=== PATIENT | male | born 1935 | race Caucasian/White ===

== ENCOUNTER → 2024-02-01 | Outpatient (CLI) | payer MEDICARE, BC, SELFPAY ==
--- NOTE | 2024-02-01 | XR_ITS ---
Examination: Hand, left 3 views Technique: Hand AP, oblique, lateral 3 views Date and time of exam: February 01, 2024 at 0722 hours INDICATIONS: Decreased range of motion and pain involving the fourth and fifth digits left hand beginning 4 weeks ago. FINDINGS: Significant osteoarthritis third metacarpal phalangeal joint as well has proximal and distal interphalangeal joints third digit Old deformity ungual tuft tip distal phalanx index finger No acute fracture No dislocation IMPRESSION: Significant osteoarthritis third metacarpophalangeal joint, proximal distal interphalangeal joint third digit
[2024-02-01 08:44] LABS: INR 3.3 (0.9-1.3); Partial Thromboplastin Time 32.8 Seconds (22.0-36.0)
[2024-02-01 08:45] LABS: Prothrombin Time 32.8 Seconds (9.0-12.2)
== END | disposition home or self-care (01) ==
LOC: COPL 06:53
PROVIDERS: PCP Family Medicine; Referring Provider Family Medicine; Visit Provider Radiology Diagnostic Radiology
DX: G56.22 Lesion of ulnar nerve, left upper limb (principal); Z79.01 Long term (current) use of anticoagulants
CPT/HCPCS: 36415; 73130; 85610; 85730

== ENCOUNTER → 2024-02-22 | Outpatient (CLI) | payer MEDICARE, BC, SELFPAY ==
--- NOTE | 2024-02-22 16:08 | XR_ITS ---
Examination: PA lateral chest 2 views Technique: Upright PA lateral chest 2 views Exam date and time: February 22, 2024 1614 hrs. Comparison April 2023 Indications: Coughing beginning 5 days ago. Findings: No significant cardiac enlargement CABG No pneumonia or pulmonary edema Moderate osteopenia Impression: No pneumonia identified
== END | disposition home or self-care (01) ==
PROVIDERS: PCP Family Medicine; Referring Provider Family Medicine; Visit Provider Family Medicine
DX: R05.9 Cough, unspecified (principal)
CPT/HCPCS: 71046

== ENCOUNTER → 2024-03-11 | Outpatient (CLI) | payer MEDICARE, BC, SELFPAY ==
[2024-03-11 14:32] LABS: Basophils # (Auto) 0.1 Thou/mm3 (0.0-0.2); Basophils % (Auto) 1 % (0-2.5); Eosinophils # (Auto) 0.3 Thou/mm3 (0.0-0.5); Eosinophils % (Auto) 3 % (0-10); Hematocrit 42.2 % (41.0-53.0); Hemoglobin 14.1 g/dL (13.5-16.0); Immature Granulocytes % (Auto) 0 % (0-0); Immature Granulocytes Auto 0.03 Thou/mm3 (0.00-0.00); Lymphocytes # (Auto) 2.1 Thou/mm3 (1.0-4.8); Lymphocytes % (Auto) 28 % (10-50); Mean Corpuscular HGB Conc 33.4 g/dl (31.0-37.0); Mean Corpuscular Hemoglobin 30.7 pg (25.0-35.0); Mean Corpuscular Volume 92 fL (80-100); Monocytes # (Auto) 0.8 Thou/mm3 (0.0-0.8); Monocytes % (Auto) 11 % (0-12); Neutrophils # (Auto) 4.3 Thou/mm3 (1.8-7.7); Neutrophils % (Auto) 57 % (37-80); Nucleated Red Blood Cell % 0 /100 WBC (0); Platelet Count 192 Thou/mm3 (140-440); RDW Standard Deviation 47.8 fL (35.1-43.9); White Blood Count 7.6 Thou/mm3 (3.8-10.6)
[2024-03-11 14:35] LABS: INR 1.8 (0.9-1.3); Partial Thromboplastin Time 29.1 Seconds (22.0-36.0); Prothrombin Time 18.5 Seconds (9.0-12.2)
[2024-03-11 15:01] LABS: Alanine Aminotransferase 23 U/L (10-49); Albumin, Serum 4.5 gm/dL (3.4-4.8); Albumin/Globulin Ratio 1.7 (1.2-2.2); Alkaline Phosphatase 113 U/L (46-116); Anion Gap 9 (7-16); Aspartate Amino Transferase 23 U/L (0-34); BUN/Creatinine Ratio 20 Ratio (12-20); Bilirubin,Total 0.5 mg/dL (0.3-1.2); Blood Urea Nitrogen 32 mg/dL (9-23); Calcium 9.5 mg/dL (8.3-10.6); Calcium (Corrected) 9.5 mg/dL (8.5-10.1); Carbon Dioxide 24.4 mMol/L (20.0-31.0); Chloride 104 mMol/L (98-107); Creatinine (Component) 1.6 mg/dL (0.6-1.3); Globulin 2.6 gm/dL (2.3-3.5); Glucose 86 mg/dL (74-106); Osmolality,Calculated 279 (275-295); Potassium 4.5 mMol/L (3.4-5.1); Sodium 137 mMol/L (136-145); Total Protein 7.1 gm/dL (5.7-8.2); eGFR 41 See Note
== END | disposition home or self-care (01) ==
LOC: SCTO 12:54
PROVIDERS: PCP Family Medicine; Referring Provider Nurse Practitioner Family; Visit Provider Nurse Practitioner Family
DX: C67.9 Malignant neoplasm of bladder, unspecified (principal); C64.9 Malignant neoplasm of unspecified kidney, except renal pelvis; I82.409 Acute embolism and thrombosis of unspecified deep veins of unspecified lower extremity
CPT/HCPCS: 36415; 80053; 85025; 85610; 85730

== ENCOUNTER 2024-03-14 09:48 | Outpatient (RCR) | payer MEDICARE, BC, SELFPAY | END 2024-04-08 23:59 | disposition home or self-care (01) | LOC: SCTC 09:48 | PROVIDERS: PCP Family Medicine; Referring Provider Family Medicine; Visit Provider Nurse Practitioner Family | DX: Z09 Encounter for follow-up examination after completed treatment for conditions other than malignant neoplasm (principal); Z86.718 Personal history of other venous thrombosis and embolism; Z79.01 Long term (current) use of anticoagulants; Z85.53 Personal history of malignant neoplasm of renal pelvis; Z90.5 Acquired absence of kidney; Z90.6 Acquired absence of other parts of urinary tract; Z85.820 Personal history of malignant melanoma of skin | CPT/HCPCS: 99212; G0463 ==

== ENCOUNTER → 2024-03-31 | Outpatient (CLI) | payer MEDICARE, BC, SELFPAY ==
[2024-03-31 09:50] LABS: Basophils # (Auto) 0.1 Thou/mm3 (0.0-0.2); Basophils % (Auto) 1 % (0-2.5); Eosinophils # (Auto) 0.3 Thou/mm3 (0.0-0.5); Eosinophils % (Auto) 4 % (0-10); Hematocrit 43.8 % (41.0-53.0); Hemoglobin 14.5 g/dL (13.5-16.0); Immature Granulocytes % (Auto) 0 % (0-0); Immature Granulocytes Auto 0.02 Thou/mm3 (0.00-0.00); Lymphocytes # (Auto) 2.4 Thou/mm3 (1.0-4.8); Lymphocytes % (Auto) 33 % (10-50); Mean Corpuscular HGB Conc 33.1 g/dl (31.0-37.0); Mean Corpuscular Volume 94 fL (80-100); Monocytes # (Auto) 0.8 Thou/mm3 (0.0-0.8); Monocytes % (Auto) 11 % (0-12); Neutrophils # (Auto) 3.8 Thou/mm3 (1.8-7.7); Neutrophils % (Auto) 51 % (37-80); Nucleated Red Blood Cell % 0 /100 WBC (0); Platelet Count 176 Thou/mm3 (140-440); RDW Standard Deviation 49.3 fL (35.1-43.9); Red Blood Count 4.68 Miln/mm3 (4.50-5.90); White Blood Count 7.4 Thou/mm3 (3.8-10.6)
[2024-03-31 10:04] LABS: Alanine Aminotransferase 26 U/L (10-49); Albumin, Serum 4.8 gm/dL (3.4-4.8); Albumin/Globulin Ratio 1.8 (1.2-2.2); Alkaline Phosphatase 118 U/L (46-116); Anion Gap 8 (7-16); Aspartate Amino Transferase 23 U/L (0-34); BUN/Creatinine Ratio 21 Ratio (12-20); Bilirubin,Total 0.7 mg/dL (0.3-1.2); Blood Urea Nitrogen 34 mg/dL (9-23); Calcium 9.5 mg/dL (8.3-10.6); Calcium (Corrected) 9.5 mg/dL (8.5-10.1); Carbon Dioxide 26.4 mMol/L (20.0-31.0); Chloride 105 mMol/L (98-107); Creatinine (Component) 1.6 mg/dL (0.6-1.3); Globulin 2.6 gm/dL (2.3-3.5); Glucose 97 mg/dL (74-106); Osmolality,Calculated 285 (275-295); Sodium 139 mMol/L (136-145); Total Protein 7.4 gm/dL (5.7-8.2); eGFR 41 See Note
== END | disposition home or self-care (01) ==
LOC: SCTO 08:56
PROVIDERS: PCP Family Medicine; Referring Provider Nurse Practitioner Family; Visit Provider Nurse Practitioner Family
DX: C67.9 Malignant neoplasm of bladder, unspecified (principal); C64.9 Malignant neoplasm of unspecified kidney, except renal pelvis
CPT/HCPCS: 36415; 80053; 85025

== ENCOUNTER → 2024-04-01 | Outpatient (BNVA) | payer MEDICARE, BC, SELFPAY | END | disposition home or self-care (01) | PROVIDERS: PCP Family Medicine; Referring Provider Family Medicine; Visit Provider Urology | DX: C67.9 Malignant neoplasm of bladder, unspecified (principal); C66.2 Malignant neoplasm of left ureter; N40.1 Benign prostatic hyperplasia with lower urinary tract symptoms; N13.8 Other obstructive and reflux uropathy; I12.9 Hypertensive chronic kidney disease with stage 1 through stage 4 chronic kidney disease, or unspecified chronic kidney disease; N18.30 Chronic kidney disease, stage 3 unspecified; I25.10 Atherosclerotic heart disease of native coronary artery without angina pectoris; Z86.718 Personal history of other venous thrombosis and embolism; E78.00 Pure hypercholesterolemia, unspecified; I25.2 Old myocardial infarction; K21.9 Gastro-esophageal reflux disease without esophagitis; Z95.1 Presence of aortocoronary bypass graft | CPT/HCPCS: 81003; 99212; G0463 ==

== ENCOUNTER → 2024-04-21 | Outpatient (CLI) | payer MEDICARE, BC, SELFPAY ==
--- NOTE | 2024-04-21 15:00 | XR_ITS ---
Examination: Retroperitoneal ultrasound, complete Technique: Multiple high resolution grayscale images of the retroperitoneum obtained, including kidneys and bladder. Exam date and time:April 21, 2024 1539 hours INDICATIONS: Diagnosis right renal tumor post right nephrectomy 2018, also diagnosis bladder cancer, restaging FINDINGS: Absent right kidney Left kidney 10.8 x 7.3 x 5.2 cm cortex 1.5 cm Upper pole 11 mm cyst Moderate renal parenchymal scar formation No solid renal mass lesion Bladder prevoid volume 179 cc No bladder mass Prostate 3.1 x 2.1 x 3.3 cm Calcification versus nodule 14 x 10 x 15 mm IMPRESSION: Moderate left renal parenchymal scar formation Absent right kidney Recommend transrectal prostate sonography follow-up to differentiate 14 mm calcification versus nodule
== END | disposition home or self-care (01) ==
LOC: CDIM 14:59
PROVIDERS: PCP Family Medicine; Referring Provider Urology; Visit Provider Urology
DX: N28.89 Other specified disorders of kidney and ureter (principal); Z90.5 Acquired absence of kidney; C67.9 Malignant neoplasm of bladder, unspecified
CPT/HCPCS: 76770

== ENCOUNTER → 2024-05-02 | Outpatient (CLI) | payer MEDICARE, BC, SELFPAY ==
[2024-05-02 11:44] LABS: INR 3.9 (0.9-1.3)
[2024-05-02 13:20] LABS: Prothrombin Time 39.2 Seconds (9.0-12.2)
== END | disposition home or self-care (01) ==
LOC: COPL 09:28
PROVIDERS: PCP Family Medicine; Referring Provider Family Medicine; Visit Provider Family Medicine
DX: I82.431 Acute embolism and thrombosis of right popliteal vein (principal)
CPT/HCPCS: 36415; 85610

== ENCOUNTER → 2024-05-17 | Outpatient (CLI) | payer MEDICARE, BC, SELFPAY ==
--- NOTE | 2024-05-17 10:06 | XR_ITS ---
Examination: Foot, right, 3 views Technique: AP, oblique, lateral views foot, 3 views Date and time of exam: May 17, 2024 0917 hrs. Indications: Right foot pain beginning 2 weeks ago. Findings: Moderate bunion deformity Mild to moderate osteoarthritis first metatarsophalangeal joint No fracture Large plantar posterior bony calcaneal spurs Impression: Moderate bunion deformity Mild to moderate osteoarthritis first metatarsophalangeal joint Large plantar posterior bony calcaneal spurs
== END | disposition home or self-care (01) ==
PROVIDERS: PCP Family Medicine; Referring Provider Chiropractor; Visit Provider Chiropractor
DX: M19.071 Primary osteoarthritis, right ankle and foot (principal); M77.31 Calcaneal spur, right foot; M21.611 Bunion of right foot
CPT/HCPCS: 73630

== ENCOUNTER 2024-05-19 14:29 | Outpatient (RCR) | payer MEDICARE, BC, SELFPAY ==
--- NOTE | 2024-06-12 18:56 | CTCFLWUP_ITS ---
Patient: JAC LEON : 1935 Page 8 of 8 FOLLOW UP NOTE DATE OF SERVICE: 05/19/2024 NAME: JAC LEON ACCOUNT: [id number] : 1935 AGE: 89 INTERVAL HISTORY: Patient in for follow-up for right lower extremity DVT. Patient is currently taking Coumadin 4 mg daily, Coumadin managed by PCP. Patient reports he has been taking Coumadin 4 mg for about 5 weeks previously he was on Coumadin 5 mg daily. Patient reports he has an upcoming appointment with [facility] telemedicine for consultation with hematology at the tertiary center due to DVT despite therapeutic dose of Coumadin, previous history of worsening DVTs despite being on Eliquis and Lovenox. Patient's only complaint today is swelling to bilateral lower extremities after a long day of being active, swelling improves when he rests. Patient denies pain to lower extremities, denies numbness, denies tingling. Patient denies chest pain. ONCOLOGY HISTORY: 1. 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 Right nephroureterectomy. F/U with Dr. Ferrell, last follow-up was on 06/28/2023 2. Remote history of melanoma right mormon, 1991. DIAGNOSIS: IVC filter placed by IR, 06/29/2023. Questionable left mid femoral vein DVT, despite therapeutic dose of Coumadin, (09/24/2023). DATE OF DIAGNOSIS: 07/28/2028 STAGE/TNM: PT 1 papillary urothelial carcinoma, arising in the renal pelvis and distal ureter, mostly low-grade (90%) with areas of high-grade (10%). Focal invasion of the subepithelial connective tissue is seen. pT1 pNx pMX. TREATMENT HISTORY: Care?Plan Start?Date Cycle Day Intent HISTORY OF PRESENT ILLNESS: PREVIOUS NOTE: Jac Leon is a 89-year-old ENG speaking male with the following oncology history. 02/17/2018: Patient had abdominal ultrasound done due to right upper abdominal pain radiating to the back for the last 2years. Ultrasound showed probable small renal arterial calculations on the left and mild left renal parenchymal scar formation. 03/11/2018: Patient had CT scan of the abdomen without contrast which showed subtle hyperdense material in the right renal pelvis. 04/16/2018: Patient had CT scan of the abdomen and pelvis with and without contrast which showed filling defects in the right upper pole infundibulum and calyx, right renal pelvis and 3 locations in the distal right ureter along with small para-aortic paracaval lymph nodes. 05/03/2018: Bone scan was negative for bone mets. 05/13/2018: Right ureter biopsy showed noninvasive low-grade papillary carcinoma. 07/02/2018: Patient underwent fluoroscopic imaging of the upper urinary tract, cystoscopy, retrograde pyelogram, endoscopy evaluation of the entire right upper urinary tract, placement of indwelling ureteral stent on the right. He was found to have 2 small papillary 5 mm tumors in the bladder, extensive papillary tumor in the distal ureter, extensive papillary low-grade appearing papillary tumors in the kidney, namely upper pole, mid renal area and lower pole as well as right renal pelvis. 07/05/2018: Urologist Dr. Angelia Ferrell recommended TURBT of the bladder tumor and laparoscopic right nephroureterectomy. Patient has appointment to see Dr. Baez on 07/23/2018. 07/23/2018: Patient had PET CT scan which was a negative study. 07/28/2018: Right-sided complete nephroureterectomy. 11/02/2018: Ultrasound of the abdomen?Suspicious for subtle right lobe liver mass 5.8 x 4.[address] abdomen/liver follow-up pre and post 4 phase intravenous contrast 11/17/2018: CT scan of the abdomen with and without contrast?no interval recurrent renal tumor or metastatic disease. 10/07/2019: PET CT scan? 12/09/2019: RepeatPET CT scan? 10/10/2020: PET CT scan? 05/04/2021: PET/CT scan? 09/05/2022: Doppler ultrasound study of the right lower extremity started anticoagulation with heparin initially followed by Eliquis. 10/01/2022: Doppler ultrasound study of the right lower extremity? 10/30/2022: Bilateral lower extremity venous Doppler ultrasound study? 11/05/2022: Eliquis discontinued. 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 furosemide - 40 mg 1 tab Daily 2. Plavix - 75 mg 1 tab Continuously 3. warfarin - 4 mg 1 tab As directed 4. warfarin - 5 mg 1 tab Daily Medications Last Reconciled by Angelita Farmer MA on 05/19/2024 ALLERGIES: Penicillins REVIEW OF SYSTEMS: A complete 14-point review of systems was performed and is negative except as noted in interval history. PHYSICAL EXAMINATION: VITAL SIGNS: Temperature?98.6, B/P?138/86, Oxygen?Saturation?97% Weight?183?lbs PAIN: 0 - No pain ECOG Performance Status: 1 - Symptomatic; ambulatory; restricted in strenuous activity GENERAL APPEARANCE: Appears well, in no apparent distress, appropriately interactive. HEENT: Normocephalic, normal conjunctiva, lips without lesions, neck normal range of motion. CARDIOVASCULAR: Normal heart sounds PULMONARY: Normal respiratory effort, no respiratory distress or use of accessory muscles, speaking in full sentences, no tachypnea. EXTREMITIES: No pedal edema or cyanosis. SKIN: Normal skin appearance. NEUROLOGIC: Alert and oriented x4. PSHYCHIATRIC: Appropriate affect, mood normal, behavior normal, intact thought and speech. LABORATORY DATA: I have personally reviewed and interpreted each of the patient?s relevant lab tests, abnormal findings are below: Date 03/31/24 06/09/24 ??WHITE?BLOOD?COUNT?(Thou/mm3) 7.4 7.2 ??RED?BLOOD?COUNT?(Miln/mm3) 4.68 4.63 ??HEMOGLOBIN?(gm/dl) 14.5 14.2 ??HEMATOCRIT?(%) 43.8 42.4 ??PLATELET?COUNT?(Thou/mm3) 176 184 ??NEUTROPHILS?%,?AUTO?(%) 51 54 ??LYMPH?%,?AUTO?(%) 33 32 ??NEUTROPHILS,?AUTO?(Thou/mm3) 3.8 3.9 ??GLUCOSE,RANDOM?(mg/dL) 97 96 ??BLOOD?UREA?NITROGEN?(mg/dL) 34?H 26?H ??CREATININE?(mg/dL) 1.60?H 1.80?H ??SODIUM?(mmol/L) 139 141 ??POTASSIUM?(mmol/L) 5.0 4.5 ??CHLORIDE?(mmol/L) 105 103 ??CrCl?(CandG)?(ml/min) 38.82 33.31 ??AST/SGOT?(Unit/L) 23 19 ??ALT/SGPT?(Unit/L) 26 19 ??ALKALINE?PHOSPHATASE?(Unit/L) 118?H 138?H ??BILIRUBIN,?TOTAL?(mg/dL) 0.7 1.2 ??PROTEIN?TOTAL?(gm/dl) 7.4 6.8 ??ALBUMIN,?SERUM?(gm/dl) 4.8 4.3 ??GLOBULIN?(gm/dl) 2.6 2.5 ??ALBUMIN/GLOBULIN?RATIO 1.8 1.7 ??CALCIUM,?SERUM?(mg/dL) 9.5 9.0 ??CALCIUM?SERUM?(CORRECTED)?(mg/dL) 9.5 9.0 ASSESSMENT/PLAN: 1. 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 Right nephroureterectomy at [facility]. PET CT scan essentially negative, 05/04/2021. F/U with Dr. Ferrell, last f/u 06/2023 No clinical evidence of recurrence of urothelial carcinoma. 2. Remote history of melanoma right mormon, s/p resection, 1991. Patient denies any skin concerns. 3. Right lower extremity DVT (10/01/2022) started on Eliquis. Eliquis discontinued on 11/05/2022 due to progression of the DVT. Patient is started on Lovenox 120 mg subcu daily. Lovenox discontinued on 12/18/2022 due to progression of DVT. Currently Mr. Leon is on Coumadin (12/18/2022?) IVC ?lter placed by IR, 06/29/2023. Right leg DVT, questionable left mid femoral vein DVT, despite therapeutic dose of Coumadin, (09/24/2023). 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 Will check for myeleoma and prostate cancer and any other malignancy as patient have recurrent tumor ORDERS: Order # Description [id number] Serum Protein Electrophoresis + Serum Immunofixation Electrophoresis [id number] CT Scan + Abdomen and Pelvis + Chest + With W/O Contrast [id number] PSA [id number] + MD Follow Up 4 Week RETURN TO CLINIC: 4 weeks BILLING AND COMPLIANCE: I reviewed external records from providers outside my specialty as summarized above. I spent a total of 50 minutes on this patient?s care on the day of their visit excluding time spent related to any billed procedures. This time includes time spent with the patient as well as time spent documenting in the medical record, reviewing patients records and tests, obtaining history, placing orders, communicating with other healthcare professionals, counseling the patient, family or caregiver, and/or care coordination for the diagnoses above. Electronically Signed by: {Object.Sanct_ID*[email or web address]@M}, {Object.Sanct_ID*PnP.Suffix@U} D: {Object.Sanct_Date} T: {Object.Sanct_Time} CC: PCP: Fazal Carrillo Referring: Fazal Carrillo This document was completed utilizing speech recognition software. Grammatical errors, random word insertions, pronoun errors, and incomplete sentences are an occasional consequence of this system due to software limitations, ambient noise, and hardware issues. Any formal questions or concerns about the content, text or information contained within the body of this dictation should be directly addressed to the provider for clarification.
== END 2024-06-06 23:59 | disposition home or self-care (01) ==
LOC: SCTC 14:29
PROVIDERS: PCP Family Medicine; Referring Provider Family Medicine; Visit Provider Internal Medicine Hematology & Oncology
DX: Z08 Encounter for follow-up examination after completed treatment for malignant neoplasm (principal); Z85.51 Personal history of malignant neoplasm of bladder; Z86.718 Personal history of other venous thrombosis and embolism; Z79.01 Long term (current) use of anticoagulants; Z85.820 Personal history of malignant melanoma of skin; R60.0 Localized edema; Z90.6 Acquired absence of other parts of urinary tract
CPT/HCPCS: 99212; G0463

== ENCOUNTER → 2024-06-01 | Outpatient (CLI) | payer MEDICARE, BC, SELFPAY ==
[2024-06-01 17:53] LABS: INR 5.6 (0.9-1.3); Prothrombin Time 54.6 Seconds (9.0-12.2)
== END | disposition home or self-care (01) ==
LOC: COPL 16:08
PROVIDERS: PCP Family Medicine; Referring Provider Family Medicine; Visit Provider Family Medicine
DX: I82.431 Acute embolism and thrombosis of right popliteal vein (principal)
CPT/HCPCS: 36415; 85610

== ENCOUNTER → 2024-06-10 | Outpatient (CLI) | payer MEDICARE, BC, SELFPAY ==
[2024-06-09 13:12] LABS: Basophils % (Auto) 1 % (0-2.5); Eosinophils # (Auto) 0.3 Thou/mm3 (0.0-0.5); Eosinophils % (Auto) 4 % (0-10); Hematocrit 42.4 % (41.0-53.0); Hemoglobin 14.2 g/dL (13.5-16.0); Immature Granulocytes % (Auto) 0 % (0-0); Immature Granulocytes Auto 0.01 Thou/mm3 (0.00-0.00); Lymphocytes # (Auto) 2.3 Thou/mm3 (1.0-4.8); Lymphocytes % (Auto) 32 % (10-50); Mean Corpuscular HGB Conc 33.5 g/dl (31.0-37.0); Mean Corpuscular Hemoglobin 30.7 pg (25.0-35.0); Mean Corpuscular Volume 92 fL (80-100); Monocytes # (Auto) 0.7 Thou/mm3 (0.0-0.8); Monocytes % (Auto) 10 % (0-12); Neutrophils # (Auto) 3.9 Thou/mm3 (1.8-7.7); Neutrophils % (Auto) 54 % (37-80); Nucleated Red Blood Cell % 0 /100 WBC (0); Platelet Count 184 Thou/mm3 (140-440); RDW Standard Deviation 44.7 fL (35.1-43.9); Red Blood Count 4.63 Miln/mm3 (4.50-5.90); White Blood Count 7.2 Thou/mm3 (3.8-10.6)
[2024-06-09 13:20] LABS: Alanine Aminotransferase 19 U/L (10-49); Albumin, Serum 4.3 gm/dL (3.4-4.8); Albumin/Globulin Ratio 1.7 (1.2-2.2); Alkaline Phosphatase 138 U/L (46-116); Anion Gap 10 (7-16); Aspartate Amino Transferase 19 U/L (0-34); BUN/Creatinine Ratio 14 Ratio (12-20); Bilirubin,Total 1.2 mg/dL (0.3-1.2); Blood Urea Nitrogen 26 mg/dL (9-23); Carbon Dioxide 28.2 mMol/L (20.0-31.0); Chloride 103 mMol/L (98-107); Creatinine (Component) 1.8 mg/dL (0.6-1.3); Globulin 2.5 gm/dL (2.3-3.5); Glucose 96 mg/dL (74-106); Osmolality,Calculated 285 (275-295); Potassium 4.5 mMol/L (3.4-5.1); Sodium 141 mMol/L (136-145); Total Protein 6.8 gm/dL (5.7-8.2); eGFR 36 See Note
--- NOTE | 2024-06-10 14:00 | XR_ITS ---
Examination: CT chest, without intravenous contrast. CT abdomen, without intravenous contrast. CT pelvis, without intravenous contrast. 2-D sagittal and coronal reconstructions. 3-D reconstructions. Date and time of exam:June 10, [address] chest September 29, 2022, renal sonogram April 21, 2024, CT abdomen pelvis May 15, 2022, CT soft tissue neck August 26, 2022 INDICATIONS: Diagnosis right kidney cancer, post surgical removal, bladder cancer 2019 restaging CTDI vol (mgy) 8.89 DLP (MGycm)626 Technique: Multiple CT images, 3.0 mm slice thickness, obtained chest, abdomen, pelvis, with the high-resolution 64 slice scanner.. Sagittal and coronal 2-D reconstructions are obtained. 3-D reconstructions Low dose protocols were performed. One or more of the following dose reduction techniques were used; automated exposure control, adjustment of the mA and/or KV according to patient size, use of iterative reconstruction technique. Findings: AP dimension ascending thoracic aorta 4.2 cm Mean pulmonary artery segment measures 32 mm Significant coronary artery calcification Mild enlargement cardiac contour No paratracheal tracheobronchial or bronchopulmonary adenopathy Stable bilateral pulmonary nodules compared to CT chest September 29, 2022, no new pulmonary nodules Atelectasis in the right lower lobe No interval pneumonia or pulmonary edema No interval liver or splenic lesion No gallstones No pancreatic mass Normal adrenal glands. IVC filter. Absent right kidney No left renal solid mass No ascites No bowel obstruction Normal appendix Colonic diverticulosis Contracted urinary bladder with no focal urinary bladder mass lesion Prostate is not enlarged Moderate osteopenia Advanced disc narrowing L4-L5 IMPRESSION: No interval metastatic disease
== END | disposition home or self-care (01) ==
PROVIDERS: PCP Family Medicine; Referring Provider Internal Medicine Hematology & Oncology; Visit Provider Internal Medicine Hematology & Oncology
DX: C67.9 Malignant neoplasm of bladder, unspecified (principal); C64.9 Malignant neoplasm of unspecified kidney, except renal pelvis; I82.409 Acute embolism and thrombosis of unspecified deep veins of unspecified lower extremity
CPT/HCPCS: 36415; 71250; 74176; 80053; 85025

== ENCOUNTER → 2024-06-28 | Outpatient (CLI) | payer MEDICARE, BC, SELFPAY ==
[2024-06-28 12:43] LABS: INR 2.7 (0.9-1.3)
== END | disposition home or self-care (01) ==
LOC: COPL 11:20
PROVIDERS: PCP Family Medicine; Referring Provider Family Medicine; Visit Provider Family Medicine
DX: I82.431 Acute embolism and thrombosis of right popliteal vein (principal)
CPT/HCPCS: 36415; 85610

== ENCOUNTER → 2024-06-29 | Outpatient (CLI) | payer MEDICARE, BC, SELFPAY ==
--- NOTE | 2024-06-29 11:27 | XR_ITS ---
Examination: Venous duplex lower extremity sonogram, bilateral. Date and time of exam: June 29, 2024 1208 hours INDICATIONS: Bilateral leg swelling and pain 6 months, patient is anticoagulated, venous Doppler September 24, 2023 nonocclusive deep vein thrombus right femoral vein Technique: Multiple sonographic images of the deep venous system have been obtained. B-mode/2-D grayscale imaging of vascular structures and Doppler spectral analysis (waveforms) and color performed Both legs are examined. Findings: Chronic nonocclusive thrombus right superficial femoral popliteal and peroneal veins Chronic nonocclusive thrombus left superficial femoral popliteal perineal veins as well as posterior tibial vein IMPRESSION: Extensive chronic but nonocclusive DVT as above
== END | disposition home or self-care (01) ==
LOC: CDIM 11:15
PROVIDERS: PCP Family Medicine; Referring Provider Internal Medicine Hematology & Oncology; Visit Provider Internal Medicine Hematology & Oncology
DX: I82.413 Acute embolism and thrombosis of femoral vein, bilateral (principal); C64.9 Malignant neoplasm of unspecified kidney, except renal pelvis; C67.9 Malignant neoplasm of bladder, unspecified
CPT/HCPCS: 93970

== ENCOUNTER 2024-06-30 11:41 | Outpatient (RCR) | payer MEDICARE, BC, SELFPAY ==
--- NOTE | 2024-07-05 02:03 | CTCFLWUP_ITS ---
Patient: JAC LEON : 1935 Page 8 of 9 FOLLOW UP NOTE DATE OF SERVICE: 06/30/2024 NAME: JAC LEON ACCOUNT: [id number] : 1935 AGE: 89 INTERVAL HISTORY: Carolyn, an 89yo male with severe allergies causing difficulty breathing and pressure behind eyes, presented for anticoagulation follow-up. His history includes bladder cancer, chronic DVT, melanoma, and IVC filter placement. He reported leg swelling that improves with rest, chest pain on Easter requiring nitroglycerin, and strict adherence to his blood thinner (reduced from 5mg to 4mg daily). Imaging showed chronic blood clots without enlargement. Management includes continuing anticoagulation, daily walking, leg elevation, [facility] Telemedicine referral, and continued cancer surveillance. Patient in for follow-up for right lower extremity DVT. Patient is currently taking Coumadin 4 mg daily, Coumadin managed by PCP. Patient reports he has been taking Coumadin 4 mg for about 5 weeks previously he was on Coumadin 5 mg daily. Patient reports he has an upcoming appointment with [facility] telemedicine for consultation with hematology at the tertiary center due to DVT despite therapeutic dose of Coumadin, previous history of worsening DVTs despite being on Eliquis and Lovenox. Patient's only complaint today is swelling to bilateral lower extremities after a long day of being active, swelling improves when he rests. Patient denies pain to lower extremities, denies numbness, denies tingling. Patient denies chest pain. Chief Complaint Severe allergies causing difficulty breathing, pressure behind the eyes, swelling in legs that improves with rest, chest pain on Easter morning requiring nitroglycerin History of Present Illness Mr. Carolyn Nathan, an 89-year-old male with a history of bladder cancer and chronic blood clots, presents for follow-up of his anticoagulation therapy and evaluation of persistent leg swelling. He reports ongoing allergies since moving to the [place], experiencing severe symptoms year-round, particularly when grass is cut on the cow pasture. He describes feeling significant pressure behind his eyes and difficulty breathing, stating he never had allergies before coming here. The patient's leg swelling remains present but improves with rest or when lying down. He denies any new pain in his legs. Mr. Nathan reports strict adherence to his prescribed blood thinner medication, stating I take the medicine every day. I don't miss. He expresses concern about an upcoming trip to [place], questioning if air travel would be problematic given his condition. On , Mr. Nathan experienced chest pain while preparing food at 3 AM. He reports taking nitroglycerin and resting for about 20 minutes, after which the pain subsided. He confirms that he sees a hedis abstractor for this issue. 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 He recently purchased a tractor with an enclosed cab to reduce sun exposure while mowing. Mr. Nathan notes that he bleeds easily but denies excessive bruising. 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 He mentions taking in stray dogs and states that he doesn't eat a lot of meat. 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) - Inferior vena cava (IVC) filter placement in June 2023 Surgical History - IV filter placement in June 2023 - Bladder cancer surgery (stage 1), kidney removed Medications and Supplements - Blood thinner 4 mg daily - Changed from 5 mg to 4 mg about 5 weeks ago - Patient reports taking it every day without missing doses - Not working as well as it should, patient failing anticoagulation - Nitroglycerin - Taken as needed for chest pain Allergies - 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 in the hospital causing severe symptoms including difficulty breathing - Environmental allergies to [place] allergens, experienced year-round - Environmental allergies triggered by grass cutting on cow pasture Family History - Father: Leukemia, at age 63 - First : Brain aneurysm, Social History - 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 HEENT: Positive for pressure behind the eyes, nasal congestion. Respiratory: Positive for difficulty breathing. Cardiovascular: Positive for leg swelling that improves with rest and elevation. Musculoskeletal: Positive for leg pain. ONCOLOGY HISTORY:?[facility] Hx? 1. 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 Right nephroureterectomy. F/U with Dr. Ferrell, last follow-up was on 06/28/2023 2. Remote history of melanoma right yazidism, 1991. DIAGNOSIS: ?[facility] Dx? IVC filter placed by IR, 06/29/2023. Questionable left mid femoral vein DVT, despite therapeutic dose of Coumadin, (09/24/2023). DATE OF DIAGNOSIS: 07/28/2028 STAGE/TNM: PT 1 papillary urothelial carcinoma, arising in the renal pelvis and distal ureter, mostly low-grade (90%) with areas of high-grade (10%). Focal invasion of the subepithelial connective tissue is seen. pT1 pNx pMX. TREATMENT HISTORY: Care?Plan Start?Date Cycle Day Intent HISTORY OF PRESENT ILLNESS: PREVIOUS NOTE: Jac Leon is a 89-year-old ENG speaking male with the following oncology history. 02/17/2018: Patient had abdominal ultrasound done due to right upper abdominal pain radiating to the back for the last 2years. Ultrasound showed probable small renal arterial calculations on the left and mild left renal parenchymal scar formation. 03/11/2018: Patient had CT scan of the abdomen without contrast which showed subtle hyperdense material in the right renal pelvis. 04/16/2018: Patient had CT scan of the abdomen and pelvis with and without contrast which showed filling defects in the right upper pole infundibulum and calyx, right renal pelvis and 3 locations in the distal right ureter along with small para-aortic paracaval lymph nodes. 05/03/2018: Bone scan was negative for bone mets. 05/13/2018: Right ureter biopsy showed noninvasive low-grade papillary carcinoma. 07/02/2018: Patient underwent fluoroscopic imaging of the upper urinary tract, cystoscopy, retrograde pyelogram, endoscopy evaluation of the entire right upper urinary tract, placement of indwelling ureteral stent on the right. He was found to have 2 small papillary 5 mm tumors in the bladder, extensive papillary tumor in the distal ureter, extensive papillary low-grade appearing papillary tumors in the kidney, namely upper pole, mid renal area and lower pole as well as right renal pelvis. 07/05/2018: Urologist Dr. Angelia Ferrell recommended TURBT of the bladder tumor and laparoscopic right nephroureterectomy. Patient has appointment to see Dr. Baez on 07/23/2018. 07/23/2018: Patient had PET CT scan which was a negative study. 07/28/2018: Right-sided complete nephroureterectomy. 11/02/2018: Ultrasound of the abdomen?Suspicious for subtle right lobe liver mass 5.8 x 4.[address] abdomen/liver follow-up pre and post 4 phase intravenous contrast 11/17/2018: CT scan of the abdomen with and without contrast?no interval recurrent renal tumor or metastatic disease. 10/07/2019: PET CT scan? 12/09/2019: RepeatPET CT scan? 10/10/2020: PET CT scan? 05/04/2021: PET/CT scan? 09/05/2022: Doppler ultrasound study of the right lower extremity started anticoagulation with heparin initially followed by [facility]. 10/01/2022: Doppler ultrasound study of the right lower extremity? 10/30/2022: Bilateral lower extremity venous Doppler ultrasound study? 11/05/2022: Eliquis discontinued. 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 SOCIAL HISTORY: MEDICATIONS: 1. furosemide - 40 mg 1 tab Daily 2. Plavix - 75 mg 1 tab Continuously 3. warfarin - 5 mg 1 tab Daily 4. warfarin - 4 mg 1 tab Daily?[facility] Meds? Medications Last Reconciled by Angelita Farmer MA on 06/30/2024 ALLERGIES: Penicillins REVIEW OF SYSTEMS: A complete 14-point review of systems was performed and is negative except as noted in interval history. PHYSICAL EXAMINATION:?[facility] PE? VITAL SIGNS: Temperature?98.6, B/P?129/81, Oxygen?Saturation?97% Weight?181?lbs PAIN: 0 - No pain ECOG Performance Status: 0 - Asymptomatic and fully active GENERAL APPEARANCE: Appears well, in no apparent distress, appropriately interactive. HEENT: Normocephalic, normal conjunctiva, lips without lesions, neck normal range of motion. CARDIOVASCULAR: Normal heart sounds PULMONARY: Normal respiratory effort, no respiratory distress or use of accessory muscles, speaking in full sentences, no tachypnea. EXTREMITIES: No pedal edema or cyanosis. SKIN: Normal skin appearance. NEUROLOGIC: Alert and oriented x4. PSHYCHIATRIC: Appropriate affect, mood normal, behavior normal, intact thought and speech. LABORATORY DATA: I have personally reviewed and interpreted each of the patient?s relevant lab tests, abnormal findings are below: Physical Examination Skin: Evidence of significant sun damage noted. Laboratory, Imaging, and Diagnostic Test Results - CT scan (date not specified): Negative for metastatic disease, no cancer detected. Multiple chronic blood clots noted. - Venous ultrasound (date not specified): Chronic blood clots present, not disappearing but also not enlarging. Date 03/31/24 06/09/24 ??WHITE?BLOOD?COUNT?(Thou/mm3) 7.4 7.2 ??RED?BLOOD?COUNT?(Miln/mm3) 4.68 4.63 ??HEMOGLOBIN?(gm/dl) 14.5 14.2 ??HEMATOCRIT?(%) 43.8 42.4 ??PLATELET?COUNT?(Thou/mm3) 176 184 ??NEUTROPHILS?%,?AUTO?(%) 51 54 ??LYMPH?%,?AUTO?(%) 33 32 ??NEUTROPHILS,?AUTO?(Thou/mm3) 3.8 3.9 ??GLUCOSE,RANDOM?(mg/dL) 97 96 ??BLOOD?UREA?NITROGEN?(mg/dL) 34?H 26?H ??CREATININE?(mg/dL) 1.60?H 1.80?H ??SODIUM?(mmol/L) 139 141 ??POTASSIUM?(mmol/L) 5.0 4.5 ??CHLORIDE?(mmol/L) 105 103 ??CrCl?(CandG)?(ml/min) 38.82 33.31 ??AST/SGOT?(Unit/L) 23 19 ??ALT/SGPT?(Unit/L) 26 19 ??ALKALINE?PHOSPHATASE?(Unit/L) 118?H 138?H ??BILIRUBIN,?TOTAL?(mg/dL) 0.7 1.2 ??PROTEIN?TOTAL?(gm/dl) 7.4 6.8 ??ALBUMIN,?SERUM?(gm/dl) 4.8 4.3 ??GLOBULIN?(gm/dl) 2.6 2.5 ??ALBUMIN/GLOBULIN?RATIO 1.8 1.7 ??CALCIUM,?SERUM?(mg/dL) 9.5 9.0 ??CALCIUM?SERUM?(CORRECTED)?(mg/dL) 9.5 9.0 ASSESSMENT/PLAN:?[place] Assessment/Plan? 1. 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 Right nephroureterectomy at [facility]. PET CT scan essentially negative, 05/04/2021. F/U with Dr. Ferrell, last f/u 06/2023 No clinical evidence of recurrence of urothelial carcinoma. Mr. Li, an 89-year-old male with a history of bladder cancer and chronic venous thromboembolism, presents for follow-up of lower extremity swelling and evaluation of anticoagulation therapy efficacy. Chronic Venous Thromboembolism Assessment: Patient has a history of chronic venous thromboembolism with persistent lower extremity swelling that improves with rest and elevation. He is currently on anticoagulation therapy (4 mg daily, reduced from 5 mg about 5 weeks ago). Recent CT scan shows no evidence of metastatic disease or cancer recurrence. However, ultrasound reveals persistent chronic blood clots in the legs, which are not resolving despite anticoagulation. The clots are not enlarging, suggesting some efficacy of the current anticoagulation regimen. Given the chronic nature of the clots, there is a possibility of calcification, making them resistant to resolution. An IVC filter was placed in June 2023 to prevent clot migration. Plan: - Continue current anticoagulation therapy (4 mg daily) - Advise patient to: - Walk for 20 minutes daily - Elevate legs for 20 minutes in the evening - Avoid aggressive leg massage - Seek immediate medical attention if legs become more swollen or painful - Refer to [facility] Telemedicine for further evaluation and management - Consider additional imaging studies at [facility] to assess clot characteristics and vascular status - Educate patient on: - Importance of medication adherence - Safe travel practices while on anticoagulation - Risks and benefits of current management approach - Follow up after [facility] consultation to review recommendations and adjust management plan as needed History of Bladder Cancer Assessment: Patient has a history of stage 1 bladder cancer, which was caught early. Recent CT scan shows no evidence of metastatic disease or cancer recurrence. Patient underwent treatment that involved preservation of one kidney, which was at risk. Plan: - Continue surveillance as per oncology guidelines - Maintain communication with [facility] oncology team for coordinated care Cardiovascular Concerns Assessment: Patient reports an episode of chest pain on morning, which resolved with nitroglycerin use and rest after 20 minutes. He is currently under the care of a hedis abstractor. The patient is on anticoagulation therapy, which provides some cardiovascular protection, but is not on aspirin due to bleeding risk considerations. Plan: - Advise patient to report recent chest pain episode to hedis abstractor - Defer decision on aspirin therapy to hedis abstractor, considering bleeding risk vs. potential benefits - Continue current anticoagulation therapy as prescribed - Educate patient on signs and symptoms requiring immediate medical attention Sun Damage Assessment: Patient shows evidence of significant sun damage, likely due to outdoor work activities. Recent lifestyle changes include use of an enclosed tractor cab to reduce sun exposure. Plan: - Educate patient on importance of sun protection measures - Encourage regular skin examinations as part of ongoing cancer surveillance 2. Remote history of melanoma right yazidism, s/p resection, 1991. Patient denies any skin concerns. 3. Right lower extremity DVT (10/01/2022) started on Eliquis. Eliquis discontinued on 11/05/2022 due to progression of the DVT. Patient is started on Lovenox 120 mg subcu daily. Lovenox discontinued on 12/18/2022 due to progression of DVT. Currently Mr. Leon is on Coumadin (12/18/2022?) IVC ?lter placed by IR, 06/29/2023. Right leg DVT, questionable left mid femoral vein DVT, despite therapeutic dose of Coumadin, (09/24/2023). Patient is on Coumadin to 5 mg daily today and follow-up with PCP for inr monitoring Pending consultation with [facility] hematology, tertiary center for second opinion with hematology due to recurrent DVTs despite the therapeutic dose of Coumadin, previous history worsening DVTs despite being on Eliquis and Lovenox. Will check for myeleoma and prostate cancer and any other malignancy as patient have recurrent tumor BILLING AND COMPLIANCE: I reviewed external records from providers outside my specialty as summarized above. I spent a total of 50 minutes on this patient?s care on the day of their visit excluding time spent related to any billed procedures. This time includes time spent with the patient as well as time spent documenting in the medical record, reviewing patients records and tests, obtaining history, placing orders, communicating with other healthcare professionals, counseling the patient, family or caregiver, and/or care coordination for the diagnoses above. Electronically Signed by: Buck Boothe MD T: 2:01 AM CC: PCP: Buck Boothe Referring: Fazal Carrillo This document was completed utilizing speech recognition software. Grammatical errors, random word insertions, pronoun errors, and incomplete sentences are an occasional consequence of this system due to software limitations, ambient noise, and hardware issues. Any formal questions or concerns about the content, text or information contained within the body of this dictation should be directly addressed to the provider for clarification.
== END 2024-07-06 23:59 | disposition home or self-care (01) ==
LOC: SCTC 11:41
PROVIDERS: PCP Family Medicine; Referring Provider Family Medicine; Visit Provider Internal Medicine Hematology & Oncology
DX: I82.503 Chronic embolism and thrombosis of unspecified deep veins of lower extremity, bilateral (principal); Z79.01 Long term (current) use of anticoagulants; Z85.51 Personal history of malignant neoplasm of bladder; Z90.5 Acquired absence of kidney; Z90.6 Acquired absence of other parts of urinary tract
CPT/HCPCS: 99212; G0463

== ENCOUNTER → 2024-07-26 | Outpatient (CLI) | payer MEDICARE, BC, SELFPAY ==
[2024-07-26 09:36] LABS: INR 2.5 (0.9-1.3); Prothrombin Time 25.8 Seconds (9.0-12.2)
== END | disposition home or self-care (01) ==
PROVIDERS: PCP Family Medicine; Referring Provider Family Medicine; Visit Provider Family Medicine
DX: I82.431 Acute embolism and thrombosis of right popliteal vein (principal)
CPT/HCPCS: 36415; 85610

== ENCOUNTER → 2024-07-29 | Outpatient (BNVA) | payer MEDICARE, BC, SELFPAY | END | disposition home or self-care (01) | PROVIDERS: PCP Family Medicine; Referring Provider Family Medicine; Visit Provider Urology | DX: C64.1 Malignant neoplasm of right kidney, except renal pelvis (principal); C67.9 Malignant neoplasm of bladder, unspecified; N40.1 Benign prostatic hyperplasia with lower urinary tract symptoms; N13.8 Other obstructive and reflux uropathy; I25.10 Atherosclerotic heart disease of native coronary artery without angina pectoris; I12.9 Hypertensive chronic kidney disease with stage 1 through stage 4 chronic kidney disease, or unspecified chronic kidney disease; N18.30 Chronic kidney disease, stage 3 unspecified; I82.409 Acute embolism and thrombosis of unspecified deep veins of unspecified lower extremity | CPT/HCPCS: 81003; 99212; G0463 ==

== ENCOUNTER → 2024-07-29 | Outpatient (CLI) | payer MEDICARE, BC, SELFPAY ==
--- NOTE | 2024-07-29 08:28 | XR_ITS ---
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
[2024-07-29 11:34] LABS: Alanine Aminotransferase 15 U/L (10-49); Albumin, Serum 4.8 gm/dL (3.4-4.8); Albumin/Globulin Ratio 1.7 (1.2-2.2); Alkaline Phosphatase 128 U/L (46-116); Anion Gap 8 (7-16); Aspartate Amino Transferase 17 U/L (0-34); BUN/Creatinine Ratio 16 Ratio (12-20); Bilirubin,Total 1.1 mg/dL (0.3-1.2); Blood Urea Nitrogen 27 mg/dL (9-23); Calcium 9.3 mg/dL (8.3-10.6); Calcium (Corrected) 9.3 mg/dL (8.5-10.1); Carbon Dioxide 27.1 mMol/L (20.0-31.0); Cardiac Risk Estimate 2.7 RATIO (4.0-6.7); Chloride 106 mMol/L (98-107); Cholesterol 101 mg/dL (132-200); Creatinine (Component) 1.7 mg/dL (0.6-1.3); Globulin 2.8 gm/dL (2.3-3.5); Glucose 109 mg/dL (74-106); HDL Cholesterol 37 mg/dL (40-60); LDL Cholesterol,Calculated 46 mg/dL (0-130); Osmolality,Calculated 287 (275-295); Potassium 5.2 mMol/L (3.4-5.1); Prostate Specific Antigen 0.49 ng/mL (0-4.00); Sodium 141 mMol/L (136-145); Total Protein 7.6 gm/dL (5.7-8.2); Triglycerides 88 mg/dL (30-150); eGFR 38 See Note
== END | disposition home or self-care (01) ==
LOC: CDIM 08:17 → COPL 08:44
PROVIDERS: PCP Family Medicine; Referring Provider Family Medicine; Visit Provider Family Medicine
DX: M51.369 Other intervertebral disc degeneration, lumbar region without mention of lumbar back pain or lower extremity pain (principal); M48.061 Spinal stenosis, lumbar region without neurogenic claudication; N42.9 Disorder of prostate, unspecified; E78.1 Pure hyperglyceridemia; Z13.1 Encounter for screening for diabetes mellitus
CPT/HCPCS: 36415; 72110; 80053; 80061; 84153

== ENCOUNTER → 2024-08-10 | Outpatient (CLI) | payer MEDICARE, BC, SELFPAY ==
[2024-08-10 10:33] LABS: INR 2.5 (0.9-1.3); Prothrombin Time 26.1 Seconds (9.0-12.2)
[2024-08-10 10:41] LABS: Free T4 (Free Thyroxine) 0.95 ng/dL (0.89-1.76); Thyroid Stimulating Hormone 4.93 uIU/mL (0.55-4.78)
== END | disposition home or self-care (01) ==
LOC: COPL 09:42
PROVIDERS: PCP Family Medicine; Referring Provider Family Medicine; Visit Provider Family Medicine
DX: E03.2 Hypothyroidism due to medicaments and other exogenous substances (principal); I82.431 Acute embolism and thrombosis of right popliteal vein
CPT/HCPCS: 36415; 84439; 84443; 85610

== ENCOUNTER → 2024-09-12 | Outpatient (CLI) | payer MEDICARE, BC, SELFPAY ==
--- NOTE | 2024-09-12 15:45 | XR_ITS ---
Examination: MRI lumbar spine without contrast Date and time of exam: September 12, 2024 1444 hours Comparison December 27, 2019 INDICATIONS: Lifting injury 20 years ago with persistent low back pain Technique: Multiple MRI axial and sagittal sections lumbar spine. Sagittal T2-weighted images, TR 3500, TE 118 T1 weighted transverse sections, TR 688 T8.5, T2-weighted sagittal sections T1 weighted sagittal sections TR 621, TE 30 T2 axial sections, TR 4, 190, TE 84. Findings: Transitional S1 vertebral body No lumbar fracture Moderate disc narrowing L4-L5, advanced disc narrowing L5-S1 No spondylolisthesis L5-S1 3 mm central lumbar disc bulge with mild bilateral L5 ganglionic compression L4-L5 2 mm central lumbar disc bulge L3-L4 no disc protrusion L2-L3 no disc protrusion L1-L2 no disc protrusion IMPRESSION: Advanced degenerative disc disease L5-S1 L5-S1 3 mm central lumbar disc bulge, bilateral neural foraminal stenosis with mild bilateral L5 ganglionic compression L4-L5 2 mm central lumbar disc bulge
== END | disposition home or self-care (01) ==
PROVIDERS: PCP Family Medicine; Referring Provider Family Medicine; Visit Provider Family Medicine
DX: M51.370 Other intervertebral disc degeneration, lumbosacral region with discogenic back pain only (principal); M51.360 Other intervertebral disc degeneration, lumbar region with discogenic back pain only
CPT/HCPCS: 72148

== ENCOUNTER → 2024-09-12 | Outpatient (CLI) | payer MEDICARE, BC, SELFPAY ==
[2024-09-05 10:22] LABS: Basophils # (Auto) 0.0 Thou/mm3 (0.0-0.2); Basophils % (Auto) 1 % (0-2.5); Eosinophils # (Auto) 0.2 Thou/mm3 (0.0-0.5); Eosinophils % (Auto) 4 % (0-10); Hematocrit 45.1 % (41.0-53.0); Hemoglobin 14.9 g/dL (13.5-16.0); Immature Granulocytes Auto 0.01 Thou/mm3 (0.00-0.00); Lymphocytes # (Auto) 2.4 Thou/mm3 (1.0-4.8); Lymphocytes % (Auto) 37 % (10-50); Mean Corpuscular HGB Conc 33.0 g/dl (31.0-37.0); Mean Corpuscular Hemoglobin 30.5 pg (25.0-35.0); Mean Corpuscular Volume 92 fL (80-100); Monocytes # (Auto) 0.6 Thou/mm3 (0.0-0.8); Monocytes % (Auto) 10 % (0-12); Neutrophils # (Auto) 3.1 Thou/mm3 (1.8-7.7); Neutrophils % (Auto) 48 % (37-80); Nucleated Red Blood Cell # 0.00 Thou/mm3 (0.00-0.00); Nucleated Red Blood Cell % 0 /100 WBC (0); Platelet Count 192 Thou/mm3 (140-440); RDW Standard Deviation 45.9 fL (35.1-43.9); Red Blood Count 4.89 Miln/mm3 (4.50-5.90); White Blood Count 6.4 Thou/mm3 (3.8-10.6)
[2024-09-05 10:25] LABS: INR 2.0 (0.9-1.3); Prothrombin Time 21.3 Seconds (9.0-12.2)
[2024-09-05 10:38] LABS: Alanine Aminotransferase 16 U/L (10-49); Albumin, Serum 4.9 gm/dL (3.4-4.8); Albumin/Globulin Ratio 2.1 (1.2-2.2); Alkaline Phosphatase 126 U/L (46-116); Anion Gap 7 (7-16); Aspartate Amino Transferase 19 U/L (0-34); BUN/Creatinine Ratio 18 Ratio (12-20); Bilirubin,Total 1.2 mg/dL (0.3-1.2); Blood Urea Nitrogen 33 mg/dL (9-23); Calcium 10.2 mg/dL (8.3-10.6); Calcium (Corrected) 10.2 mg/dL (8.5-10.1); Carbon Dioxide 26.5 mMol/L (20.0-31.0); Chloride 104 mMol/L (98-107); Creatinine (Component) 1.8 mg/dL (0.6-1.3); Globulin 2.3 gm/dL (2.3-3.5); Glucose 106 mg/dL (74-106); Osmolality,Calculated 281 (275-295); Potassium 5.4 mMol/L (3.4-5.1); Sodium 137 mMol/L (136-145); Total Protein 7.2 gm/dL (5.7-8.2); eGFR 36 See Note
== END | disposition home or self-care (01) ==
PROVIDERS: PCP Family Medicine; Referring Provider Nurse Practitioner Family; Visit Provider Nurse Practitioner Family
DX: C67.9 Malignant neoplasm of bladder, unspecified (principal); C64.9 Malignant neoplasm of unspecified kidney, except renal pelvis; I82.409 Acute embolism and thrombosis of unspecified deep veins of unspecified lower extremity; Z53.8 Procedure and treatment not carried out for other reasons
CPT/HCPCS: 36415; 80053; 85025; 85610

== ENCOUNTER 2024-10-12 10:11 | Inpatient (IN) | payer MEDICARE, BC, SELFPAY ==
[2024-10-12] VITALS (9 sets, daily range): BP systolic 132–144; BP diastolic 72–83; PULSE 70–75; RESP 15–97; TEMP 37–38.2; O2SAT 93–99; BMI 26.7
--- NOTE | 2024-10-12 10:52 | XR_ITS ---
Examination: Abdomen AP single view Technique: AP portable supine abdomen, single view Exam date and time: October 12, 2024 1109 hours INDICATIONS: Abdominal pain today. FINDINGS: Mild air and stool throughout the colon A few loops of air distended small bowel Mildly air distended stomach No free air IMPRESSION: Mildly air distended stomach Mild small bowel ileus
--- NOTE | 2024-10-12 10:57 | XR_ITS ---
Examination: AP chest single view Technique one AP portable upright chest single view Date and time: October 12, 2024 1124 hours Comparison February 23, 2024 INDICATIONS: Chest pain today. FINDINGS: Normal heart size. CABG. Cardiac leads satisfactory position. No pneumonia or pulmonary edema IMPRESSION: No pneumonia or pulmonary edema
--- NOTE | 2024-10-12 10:57 | EKG_ITS ---
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
[2024-10-12 11:13] LABS: Lactate (Lactic Acid) 1.3 mMol/L (0.4-2.0)
[2024-10-12 11:16] LABS: Basophils # (Auto) 0.0 Thou/mm3 (0.0-0.2); Basophils % (Auto) 1 % (0-2.5); Eosinophils # (Auto) 0.1 Thou/mm3 (0.0-0.5); Eosinophils % (Auto) 1 % (0-10); Hematocrit 41.5 % (41.0-53.0); Hemoglobin 14.2 g/dL (13.5-16.0); Immature Granulocytes Auto 0.01 Thou/mm3 (0.00-0.00); Lymphocytes # (Auto) 0.9 Thou/mm3 (1.0-4.8); Lymphocytes % (Auto) 18 % (10-50); Mean Corpuscular HGB Conc 34.2 g/dl (31.0-37.0); Mean Corpuscular Hemoglobin 31.1 pg (25.0-35.0); Mean Corpuscular Volume 91 fL (80-100); Monocytes # (Auto) 0.8 Thou/mm3 (0.0-0.8); Monocytes % (Auto) 16 % (0-12); Neutrophils # (Auto) 3.2 Thou/mm3 (1.8-7.7); Neutrophils % (Auto) 64 % (37-80); Nucleated Red Blood Cell # 0.00 Thou/mm3 (0.00-0.00); Nucleated Red Blood Cell % 0 /100 WBC (0); Platelet Count 164 Thou/mm3 (140-440); RDW Standard Deviation 48.0 fL (35.1-43.9); Red Blood Count 4.56 Miln/mm3 (4.50-5.90); White Blood Count 5.0 Thou/mm3 (3.8-10.6)
[2024-10-12] MEDS: SODIUM CHLORIDE 0.9% 500 ML 500 ML 999 ML IV (11:26)
--- NOTE | 2024-10-12 11:37 | EDNOTE_ITS ---
<Statement entered by Asya Veras MD - 10/12/24 15:11> I, Asya Veras MD, have reviewed the history, exam, and assessment of the patient. I have evaluated the patient independently and agree with the plan of care documented by [ ]. All diagnostic studies were reviewed and discussed. I confirm the diagnosis as documented by the Resident. I was present during the Medical Decision Making for this patient. The patient's plan of care was created between myself and the Resident and consistent with our discussion of the patient's case. 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 Patient states that his primary care physician referred him today to the ER because he had some diverticulitis and a fever at his office. Patient states that he has been nauseated and has been having constipation a few days ago and then he took some laxatives with help to improve his constipation and he just had diarrhea. He then mentioned that his abdominal pain did not subside and that today his primary care physician told him to come to the ER. Patient denies having any cough, shortness of breath, chest pain, or active vomiting. Patient states that he has not peed attention to his stool systolic that there was any blood. Otherwise has no other complaints. Patient still passing gas. Of note patient had a fall around 2 weeks ago at he saw his primary care physician for this and primary care physician placed wound dressing and covered the wound. Patient denied hitting his at that time. Denies any smoking, drugs, alcohol Only abdominal surgery is nephrectomy Related Data Home Medications ?Medication ?Instructions ?Recorded ?Confirmed furosemide 20 mg tablet 40 mg PO QDAY 04/19/1910/12 warfarin 5 mg tablet 5 mg PO QDAY 12/23/22 levothyroxine 25 mcg tablet 25 mcg PO DAILY 04/21/23 0 10/12/24 Allergies Allergy/AdvReac Type Severity Reaction Status Date / Time Penicillins Allergy Severe Swelling Verified 10/12/24 10:16 Review of Systems Review of Systems Systems Reviewed: All systems reviewed, normal except as documented Past Medical History Past Medical History CARDIAC: Positive Coronary Artery Disease Surgical History OTHER SURGICAL HX: Pacemaker placement, right nephrectomy, angiogram and and plasty of right lower extremity, back surgery, prostate surgery Social History SOCIAL: No tobacco use, no illicit drug use, no alcohol use, 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 External ears normal. No rhinorrhea. Moist mucous membranes. Neck: Supple, full range of motion, no observable masses, No meningeal sign. Lungs: No Respiratory distress, clear bilateral. CV: RRR, no murmurs. Abdomen: Distended, but soft, generalized tenderness to palpation, but greater in the LLQ, mildly hypoactive bowel sounds in the L side compared to R side, No rebound tenderness. MSK: No joint swelling, no redness, peripheral pulses presents, lumbar with no edema. Skin: No rashes, petechiae, lesions. Abrasion in the L posterior forearm with pus like material and skin flap. Neuro: No focal neurological deficits appreciated, sensory and motor intact. Psych: Cooperative, appropriate mood and effect. Course Quality Measures none Orders Category Date Time Status Airborne precautions NOW Care 10/12/24 12:12 Active Bedside COVID-19 Antigen Test NOW Care 10/12/24 11:25 Active Bedside Influenza A&B Antigen Test NOW Care 10/12/24 11:25 Completed EKG (ED ONLY) *Do not use* NOW Care 10/12/24 10:57 Completed Insert IV NOW Care 10/12/24 10:[address] abdomen pelvis wo con Stat Exams 10/12/24 11:50 Completed EKG (ED Only) Stat Exams 10/12/24 10:57 Draft XR abdomen 1V Stat Exams 10/12/24 10:52 Completed XR chest 1V portable Stat Exams 10/12/24 10:57 Completed BNP [B-Type Natriuretic Peptide] Stat Lab 10/12/24 13:06 Completed Blood Culture (Lab) Stat Lab 10/12/24 11:44 Received CBC Stat Lab 10/12/24 11:03 Completed CMP [Comprehensive Metabolic Panel] Stat Lab 10/12/24 13:06 Completed Drug Screen,Urine Stat Lab 10/12/24 13:12 Completed Lactate (Lactic Acid) Stat Lab 10/12/24 11:03 Completed Magnesium Stat Lab 10/12/24 13:06 Completed PT [Prothrombin Time with INR] Stat Lab 10/12/24 11:30 Completed PTT [Partial Thromboplastin Time] Stat Lab 10/12/24 11:30 Completed Procalcitonin Stat Lab 10/12/24 13:06 Completed UA [Urinalysis] Stat Lab 10/12/24 13:12 Completed CIPROFLOXACIN/D5w 400 MG IVPB [Cipro Ivpb] Med 10/12/24 11:39 Discontinued 400 mg in 200 ml IV X1 Sodium Chloride 0.9% 1000 ml [Ns] 1,000 ml Med 10/12/24 11:40 Discontinued IV 999 mls/hr Sodium Chloride 0.9% 500 ml [Ns] 500 ml Med 10/12/24 10:59 Discontinued IV 999 mls/hr metroNIDAZOLE/NS 500 MG IVPB [Flagyl 500 mg IV] Med 10/12/24 11:38 Discontinued 500 mg in 100 ml IV X1 Vital Signs Vital signs: Vital Signs Temperature 100.7 F H 10/12/24 11:36 Pulse Rate 70 10/12/24 11:36 Respiratory Rate 20 10/12/24 11:36 Blood Pressure 136/73 H 10/12/24 11:36 Pulse Oximetry (%) 99 10/12/24 11:36 Oxygen Delivery Method Room Air 10/12/24 11:36 Discharge Plan Plan Patient Disposition: Admit Acute Care w/in Hospital Prescriptions/Referrals Prescriptions/Med Rec: No Action warfarin 5 mg tablet 5 mg PO QDAY furosemide 20 mg tablet 40 mg PO QDAY levothyroxine 25 mcg tablet 25 mcg PO DAILY Referrals: Fazal Carrillo MD [Primary Care Provider] - In 1 week Problem List Clinical Impression: Acute diverticulitis Patient/Caregiver Discharge Instructions Print Language: Icelandic Stand Alone Forms: Veronica Award Info., Patient Portal Info Letter MDM Narrative MDM hospital course: Patient was seen and assessed immediately upon arrival to the room. Diagnostic imaging and labs were ordered. At this time patient's L arm wound was cleaned and redressed. 11:40: Abdominal x-ray showed small bowel ileus and distended stomach and chest x-ray was unremarkable. At this time a abdomen CT was ordered. At this time it was also ordered ciprofloxacin and metronidazole given patient's fever, but patient does not have a white count. Also ordered 1.5 L of IV fluids. 1:12: Reviewed CT abd/pelv and showed acute diverticulitis. 1:15: Discussed findings with patient. 14:44: Spoke with IM team for admission for acute diverticulitis. IM team will see the patient for admission. Case disclosed with Attending Dr. Rito Ascencio PGY2 Disclaimer: Even though this this note was dictated by speech recognition and even though it was carefully revised there may still be minor errors in sodder due to voice recognition software. Medication Administration(s) Medication Administration History Discontinued Medications Sodium Chloride (Ns) 500 mls @ 999 mls/hr IV .Q31M ONE Stop: 10/12/24 11:29 Last Infusion: 10/12/24 12:46 Dose: Infused Documented By: Admin: 10/12/24 11:26 Dose: 999 mls/hr Documented By: HUEY Metronidazole (Flagyl 500 Mg Iv) 500 mg in 100 mls @ 100 mls/hr IV X1 ONE Stop: 10/12/24 12:37 Last Admin: 10/12/24 13:56 Dose: 100 mls/hr Documented By: SAIRA Ciprofloxacin/Dextrose (Cipro Ivpb) 400 mg in 200 mls @ 200 mls/hr IV X1 ONE Stop: 10/12/24 12:38 Last Infusion: 10/12/24 13:51 Dose: Infused Documented By: Admin: 10/12/24 12:10 Dose: 200 mls/hr Documented By: HUEY Sodium Chloride (Ns) 1,000 mls @ 999 mls/hr IV .Q1H1M ONE Stop: 10/12/24 12:40 Last Infusion: 10/12/24 13:51 Dose: Infused Documented By: Admin: 10/12/24 12:09 Dose: 999 mls/hr Documented By: HUEY
--- NOTE | 2024-10-12 11:50 | XR_ITS ---
Examination: CT abdomen and pelvis without contrast. Coronal 3-D reconstructions. Sagittal 2-D reconstructions. Date and time of exam:October 12 thousand 25 1211 hours, comparison June 12, 2024 INDICATIONS: Lower abdominal pain beginning 5 days ago, history bladder tumor and kidney tumors CTDI: vol (mGy): 8.16 DLP: (mGycm): 512 Technique: Axial images of the abdomen have been obtained, 3 mm slice thickness Intravenous contrast material has not been administered. Low dose protocols were performed. One or more of the following dose reduction techniques were used; automated exposure control, adjustment of the mA and/or KV according to patient size, use of iterative reconstruction technique. Findings: No focal liver or splenic lesions No gallstones No pancreatic mass Absent right kidney IVC filter Normal appendix A few small bowel loops of mildly fluid distended Colonic diverticulosis, acute diverticulitis descending colon without peridiverticular abscess Bladder intact Normal seminal vesicles Intact urinary bladder Advanced degenerative disc disease of the lower 2 lumbar levels IMPRESSION: Acute diverticulitis distal descending colon, no peridiverticular abscess
[2024-10-12] MEDS: SODIUM CHLORIDE 0.9% 1000 ML 1,000 ML 999 ML IV (12:09)
[2024-10-12] MEDS: CIPROFLOXACIN/D5w 400 MG IVPB 400 MG/200 ML BAG 200 MG IV (12:10)
[2024-10-12 12:15] LABS: INR 1.8 (0.9-1.3); Partial Thromboplastin Time 35.0 Seconds (22.0-36.0); Prothrombin Time 19.3 Seconds (9.0-12.2)
[2024-10-12 13:18] LABS: Collection Type, Urine Voided; Squamous Epithelial Cell,Urine 0 /hpf (0-5); WBC,Urine 0 /hpf (0-5)
[2024-10-12 13:25] LABS: Bilirubin,Urine Negative (Negative); Blood,Urine Negative (Negative); Clarity,Urine Clear (Clear/Hazy); Color,Urine Colorless (Lt Yel-Yel); Glucose, Urine Negative (Negative); Ketones,Urine Negative (Negative); Leukocyte Esterase,Urine Negative (Negative); Nitrite,Urine Negative (Negative); PH,Urine 6.0 (5.0-7.0); Protein,Urine Negative (Neg - Trace); RBC,Urine 1 /hpf (0-3); Specific Gravity,Urine 1.008 (1.001-1.035); Urobilinogen,Urine Negative mg/dL (0.0-1.0)
[2024-10-12 13:31] LABS: Amphetamine/Methamp Scrn,U Negative (Negative); Barbiturate Screen,Urine Negative (Negative); Benzodiazepines Screen,Urine Negative (Negative); Benzoylecgonine Screen, Ur Negative (Negative); Fentanyl Screen,Urine Negative (Negative); Opiate Screen,Urine Negative (Negative); THC Screen,Urine Negative (Negative)
[2024-10-12 13:43] LABS: B-Type Natriuretic Peptide 369 pg/mL (0-100)
[2024-10-12 13:52] LABS: Alanine Aminotransferase 11 U/L (10-49); Albumin, Serum 4.1 gm/dL (3.4-4.8); Albumin/Globulin Ratio 1.6 (1.2-2.2); Alkaline Phosphatase 99 U/L (46-116); Anion Gap 11 (7-16); Aspartate Amino Transferase 20 U/L (0-34); BUN/Creatinine Ratio 15 Ratio (12-20); Bilirubin,Total 1.2 mg/dL (0.3-1.2); Blood Urea Nitrogen 25 mg/dL (9-23); Calcium 8.8 mg/dL (8.3-10.6); Calcium (Corrected) 8.8 mg/dL (8.5-10.1); Carbon Dioxide 23.5 mMol/L (20.0-31.0); Chloride 101 mMol/L (98-107); Creatinine (Component) 1.7 mg/dL (0.6-1.3); Estimated Creatinine Clearance 29.1 mL/min (>60); Globulin 2.5 gm/dL (2.3-3.5); Glucose 96 mg/dL (74-106); Magnesium 2.0 mg/dL (1.6-2.6); Osmolality,Calculated 274 (275-295); Potassium 4.1 mMol/L (3.4-5.1); Procalcitonin 0.17 ng/ml (0.0-0.49); Sodium 135 mMol/L (136-145); Total Protein 6.6 gm/dL (5.7-8.2); eGFR 38 See Note
[2024-10-12] MEDS: metroNIDAZOLE/NS 500 MG IVPB 500 MG/100 ML BAG 100 MG IV (13:56)
--- NOTE | 2024-10-12 15:52 | ESHP_ITS ---
<Statement entered by Malia Yi MD - 10/13/24 16:29> Patient was seen and examined at bedside. I agree on the assessment and plan on this note as documented by resident Thai Davies PGY1. 89-year-old male with past medical history of bladder cancer, hypothyroidism, status post nephrectomy, coronary artery disease status post CABG, status post pacemaker placement, hypertension, CKD, DVT on warfarin who presented to [facility] with a chief complaint of left lower abdominal pain, CT abdomen pelvis showed colonic diverticulosis with acute diverticulitis of distal descending colon, no evidence of any peridiverticular abscess. Patient admitted to the hospital for IV antibiotics, did have a fever on presentation, did not meet SIRS criteria, incidentally patient was found to be COVID-positive, will continue with isolation precautions, stable on room air. Does have underlying cardiac disorders follows Dr. Dover, for underlying CKD follows Dr. Christianson. Will keep patient n.p.o., bowel rest, IV antibiotics, will advance diet as tolerated, pain management with IV pain medication. Hold antihypertensives for now, resume levothyroxine. Disposition med/tele, will assess in a.m. Case discussed with attending Dr. Gloria Yi MD PGY-2 Documentation for date of: 10/12/24 HPI History of Present Illness History of present illness: Mr. Leon is an 89 year old male with a history of bladder cancer, hypothyroidism, status post right nephrectomy, CAD status post CABG, status post pacemaker placement, hypertension, CKD, DVT (now on warfarin) who presents to [facility] ED on 10/12 for lower left abdominal pain and constipation. The patient was admitted for management of acute diverticulitis. The patient stated that he had sudden onset abdominal pain upon waking up about 5 days ago. The pain was a 10 out of 10 pain that is difficult for the patient to describe and is constant throughout the day. Nothing really seems to have helped with the pain, but eating food seems to make the pain worse. In addition to this abdominal pain, the patient has not had any bowel movements since this pain started. Prior to this constipation, the patient usually has loose stools. Patient did try to take some laxatives, which did help him pass more gas, but did not help too much. Patient tried to go to his primary care physician today, but was told to go to the ER for management. Patient continued to pass gas in the ER, and noted that when patient was receiving a CT scan, the shaking made him pass gas quite a lot. Patient continues to have this 10 out of 10 abdominal pain upon admission. Patient endorses fevers and chills. Patient denies shortness of breath, cough, chest pain, heart palpitations, dysuria, hematuria, and numbness/tingling. ED course: Patient elevated blood pressure of 136/73 and elevated temperature of 100.7F. Relevant labs in ED include a WBC of 5.0, PT 19.3, INR 1.8, BUN 25, creatinine 1.7, GFR 38, BNP 369. Patient tested positive for COVID. Patient had CT abdomen pelvis, which showed colonic diverticulosis and acute diverticulitis of the distal descending colon without peridiverticular abscess. Patient was started on ciprofloxacin and metronidazole. Current Medication(s): - Tramadol 50mg Q6h - Coreg 3.125mg BID - Warfarin 5mg daily - Gabapentin 300mg daily - Levothyroxine 25mcg daily - Atorvastatin 40mg at night Allergies (w/ Reactions): Penicillin (swelling) Family History: - Mother:?noncontributory - Father:? heart problems - Siblings:?brother (multiple cancers) Occupation:?[employer] Alcohol Intake:?Patient denies Tobacco/Vape Use:?Patient denies Other Drug Use:?Patient denies Review of Systems Review of Systems Systems Reviewed: All systems reviewed, normal except as documented Exam Vital Signs Temp Pulse Resp BP Pulse Ox O2 Del Method 98.7 F 72 15 132/83 H 95 Room Air 10/12/24 13:58 10/12/24 13:58 10/12/24 13:58 10/12/24 13:58 10/12/24 13:58 10/12/24 13:58 Narrative Exam Physical Exam: General: Alert, distressed. Skin: Warm, dry, intact, no obvious rash. Head: Normocephalic, atraumatic. Eye: Normal conjunctiva, PERRL. Cardiovascular: Regular rate and rhythm, soft systolic murmur, +S1/S2. Respiratory: Lungs are clear to auscultation, respirations unlabored, no crackles, no wheezing. Gastrointestinal: Soft, LLQ tender to light palpation, distended. No guarding or rebound tenderness. Extremities: No edema, no cyanosis, no clubbing. Neuro: No focal deficits observed. Conversant, moving all extremities. No overt cerebellar signs/incoordination. Psychiatric: Cooperative, appropriate affect. Results: Labs 10/12/24 11:03 10/12/24 13:06 Labs: Short CBC 10/12/24 Range/Units 11:03 WBC 5.0 (3.8-10.6) Thou/mm3 Hgb 14.2 (13.5-16.0) g/dL Hct 41.5 (41.0-53.0) % Plt Count 164 (140-440) Thou/mm3 BMP 10/12/24 13:06 Sodium 135 L Potassium 4.1 Chloride 101 Carbon Dioxide 23.5 BUN 25 H Creatinine 1.7 H Glucose 96 Calcium 8.8 Liver Function 10/12/24 Range/Units 13:06 Total Bilirubin 1.2 (0.3-1.2) mg/dL AST 20 (0-34) U/L ALT 11 (10-49) U/L Alkaline Phosphatase 99 (46-116) U/L Albumin 4.1 (3.4-4.8) gm/dL Urine 10/12/24 Range/Units 13:12 Urine Color Colorless A (Lt Yel-Yel) Urine Clarity Clear (Clear/Hazy) Urine pH 6.0 (5.0-7.0) Ur Specific [place] 1.008 (1.001-1.035) Urine Protein Negative (Neg - Trace) Urine Glucose (UA) Negative (Negative) Quality Measures Quality Measures none Advance care planning discussed with:: patient and spouse Medications Home Medications and Allergies Home Medications ?Medication ?Instructions ?Recorded ?Confirmed ?Type furosemide 20 mg tablet 40 mg PO QDAY 04/19/1910/12 History warfarin 5 mg tablet 5 mg PO QDAY 12/23/22 History levothyroxine 25 mcg tablet 25 mcg PO DAILY 04/21/23 0 10/12/24 History Allergies Allergy/AdvReac Type Severity Reaction Status Date / Time Penicillins Allergy Severe Swelling Verified 10/12/24 10:16 Visit Medications Acetaminophen (Acetaminophen 325 Mg Tablet) 650 mg PO Q6H PRN PRN Reason: Fever >101.5 or pain 1-3 Stop: 11/11/24 15:33 Atorvastatin Calcium (Atorvastatin Calcium 20 Mg Tablet) 40 mg PO HS RADHA Stop: 11/11/24 20:59 Metronidazole (Flagyl 500 Mg Iv) 500 mg in 100 mls @ 200 mls/hr IV Q12H RADHA Stop: 10/19/24 15:59 Ciprofloxacin/Dextrose (Cipro Ivpb) 400 mg in 200 mls @ 200 mls/hr IV Q12HR RADHA Stop: 10/19/24 15:47 Levothyroxine Sodium (Levothyroxine Sodium 25 Mcg Tablet) 25 mcg PO ACBR RADHA Stop: 11/12/24 05:59 Ondansetron HCl (Ondansetron Inj 2 Mg/Ml Inj 2 Ml) 4 mg IVP Q6H PRN; Protocol PRN Reason: NAUSEA OR VOMITING Stop: 11/11/24 15:33 Pharmacy Consult (Pharmacy Renal Dose Adjustment 1 Ea) 1 each XX PRN PRN PRN Reason: CONSULT Stop: 11/11/24 15:50 Warfarin Sodium (Warfarin 5 Mg Tablet) 5 mg PO QDAY RADHA Stop: 10/27/24 08:59 Discontinued Medications Sodium Chloride (Ns) 500 mls @ 999 mls/hr IV .Q31M ONE Stop: 10/12/24 11:29 Last Infusion: 10/12/24 12:46 Dose: Infused Metronidazole (Flagyl 500 Mg Iv) 500 mg in 100 mls @ 100 mls/hr IV X1 ONE Stop: 10/12/24 12:37 Last Infusion: 10/12/24 15:39 Dose: Infused Ciprofloxacin/Dextrose (Cipro Ivpb) 400 mg in 200 mls @ 200 mls/hr IV X1 ONE Stop: 10/12/24 12:38 Last Infusion: 10/12/24 13:51 Dose: Infused Sodium Chloride (Ns) 1,000 mls @ 999 mls/hr IV .Q1H1M ONE Stop: 10/12/24 12:40 Last Infusion: 10/12/24 13:51 Dose: Infused Assessment & Plan Plan Mr. Leon is an 89 year old male with a history of bladder cancer, hypothyroidism, status post right nephrectomy, CAD status post CABG, status post pacemaker placement, hypertension, CKD, DVT (now on warfarin) who presents to [facility] ED on 10/12 for lower left abdominal pain and constipation. The patient was admitted for management of acute diverticulitis. #Acute diverticulitis #LLQ abdominal pain #Constipation Patient had acute onset abdominal pain and left lower quadrant started 5 days ago and has been consistent. This is accompanied with constipation, but the patient has been able to pass gas. CT abdomen pelvis taken in ED was positive for colonic diverticulosis with acute diverticulitis of the distal descending colon without peridiverticular abscess. ? Continue ciprofloxacin and metronidazole IV (10/12--) for 7-day course ? Patient to be kept n.p.o. ? Will transition patient to oral antibiotics to complete 7-day course once patient shows improvement in pain and fever upon discharge ? Blood cultures drawn 10/12, pending results #COVID-positive Patient tested positive for COVID. Patient have a fever of 100.7 on arrival to ED. Patient endorses fevers and chills. ? Patient to be put in airborne precautions for 1 week, with home isolation if discharged earlier than 1 week #CKD stage III #Status post right nephrectomy In ED, the patient had a BUN of 25, creatinine of 1.7, and GFR of 38. These renal function numbers appear to be around the patient's baseline. Patient follows Dr. Christianson for nephrology. ? Avoid nephrotoxic drugs ? Renally dose medications ? Monitor with daily renal panel #History of DVT, now on warfarin Patient has a history of DVT. Patient now takes warfarin 5 mg daily. ? Restarted patient's home warfarin 5 mg daily #Hypothyroidism Patient has been taking levothyroxine at home. ? Restarted patient's home levothyroxine 25 mcg daily ? Ordered TSH and free T4 #History of CAD status post CABG #Status post pacemaker Patient has a history of CAD status post CABG and pacemaker placement. Patient follows Dr. Dover for cardiology. ? Will continue to monitor the patient and consults Dr. Dover if necessary ? Ordered lipid panel & A1c for risk stratification ? Restarted patient's home atorvastatin 40 mg at night #Primary hypertension Patient has a history of hypertension. Patient takes Coreg at home. Patient had relatively stable blood pressure of 136/73 in ED ? Will hold home Coreg for now given stable blood pressure ? Will continue to monitor blood pressure DVT Prophylaxis: Warfarin GI Prophylaxis: N/A Bowel: N/A Diet: NPO [place]: N/A Lines: Peripheral IV Antibiotics: Ciprofloxacin and metronidazole (10/12--) Code Status: FULL Reason for Hospitalization: Acute diverticulitis Other Barriers to Discharge: N/A Patient plan of care was discussed with the senior resident Dr. Yi (PGY-2) and attending physician Dr. Gloria Davies, PGY1 Attending Provider Attestation/Addendum I attest that I was physically present for the evaluation, physical examination, lab and imaging review of the patient with the residents. I discussed the case with the residents and agree with the findings and plans of care as documented above. After examination of the patient and review of the clinical data I feel that this patient needs admission to the hospital for further treatment/evaluation. Patient is an 89 years old male with past medical history of bladder cancer, hypothyroidism, status post right nephrectomy, CAD status post CABG, status post pacemaker placement, hypertension, CKD, DVT who presented to the ED with complaint of left lower abdominal pain and constipation for last 5 days. Patient has been taking some laxatives but did not get enough relief. He has been passing gas. He went to see his PCP today for the abdominal pain who recommended to visit the ED. In the ED, patient had a temperature of 100.7, blood pressure 136/73, rest of the vitals were within normal limits. Lab results show INR of 1.8, creatinine of 1.7, which appears to be around his baseline. CT abdomen/pelvis was done, which showed colonic diverticulosis and acute diverticulitis of distal descending colon without peridiverticular abscess. Patient also tested positive for COVID. We will admit the patient for management of acute diverticulitis and intractable abdominal pain. We will start him on IV ciprofloxacin and metronidazole. We will obtain cultures. Also started on an analgesic regimen for abdominal pain. We will continue warfarin for his DVT, levothyroxine for hypothyroidism. We will hold his antihypertensives for now, plan to resume them if he gets hypertensive. Perla Castro MD
[2024-10-12] MEDS: metroNIDAZOLE/NS 500 MG IVPB 500 MG/100 ML BAG 200 MG IV (21:00)
[2024-10-12] MEDS: MELATONIN 3 MG TABLET 6 MG PO (21:00)
[2024-10-12] MEDS: ATORVASTATIN CALCIUM 20 MG TABLET 40 MG PO (21:01)
[2024-10-13] VITALS (10 sets, daily range): BP systolic 116–146; BP diastolic 68–85; PULSE 62–88; RESP 17–96; TEMP 36.2–36.8; O2SAT 94–96; BMI 26.6
[2024-10-13] MEDS: LEVOTHYROXINE SODIUM 25 MCG TABLET PO (05:18)
[2024-10-13 06:12] LABS: Basophils # (Auto) 0.0 Thou/mm3 (0.0-0.2); Basophils % (Auto) 1 % (0-2.5); Eosinophils # (Auto) 0.1 Thou/mm3 (0.0-0.5); Eosinophils % (Auto) 1 % (0-10); Hematocrit 39.7 % (41.0-53.0); Hemoglobin 13.4 g/dL (13.5-16.0); Immature Granulocytes Auto 0.02 Thou/mm3 (0.00-0.00); Lymphocytes # (Auto) 1.4 Thou/mm3 (1.0-4.8); Lymphocytes % (Auto) 26 % (10-50); Mean Corpuscular HGB Conc 33.8 g/dl (31.0-37.0); Mean Corpuscular Hemoglobin 31.2 pg (25.0-35.0); Mean Corpuscular Volume 93 fL (80-100); Monocytes # (Auto) 1.3 Thou/mm3 (0.0-0.8); Monocytes % (Auto) 24 % (0-12); Neutrophils # (Auto) 2.6 Thou/mm3 (1.8-7.7); Neutrophils % (Auto) 48 % (37-80); Nucleated Red Blood Cell # 0.00 Thou/mm3 (0.00-0.00); Nucleated Red Blood Cell % 0 /100 WBC (0); Platelet Count 140 Thou/mm3 (140-440); RDW Standard Deviation 48.2 fL (35.1-43.9); Red Blood Count 4.29 Miln/mm3 (4.50-5.90); White Blood Count 5.5 Thou/mm3 (3.8-10.6)
[2024-10-13 07:00] LABS: Glucose Estimated Average 134 mg/dL (80-131); Hemoglobin A1C 6.3 % Hgb (4.8-6.0)
[2024-10-13 07:07] LABS: Anion Gap 12 (7-16); BUN/Creatinine Ratio 13 Ratio (12-20); Blood Urea Nitrogen 24 mg/dL (9-23); Calcium 8.6 mg/dL (8.3-10.6); Carbon Dioxide 23.4 mMol/L (20.0-31.0); Cardiac Risk Estimate 3.4 RATIO (4.0-6.7); Chloride 102 mMol/L (98-107); Cholesterol 94 mg/dL (132-200); Creatinine (Component) 1.8 mg/dL (0.6-1.3); Estimated Creatinine Clearance 27.4 mL/min (>60); Free T4 (Free Thyroxine) 0.87 ng/dL (0.89-1.76); Glucose 75 mg/dL (74-106); HDL Cholesterol 28 mg/dL (40-60); LDL Cholesterol,Calculated 51 mg/dL (0-130); Magnesium 1.5 mg/dL (1.6-2.6); Osmolality,Calculated 276 (275-295); Phosphorous 4.1 mg/dL (2.4-5.1); Potassium 4.0 mMol/L (3.4-5.1); Sodium 137 mMol/L (136-145); Thyroid Stimulating Hormone 1.81 uIU/mL (0.55-4.78); Triglycerides 77 mg/dL (30-150); eGFR 36 See Note
[2024-10-13] MEDS: Magnesium Sulfate 4 GM Ivpb 4 GM/50 ML BAG IV (09:15)
[2024-10-13] MEDS: metroNIDAZOLE/NS 500 MG IVPB 500 MG/100 ML BAG 200 MG IV ×2 (09:16→20:17)
--- NOTE | 2024-10-13 09:23 | ESPR_ITS ---
<Statement entered by Malia Yi MD - 10/13/24 14:16> Patient was seen and examined at bedside. I agree on the assessment and plan on this note as documented by resident Thai Davies PGY1. Patient had on isolation and contact precautions incidentally found positive for COVID, still complains of left lower quadrant pain , will continue with IV ciprofloxacin and metronidazole, patient was started on clear liquid diet this morning, tolerated well, will advance diet to mechanically altered/semisolid, pending bowel movement, complaining of constipation will monitor with advancing of diet for now. Otherwise underlying renal function stable, creatinine and GFR at baseline, follows Dr. Griggs outpatient, continue to follow outpatient. Patient's home medication warfarin, levothyroxine was resumed, continue. 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 Will continue warfarin. Patient is pending blood cultures, anticipate discharge in a.m. pending bowel movement, resolution of left lower quadrant pain. Case discussed with attending Dr. Blunt. Malia Yi MD PGY-2 Documentation for date of: 10/13/24 Subjective Subjective Interval history: Overnight events: No acute events overnight. Patient was seen and examined at bedside. AM vitals and labs reviewed. The pain in his left lower quadrant abdomen feels better compared to yesterday. He rates it as a 4 out of 10 and at rest, but he lays on his right side because of a 7 out of 10 pain. No other complaints at this time. Magnesium sulfate repleted to maintain magnesium over 2. Diet changed to clear liquid. Possible discharge tomorrow depending on blood culture results. Review of systems otherwise negative except for what is mentioned above. Exam Vital Signs Temp Pulse Resp BP Pulse Ox O2 Del Method 97.2 F 72 19 123/73 96 Room Air 10/13/24 08:00 10/13/24 08:00 10/13/24 08:00 10/13/24 08:00 10/13/24 08:00 10/13/24 08:00 Narrative Exam Physical Exam: General: Alert, no acute distress. Skin: Warm, dry, intact, no obvious rash. Head: Normocephalic, atraumatic. Eye: Normal conjunctiva, PERRL. Cardiovascular: Regular rate and rhythm, soft systolic murmur, +S1/S2. Respiratory: Lungs are clear to auscultation, respirations unlabored, no crackles, no wheezing. Gastrointestinal: Soft, LLQ tender to light palpation, distended. No guarding or rebound tenderness. Extremities: No edema, no cyanosis, no clubbing. 2+ radial pulse bilaterally, 2+ pedal pulse bilaterally. Bandage on left arm. Neuro: No focal deficits observed. Conversant, moving all extremities. No overt cerebellar signs/incoordination. Psychiatric: Cooperative, appropriate affect. Objective Labs 10/13/24 05:07 10/13/24 05:07 Labs: Laboratory Results - last 24 hr 10/12/24 10/12/24 10/12/24 11:03 11:30 13:06 WBC 5.0 RBC 4.56 Hgb 14.2 Hct 41.5 MCV 91 MCH 31.1 MCHC 34.2 RDW Std Deviation 48.0 H Plt Count 164 Neut % (Auto) 64 Lymph % (Auto) 18 Bowman % (Auto) 16 H Eos % (Auto) 1 Baso % (Auto) 1 Neut # (Auto) 3.2 Lymph # (Auto) 0.9 L Bowman # (Auto) 0.8 Eos # (Auto) 0.1 Baso # (Auto) 0.0 Immature Gran # (Auto) 0.01 H Absolute Nucleated RBC 0.00 Immature Gran % 0 Nucleated RBC % 0 PT 19.3 H INR 1.8 H APTT 35.0 Sodium 135 L Potassium 4.1 Chloride 101 Carbon Dioxide 23.5 Anion Gap 11 BUN 25 H Creatinine 1.7 H Estim Creat Clear Calc 29.1 L eGFR 38 L BUN/Creatinine Ratio [address] Glu mg/dL Hemoglobin A1c Calculated Osmolality 274 L Lactic Acid 1.3 Calcium 8.8 Corrected Calcium 8.8 Phosphorus Magnesium 2.0 Total Bilirubin 1.2 AST 20 ALT 11 Alkaline Phosphatase 99 B-Natriuretic Peptide 369 H Total Protein 6.6 Albumin 4.1 Globulin 2.5 Albumin/Globulin Ratio 1.6 Triglycerides Cholesterol LDL Cholesterol, Calc HDL Cholesterol Cholesterol/HDL Ratio Procalcitonin 0.17 TSH Free T4 Ur Collection Type Urine Color Urine Clarity Urine pH Ur Specific [place] Urine Protein Urine Glucose (UA) Urine Ketones Urine Blood Urine Nitrite Urine Bilirubin Urine Urobilinogen (Auto) Ur Leukocyte Esterase Urine RBC Urine WBC Ur Squamous Epith Cells Urine Bacteria Urine Opiates Screen Urine Fentanyl Screen Ur Barbiturates Screen U Amphetamin/Meth Scrn U Benzodiazepines Scrn U Cocaine Metab Screen U Marijuana (THC) Screen 10/12/24 10/13/24 13:12 05:07 WBC 5.5 RBC 4.29 L Hgb 13.4 L Hct 39.7 L MCV 93 MCH 31.2 MCHC 33.8 RDW Std Deviation 48.2 H Plt Count 140 Neut % (Auto) 48 Lymph % (Auto) 26 Bowman % (Auto) 24 H Eos % (Auto) 1 Baso % (Auto) 1 Neut # (Auto) 2.6 Lymph # (Auto) 1.4 Bowman # (Auto) 1.3 H Eos # (Auto) 0.1 Baso # (Auto) 0.0 Immature Gran # (Auto) 0.02 H Absolute Nucleated RBC 0.00 Immature Gran % 0 Nucleated RBC % 0 PT INR APTT Sodium 137 Potassium 4.0 Chloride 102 Carbon Dioxide 23.4 Anion Gap 12 BUN 24 H Creatinine 1.8 H Estim Creat Clear Calc 27.4 L eGFR 36 L BUN/Creatinine Ratio [address] Glu mg/dL 134 H Hemoglobin A1c 6.3 H Calculated Osmolality 276 Lactic Acid Calcium 8.6 Corrected Calcium Phosphorus 4.1 Magnesium 1.5 L Total Bilirubin AST ALT Alkaline Phosphatase B-Natriuretic Peptide Total Protein Albumin Globulin Albumin/Globulin Ratio Triglycerides 77 Cholesterol 94 L LDL Cholesterol, Calc 51 HDL Cholesterol 28 L Cholesterol/HDL Ratio 3.4 L Procalcitonin TSH 1.81 Free T4 0.87 L Ur Collection Type Voided Urine Color Colorless A Urine Clarity Clear Urine pH 6.0 Ur Specific [place] 1.008 Urine Protein Negative Urine Glucose (UA) Negative Urine Ketones Negative Urine Blood Negative Urine Nitrite Negative Urine Bilirubin Negative Urine Urobilinogen (Auto) Negative Ur Leukocyte Esterase Negative Urine RBC 1 Urine WBC 0 Ur Squamous Epith Cells 0 Urine Bacteria None Urine Opiates Screen Negative Urine Fentanyl Screen Negative Ur Barbiturates Screen Negative U Amphetamin/Meth Scrn Negative U Benzodiazepines Scrn Negative U Cocaine Metab Screen Negative U Marijuana (THC) Screen Negative Quality Measures Quality Measures none Advance care planning discussed with:: patient Assessment & Plan Assessment Current Active Medications: Generic Name Dose Route Start Last Admin Trade Name Freq PRN Reason Stop Dose Admin Acetaminophen 650 mg 10/12/24 15:34 Acetaminophen 325 Mg Tablet PO 11/11/24 15:33 Q6H PRN Fever >101.5 or pain 1-3 Atorvastatin Calcium 40 mg 10/12/24 21:00 10/12/24 21:01 Atorvastatin Calcium 20 Mg Tablet PO 11/11/24 20:59 40 mg HS RADHA Administration Metronidazole 500 mg in 100 mls @ 200 mls/hr 10/12/24 22:00 10/13/24 09:16 Flagyl 500 Mg Iv IV 10/19/24 21:59 200 mls/hr Q12HR RADHA Administration Ciprofloxacin/Dextrose 200 mg in 100 mls @ 100 mls/hr 10/13/24 09:00 Cipro Ivpb IV 10/20/24 08:59 Q12HR RADHA Magnesium Sulfate 4 gm in 50 mls @ 12.5 mls/hr 10/13/24 07:59 10/13/24 09:15 Magnesium Sulfate Ivpb IV 10/13/24 11:58 12.5 mls/hr X1 ONE Administration Levothyroxine Sodium 25 mcg 10/13/24 06:00 10/13/24 05:18 Levothyroxine Sodium 25 Mcg Tablet PO 11/12/24 05:59 25 mcg ACBR RADHA Administration Melatonin 6 mg 10/12/24 21:00 10/12/24 21:00 Melatonin 3 Mg Tablet PO 11/11/24 20:59 6 mg HS RADHA Administration Ondansetron HCl 4 mg 10/12/24 15:34 Ondansetron Inj 2 Mg/Ml Inj 2 Ml IVP 11/11/24 15:33 Q6H PRN NAUSEA OR VOMITING Protocol Pharmacy Consult 1 each 10/12/24 15:51 Pharmacy Renal Dose Adjustment 1 Ea XX 11/11/24 15:50 PRN PRN CONSULT Warfarin Sodium 5 mg 10/13/24 12:00 Warfarin 5 Mg Tablet PO 10/27/24 11:59 1200 RADHA Plan Mr. Leon is an 89 year old male with a history of bladder cancer, hypothyroidism, status post right nephrectomy, CAD status post CABG, status post pacemaker placement, hypertension, CKD, DVT (now on warfarin) who presents to [facility] ED on 10/12 for lower left abdominal pain and constipation. The patient was admitted for management of acute diverticulitis. #Acute diverticulitis #Constipation Patient had acute onset abdominal pain and left lower quadrant started 5 days ago and has been consistent. This is accompanied with constipation, but the patient has been able to pass gas. CT abdomen pelvis taken in ED was positive for colonic diverticulosis with acute diverticulitis of the distal descending colon without peridiverticular abscess. ? Continue ciprofloxacin and metronidazole IV (10/12--) for 7-day course ? Patient on clear liquid diet per GI recommendations ? Will transition patient to oral antibiotics to complete 7-day course once patient shows improvement in pain and fever upon discharge ? Blood cultures drawn 10/12, pending results #COVID-positive Patient tested positive for COVID. Patient have a fever of 100.7 on arrival to ED. Patient endorses fevers and chills. ? Patient to be put in airborne precautions for 1 week, with home isolation if discharged earlier than 1 week #CKD stage III #Status post right nephrectomy In ED, the patient had a BUN of 25, creatinine of 1.7, and GFR of 38. These renal function numbers appear to be around the patient's baseline. Patient follows Dr. Christianson for nephrology. ? Avoid nephrotoxic drugs ? Renally dose medications ? Monitor with daily renal panel #History of DVT, now on warfarin, failed Eliquis and Plavix Patient has a history of DVT. Patient now takes warfarin 5 mg daily. ? Restarted patient's home warfarin 5 mg daily #Hypothyroidism Patient has been taking levothyroxine at home. ? Restarted patient's home levothyroxine 25 mcg daily ? Ordered TSH and free T4, resulted 10/13 as 1.81 and 0.87 respectively #History of CAD status post CABG #Status post pacemaker Patient has a history of CAD status post CABG and pacemaker placement. Patient follows Dr. Dover for cardiology. ? Will continue to monitor the patient and consults Dr. oDver if necessary ? Ordered lipid panel & A1c for risk stratification, resulted on 10/13 as triglycerides 77, cholesterol 94, goal LDL 51, HDL 28, and A1c 6.3 ? Restarted patient's home atorvastatin 40 mg at night ? Repleted magnesium on 10/13 to maintain magnesium above 2.0 #Primary hypertension Patient has a history of hypertension. Patient takes Coreg at home. Patient had relatively stable blood pressure of 136/73 in ED ? Will hold home Coreg for now given stable blood pressure ? Will continue to monitor blood pressure DVT Prophylaxis: Warfarin GI Prophylaxis: N/A Bowel: N/A Diet: Clear liquids [place]: N/A Lines: Peripheral IV Antibiotics: Ciprofloxacin and metronidazole (10/12--) Code Status: FULL Reason for Hospitalization: Acute diverticulitis Other Barriers to Discharge: Pending cultures Patient plan of care was discussed with the senior resident Dr. Yi (PGY-2) and attending physician Dr. Blunt. Thai Davies, PGY1 Attending Provider Attestation/Addendum Rocael, [place] Blunt, DO, attest that I was physically present for the fairchild portions of the service and evaluated the patient with the resident and I reviewed and discussed the case with the resident and agree with the resident's findings and plans of care as documented above Patient seen and eval this a.m. He states that he is feeling much better today, but continues to have some pain in his left lower quadrant of his abdomen. He states that it feels as though there is a knot. He states that he had watery diarrhea at home, but no blood noted. He had had a colonoscopy several years ago, but cannot recall the results. He denies any family or personal history of colon cancer. He has never had history of diverticulitis either. Patient is currently tolerating clear liquid diet. He has no further episodes of nausea or vomiting. Will advance diet as tolerated. Patient has required minimal pain control at this time. Will follow-up blood cultures. It appears the patient had failed subcu heparin and NOACs in the past in the setting of multiple VTE's, thus requires warfarin. Will continue current management. If pain is improved and patient tolerates diet, anticipate discharge within the next 24 hours. Patient had fever yesterday on presentation. Advised patient that he will need a colonoscopy in 6 to 8 weeks following resolution of his symptoms. Patient states that he is able to follow-up with his PCP to obtain the referral.
[2024-10-13] MEDS: CIPROFLOXACIN/D5w 200 MG IVPB 200 MG/100 ML BAG 100 MG IV ×2 (10:38→20:17)
[2024-10-13] MEDS: WARFARIN 5 MG TABLET PO (11:37)
--- NOTE | 2024-10-13 12:00 | PC.SS ---
Patient is 89 year old male presenting to the hospital for acute diverticulitis. [employer] placed phone call to Henna to confirm demographic information. Patient confirmed that she is next of kin and lives with at home. Patient was at bedside with patient. Patient is retired, does not use DME, and PCP is Dr. Fazal Carrillo last appointment was 10/12/24. Patient confirmed pharmacy of choice is [facility] on [address]. Once medically cleared patient would like to return home with . Patient?s will provide transportation. PCP: Dr. aCrrillo Next of kin: Henna Leon ph: [phone] D/C: home
--- NOTE | 2024-10-13 13:54 | PC.SS ---
Addendum entered by MAYRA Wong 10/13/24 15:10: Rounding note: possible d/c tomorrow if patient has BM. Original Note: SS update: possible d/c, on IV antibiotics.
--- NOTE | 2024-10-13 15:48 | PC.PT ---
PT eval only. Patient is xI with bed mobility, transfers, and ambulation. Patient is safe to ambulate to the bathroom and in his room with no AD and no staff. RN made aware.
[2024-10-13] MEDS: MELATONIN 3 MG TABLET 6 MG PO (20:17)
[2024-10-13] MEDS: ATORVASTATIN CALCIUM 20 MG TABLET 40 MG PO (20:17)
[2024-10-14] VITALS: BP 137/80; PULSE 76; RESP 20; TEMP 37.2; O2SAT 95
[2024-10-14 04:00] VITALS: BP 138/79; PULSE 84; RESP 20; TEMP 37; O2SAT 94
[2024-10-14] MEDS: LEVOTHYROXINE SODIUM 25 MCG TABLET PO (05:46)
[2024-10-14 06:08] LABS: Basophils # (Auto) 0.0 Thou/mm3 (0.0-0.2); Basophils % (Auto) 1 % (0-2.5); Eosinophils # (Auto) 0.2 Thou/mm3 (0.0-0.5); Eosinophils % (Auto) 4 % (0-10); Hematocrit 42.4 % (41.0-53.0); Hemoglobin 14.1 g/dL (13.5-16.0); Immature Granulocytes Auto 0.00 Thou/mm3 (0.00-0.00); Lymphocytes # (Auto) 1.2 Thou/mm3 (1.0-4.8); Lymphocytes % (Auto) 31 % (10-50); Mean Corpuscular HGB Conc 33.3 g/dl (31.0-37.0); Mean Corpuscular Hemoglobin 30.3 pg (25.0-35.0); Mean Corpuscular Volume 91 fL (80-100); Monocytes # (Auto) 0.8 Thou/mm3 (0.0-0.8); Monocytes % (Auto) 21 % (0-12); Neutrophils # (Auto) 1.8 Thou/mm3 (1.8-7.7); Neutrophils % (Auto) 44 % (37-80); Nucleated Red Blood Cell # 0.00 Thou/mm3 (0.00-0.00); Nucleated Red Blood Cell % 0 /100 WBC (0); Platelet Count 136 Thou/mm3 (140-440); RDW Standard Deviation 46.6 fL (35.1-43.9); Red Blood Count 4.66 Miln/mm3 (4.50-5.90); White Blood Count 4.0 Thou/mm3 (3.8-10.6)
[2024-10-14 06:31] LABS: Anion Gap 12 (7-16); BUN/Creatinine Ratio 17 Ratio (12-20); Blood Urea Nitrogen 25 mg/dL (9-23); Calcium 9.3 mg/dL (8.3-10.6); Carbon Dioxide 24.4 mMol/L (20.0-31.0); Chloride 102 mMol/L (98-107); Creatinine (Component) 1.5 mg/dL (0.6-1.3); Estimated Creatinine Clearance 32.9 mL/min (>60); Glucose 92 mg/dL (74-106); Magnesium 2.2 mg/dL (1.6-2.6); Osmolality,Calculated 280 (275-295); Phosphorous 3.3 mg/dL (2.4-5.1); Potassium 4.5 mMol/L (3.4-5.1); Sodium 138 mMol/L (136-145); eGFR 45 See Note
[2024-10-14 08:00] VITALS: BP 131/87; PULSE 65; RESP 18; TEMP 36.1; O2SAT 94
[2024-10-14] MEDS: metroNIDAZOLE/NS 500 MG IVPB 500 MG/100 ML BAG 200 MG IV (08:36)
[2024-10-14] MEDS: CIPROFLOXACIN/D5w 200 MG IVPB 200 MG/100 ML BAG 100 MG IV (08:36)
[2024-10-14 09:02] LABS: INR 1.9 (0.9-1.3); Prothrombin Time 19.8 Seconds (9.0-12.2)
--- NOTE | 2024-10-14 10:29 | PC.NURSE ---
Per MD sims hold off on pts DC until med recc order is entered and reviewed with pt.
[2024-10-14 11:14] VITALS: PULSE 71; RESP 20; RESP 97
[2024-10-14 12:00] VITALS: PULSE 68
--- NOTE | 2024-10-14 12:35 | PC.NURSE ---
MD TEAM ROUNDING ON PT NOW. PER MD LYNN CONTINUE WITH DC PT IS CLEAR TO DC AT THIS TIME.
--- NOTE | 2024-10-14 13:00 | PC.NURSE ---
WOUND CARE PROVIDED PRIOR TO DC WELL MEDICAL SUPPLIES NEED FOR WOUND CARE FOR AT LEAST 1 WK. DEMONSTRATED/ AND EDUCATION PROVIDED AT BEDSIDE ON WOUND CARE TO PT AND .
--- NOTE | 2024-10-14 15:49 | PD.RESPRO ---
Documentation for date of: 10/14/24 Subjective Subjective Interval history: Summary: This patient is an 89-year-old male with a history of bladder cancer, hypothyroidism, s/p right nephrectomy, CAD s/p CABG, s/p pacemaker placement, hypertension, CKD, DVT who presents to [facility] ED on 10/12 for lower left abdominal pain and constipation. The patient was admitted for management of acute diverticulitis. The patient had sudden onset abdominal pain on 10/07 upon waking up which was constant throughout the day. The patient tried to see his PCP, but due to running a fever and abdominal pain, the patient was told to go to the ED instead. In the ED, the patient had elevated blood pressure of 136/73 and elevated temperature of 100.7 F. Patient tested positive for COVID in the ED. CT of abdomen pelvis showed colonic diverticulosis and acute diverticulitis of distal descending colon without peridiverticular abscess. Patient was started on ciprofloxacin and metronidazole on 10/12, which was continued when patient was admitted to floors. Patient was put n.p.o. overnight, to which the patient feels that it improved his pain. Patient was advanced to clear liquid diet, which he tolerated well. On 10/14, the patient was alert and oriented to self, place, time, and situation. Patient had a bowel movement on 10/14, with labs and vitals stable. Blood cultures show no growth after 24 hours. Patient medically cleared for discharge to home with self-care on 10/14. Oral antibiotics were prescribed to complete 7-day course of antibiotics. Imaging: CT abdomen pelvis 10/12/2024: Acute diverticulitis distal descending colon, no peridiverticular abscess Discharge Recommendations: - Please take all medications as prescribed - Continue oral ciprofloxacin and metronidazole for 7 more days, end date 10/20 - Please follow up with your PCP within one week of discharge - If your symptoms worsen, please seek immediate medical attention and return to your nearest emergency room. - If you do not have a PCP, you may follow up at [facility] at [address] [place] [address] [place] [id number], Hospital Diagnoses: Exam Vital Signs Temp Pulse Resp BP Pulse Ox O2 Del Method 96.9 F 68 20 131/87 H 94 L Room Air 10/14/24 08:00 10/14/24 12:00 10/14/24 11:14 10/14/24 08:00 10/14/24 08:00 10/14/24 08:00 Objective Labs 10/14/24 05:35 10/14/24 05:35 Labs: Laboratory Results - last 24 hr 10/14/24 10/14/24 05:35 08:25 WBC 4.0 RBC 4.66 Hgb 14.1 Hct 42.4 MCV 91 MCH 30.3 MCHC 33.3 RDW Std Deviation 46.6 H Plt Count 136 L Neut % (Auto) 44 Lymph % (Auto) 31 [place] % (Auto) 21 H Eos % (Auto) 4 Baso % (Auto) 1 Neut # (Auto) 1.8 Lymph # (Auto) 1.2 [place] # (Auto) 0.8 Eos # (Auto) 0.2 Baso # (Auto) 0.0 Immature Gran # (Auto) 0.00 Absolute Nucleated RBC 0.00 Immature Gran % 0 Nucleated RBC % 0 PT 19.8 H INR 1.9 H Sodium 138 Potassium 4.5 D Chloride 102 Carbon Dioxide 24.4 Anion Gap 12 BUN 25 H Creatinine 1.5 H Estim Creat Clear Calc 32.9 L eGFR 45 L BUN/Creatinine Ratio 17 Glucose 92 Calculated Osmolality 280 Calcium 9.3 Phosphorus 3.3 Magnesium 2.2 Quality Measures Quality Measures none
--- NOTE | 2024-10-14 15:54 | ESDS_ITS ---
<Statement entered by Song Stacy MD - 10/19/24 14:36> I reviewed above note and agree with findings and plans. I have also personally examined the patient with medicine team and went over assessment and plan with medical team including biomedical engineering internship and resident physician. <Statement entered by Malia Yi MD - 10/15/24 12:55> Patient was seen and examined by me personally. I have reviewed the below documentation by the team resident and agree with its findings. Discharge plan was discussed with the attending, Dr. Tawanna Yi MD Internal Medicine, PGY-2 Planned Discharge Date 10/14/24 DS: Providers Provider Date of admission: 10/12/24 16:05 Primary care physician: Fazal Carrillo MD Admitting Provider: Perla Castro MD Attending Provider on Admission: Africa Blunt DO Consults: 10/12/24 16:13 PT [Referral Physical Therapy] Routine Comment: Does patient need home health? Physician Instructions: 10/12/24 16:40 Referral Wound Care Stat Comment: 10/13/24 10:13 Referral Nutritional Services Routine Comment: Large skin tear 10/13/24 10:14 Referral OP Wound Healing Dept Routine Comment: Left forearm degloving from fall Attending Provider on DC: Song Stacy MD Discharging Provider: Song Stacy MD Anticipated date of discharge: 10/14/24 DS: Diagnosis Problem List Completed Was Problem List Reviewed/Reconciled?: Yes Hospital Course Hospital Course Hospital course: Summary: This patient is an 89-year-old male with a history of bladder cancer, hypothyroidism, s/p right nephrectomy, CAD s/p CABG, s/p pacemaker placement, hypertension, CKD, DVT who presents to [facility] ED on 10/12 for lower left abdominal pain and constipation. The patient was admitted for management of acute diverticulitis. The patient had sudden onset abdominal pain on 10/07 upon waking up which was constant throughout the day. Patient was sent from PCP due to fever and severe abdominal pain In the ED, the patient had elevated blood pressure, elevated temperature of 100.7, and found to be COVID positive. CT of abdomen pelvis showed colonic diverticulosis and acute diverticulitis of distal descending colon without peridiverticular abscess. Patient was started on ciprofloxacin and metronidazole on 10/12 with improvement of symptoms. Patient tolerated clear liquid diet. On discharge, patient had a bowel movement, labs and vitals stable, and patient is feeling ready to go home. Blood cultures show no growth after 48 hours. Patient medically cleared for discharge to home with self-care. Oral antibiotics were prescribed to complete total 10 day course of antibiotics with 7 more days to complete outpatient. Imaging: CT abdomen pelvis 10/12/2024: Acute diverticulitis distal descending colon, no peridiverticular abscess Discharge Recommendations: - Please take all medications as prescribed - Continue oral ciprofloxacin and metronidazole for 7 more days, end date 10/20 - START atorvastatin 40 mg daily - Please follow up with your PCP within one week of discharge - If your symptoms worsen, please seek immediate medical attention and return to your nearest emergency room. 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 Stacy and senior resident Dr Yi PGY-2 Destiny Lopez, DO Internal Medicine PGY-1 Status at Discharge Cognitive/behavioral status at discharge: Stable Functional status at discharge: independent ambulation Overall status at discharge: patient is back to baseline Time Spent with Patient Time attestation: Total time spent providing and/or coordinating discharge services: Time spent: Greater than 30 minutes Exam Vital Signs Temp Pulse Resp BP Pulse Ox O2 Del Method 96.9 F 68 20 131/87 H 94 L Room Air 10/14/24 08:00 10/14/24 12:00 10/14/24 11:14 10/14/24 08:00 10/14/24 08:00 10/14/24 08:00 Narrative Exam GENERAL: AOx3, no acute distress HEENT: NC/AT, mucous membranes moist, bilateral sclera anicteric CARDIOVASCULAR: regular rate and rhythm, S1/S2 present, no murmurs appreciated PULMONARY: clear to auscultation bilaterally, no rales/rhonchi/wheezes ABDOMINAL: soft, non-distended, no rebound/guarding, bowel sounds present, +mild tenderness to deep palpation LLQ EXTREMITIES: no peripheral edema SKIN: warm and dry, intact, no rashes NEURO: CN II-XII grossly intact, no focal deficits, alert, following commands Discharge Plan Plan Patient Disposition: HOME (Self Care) Patient condition on transfer: Stable Care Plan Goals: -Complete Antibiotic Treatment with Ciprofloxacin and Flagyl. -Continue all other home Medications -Follow up with your Growth Hacker and Surgery Tech outpatient. -Follow up with PCP in 1-2 Weeks -If you don't have a PCP follow-up in [facility] in 1 to 2 weeks. Call [phone] to make an appointment Address: [facility], [address], [address], [place], [address] -Isolation Precautions for COVID for 7 more days -Return to ED if symptoms return or worsen. Follow up at [facility], [address] [place] [address]. Call [phone] for appointment related to wound on left forearm. Dressing changes at home for left forearm You have a wound that needs special care to heal.? Your body will make the new skin needed to close your wound, but you have to help.? Germs and old skin on the wound have to be removed.? This is done by changing the dressing on the wound as directed by your doctor. Supplies/Equipment (keep all supplies in one place clean and dry) o?? Normal Saline (salt water) solution.? You can make you own by boiling 2 cups of water with ? teaspoon of salt for 10 minutes.? Keep in a glass jar in the refrigerator and make a new batch every day. o?? Clean/Irrigate wound with ?normal saline or wound cleanser o?? Medication for wound: normal saline moistened gauze o?? Primary dressing ? o?? Secondary dressing: dry gauze and gauze roll o?? Tape o?? Gloves ?? Q-tips o?? Small trash bag o?? Other supplies Follow these instructions: 1.??? Wash your hands with soap and water. 2.??? Gather all your supplies and place on a clean towel or paper towel. 3.??? Put on gloves.- 4.??? Remove all of the old dressing (including gauze packing if any) and put in the trash bag. 5.??? Take off the gloves and put in trash bag. 6.??? If not using gloves wash your hands again or put on new gloves. 7.??? Irrigate wound with Normal saline. ?Place gauze in trash bag. 8. Left forearm: cleanse gently with Anasept spray and pat dry. Apply thin layer of therahoney gel and cover with adaptic gauze and gauze roll. Change once a day and as needed. If active bleeding occurs, apply tight dressing and return to MD or ER. ? Notify primary doctor or return to Emergency Room if any of the following: ? Fever above 100.6? F. ? Increased pain ? Increase swelling ? Red streaks around your wound ? Drainage becomes foul smelling or changes color ? The wound is larger or deeper ? The wound looks dried out or dark ? Bleeding that does not stop with holding pressure Prescriptions/Referrals Prescriptions/Med Rec: New atorvastatin 40 mg tablet 40 mg PO HS 30 Days Qty: 0 0RF ciprofloxacin HCl 500 mg tablet 500 mg PO BID 6 Days Qty: 12 0RF metronidazole 500 mg tablet 500 mg PO Q6H 6 Days Qty: 24 0RF Continued warfarin 5 mg tablet 5 mg PO QDAY furosemide 20 mg tablet 40 mg PO QDAY levothyroxine 25 mcg tablet 25 mcg PO DAILY Referrals: Fazal Carrillo MD [Primary Care Provider] - Patient/Caregiver Discharge Instructions Discharge Activity: activity as tolerated Education Materials: Diverticulosis Diverticulitis, ED Diverticulitis Print Language: Kazakh Stand Alone Forms: Veronica Award Info., Patient Portal Info Letter Discharge Order Discharge Orders: Discharge (Routine); Ordered 10/14/24 Ordered By: Hipolito Camacho Quality Discharge Quality Measures VTE prophylaxis
== END 2024-10-14 13:08 | disposition home or self-care (01) | DRG 391 ==
LOC: SERX 14:45 → SERHOLD 16:10 → S3NX 17:17
PROVIDERS: Admitting Provider Student in an Organized Health Care Education/Training Program; PCP Family Medicine; Visit Provider Internal Medicine
DX: K57.32 Diverticulitis of large intestine without perforation or abscess without bleeding (principal); U07.1 COVID-19; Z95.0 Presence of cardiac pacemaker; Z90.5 Acquired absence of kidney; Z85.51 Personal history of malignant neoplasm of bladder; Z95.1 Presence of aortocoronary bypass graft; I25.10 Atherosclerotic heart disease of native coronary artery without angina pectoris; E03.9 Hypothyroidism, unspecified; I12.9 Hypertensive chronic kidney disease with stage 1 through stage 4 chronic kidney disease, or unspecified chronic kidney disease; N40.0 Benign prostatic hyperplasia without lower urinary tract symptoms; N18.30 Chronic kidney disease, stage 3 unspecified; I73.9 Peripheral vascular disease, unspecified; K59.00 Constipation, unspecified; Z86.718 Personal history of other venous thrombosis and embolism; Z79.01 Long term (current) use of anticoagulants; Z88.0 Allergy status to penicillin; Z78.9 Other specified health status; Z79.890 Hormone replacement therapy
CPT/HCPCS: 36415; 71045; 74018; 74176; 80048; 80053; 80061; 80307; 81001; 83036; 83605; 83735; 83880; 84100; 84145; 84439; 84443; 85025; 85610; 85730; 87040; 87400; 87811; 93005; 93225; 94762; 96361; 96365; 96366; 97161; 99284; J0744; J3475; J3490; J7030; J7999; A9270; J1836

== ENCOUNTER 2024-11-10 21:35 | Emergency (ER) | payer MEDICARE, BC, SELFPAY ==
[2024-11-10 21:53] VITALS: BP 128/88; PULSE 108; RESP 18; TEMP 36.6; O2SAT 98; BMI 27.3
--- NOTE | 2024-11-10 22:14 | EDNOTE_ITS ---
ED SOB =RME/HPI General Chief Complaint: Chest Pain Stated Complaint: TIGHTNESS IN THROAT, SOB Time Seen by Provider: 11/10/24 22:14 Arrival date/time: 11/10/24 21:35 RME / HPI RME / HPI Narrative: See MDM for Dr. Collazo's HPI documentation. Related Data Home Medications ?Medication ?Instructions ?Recorded ?Confirmed furosemide 20 mg tablet 40 mg PO QDAY 04/19/1910/12 warfarin 5 mg tablet 5 mg PO QDAY 12/23/22 levothyroxine 25 mcg tablet 25 mcg PO DAILY 04/21/23 0 10/12/24 Previous Rx's ?Medication ?Instructions ?Recorded albuterol sulfate 90 mcg/actuation 2 puff inhalation Q 6H PRN 11/11/24 aerosol inhaler shortness of breath or wheez ing #1 unit azithromycin 500 mg tablet 500 mg PO QDAY 3 days #3 ta bs 11/11/24 (Zithromax TRI-SHAYE) cefdinir 300 mg capsule 300 mg PO BID #14 caps 11/11 prednisone 50 mg tablet 50 mg PO QDAY #3 tabs Allergies Allergy/AdvReac Type Severity Reaction Status Date / Time Penicillins Allergy Severe Swelling Verified 10/12/24 10:16 Review of Systems Review of Systems Systems Reviewed: All systems reviewed, normal except as documented ED Exam Narrative Physical exam: See MDM for Dr. Collazo's physical exam documentation. Course Course Course Narrative: CXR is ordered for determining the etiology of shortness of breath. Quality Measures none Orders Category Date Time Status Bedside COVID-19 Antigen Test NOW Care 11/10/24 22:16 Completed Bedside Influenza A&B Antigen Test NOW Care 11/10/24 22:16 Completed EKG (ED ONLY) *Do not use* NOW Care 11/10/24 22:18 Completed Saline [Insert IV] NOW Care 11/10/24 22:16 Completed EKG (ED Only) Stat Exams 11/10/24 22:18 Ordered XR chest 1V portable Stat Exams 11/10/24 22:18 Completed BNP [B-Type Natriuretic Peptide] Stat Lab 11/10/24 21:26 Completed Bilirubin,Direct Stat Lab 11/10/24 21:26 Completed Blood Culture (Lab) Stat Lab 11/10/24 21:20 Results CBC Stat Lab 11/10/24 21:26 Completed CMP [Comprehensive Metabolic Panel] Stat Lab 11/10/24 21:26 Completed CRP [C-Reactive Protein] Stat Lab 11/10/24 21:26 Completed D-Dimer Stat Lab 11/10/24 21:26 Completed ESR [Sed Rate (ESR)] Stat Lab 11/10/24 21:26 Completed Lactate (Lactic Acid) Stat Lab 11/10/24 21:26 Completed Magnesium Stat Lab 11/10/24 21:26 Completed PT [Prothrombin Time with INR] Stat Lab 11/10/24 21:26 Completed PTT [Partial Thromboplastin Time] Stat Lab 11/10/24 21:26 Completed Procalcitonin Stat Lab 11/10/24 21: Completed TSH [Thyroid Stimulating Hormone] Stat Lab 11/10/24 21:26 Completed Troponin I Stat Lab 11/10/24 21:26 Completed Troponin I Stat Lab 11/11/24 00:33 Completed UA, C/S IF [Urinalysis, C/S if Indicated] Stat Lab 11/10/24 23:04 Completed Azithromycin Po [Zithromax PO] Med 11/10/24 23:13 Discontinued 500 mg PO X1 ONE MethylPREDNISolone.* [SoluMEDROL Inj] Med 11/10/24 22:16 Discontinued 125 mg IVP X1 ONE Ondansetron Inj [Zofran Inj] Med 11/10/24 22:16 Discontinued 4 mg IVP X1 ONE Sodium Chloride 0.9% 1000 ml [Ns] 1,000 ml Med 11/10/24 22:16 Discontinued IV 999 mls/hr cefTRIAXone/D5w 1gm IV premix [Rocephin/D5w 1gm IV Med 11/10/24 23:13 Discontinued premix] 1 gm in 50 ml IV X1 Vital Signs Vital signs: Vital Signs Temperature 97.8 F 11/10/24 21:53 Pulse Rate 108 H 11/10/24 21:53 Respiratory Rate 18 11/10/24 21:53 Blood Pressure 128/88 H 11/10/24 21:53 Pulse Oximetry (%) 98 11/10/24 21:53 Oxygen Delivery Method Room Air 11/10/24 21:53 Shortness of Breath / Dyspnea MDM Narrative MDM Narrative:: This section includes all my notes and documentations, including HPI, PE, and ED course. Carson Collazo MD HPI: 89yo male with a history of CAD s/p CABG on Warfarin, s/p pacemaker placement, HTN here with neck tightness/heaviness and shortness of breath since yesterday, worse for a few hours. Patient is able to swallow his saliva. No other complaints reported. ROS: All negative except as documented in HPI. Physical Exam: General: Alert and oriented. Cough noted. Eyes: Conjunctivae and lids clear. ENT: No nasal congestion. Neck: Supple. Heart: RRR. Lungs: No respiratory distress. Good air movement with rhonchi. Abdomen: Soft and nontender. Normal bowel sounds. No distension. No rebound or guarding. Back: No CVA tenderness. Skin: Warm and dry. Neuro: Alert and oriented X 3. I reviewed all diagnostic test results. My interpretation of the EKG is paced rhythm. My interpretation of the chest x-ray is infiltrates. Blood tests unremarkable. UA unremarkable. COVID/Influenza negative. At this point, diagnoses include: Pneumonia Treatment here included: Azithromycin IV fluid Rocephin Solumedrol Zofran Significant improvement noted. Recommended outpatient management. Based on my best medical judgment, made decision no further evaluation or treatment indicated at this time. Patient understands and agrees to the discharge instructions customized and printed, see below. Discharge instructions from Dr. Collazo: --After extensive evaluation, your diagnosis is Pneumonia. --No physical exertion for 3 days to help rest the lungs. ?No smoking or exposure to smoking or pets or dust or humidity. --Zithromax and cefdinir to kill the germs causing the Pneumonia. --Prednisone to help decrease the swelling in the airways. --Albuterol 2 puffs every 4-6 hours as needed for cough or shortness of breath. --See a private doctor on 11/14/2024 for recheck and further care. Ask to review all test results and official radiology reports, to make sure you receive all necessary follow-ups and monitoring. To make sure there is no serious underlying heart condition, ask to help you get more tests for your heart that cannot be done here in the ER. Such as Holter Monitor (cardiac monitoring at home from a day to even a month), heart stress test (on treadmill or with medication), echocardiogram (imaging of your heart structures), heart catherization (checking for blockages in your heart arteries), and a referral to see a Polishing Machine Operator. Ask for help until you are completely better. --Seek immediate medical care with worsening or with any concerns. Carson Collazo MD Patient data External records reviewed:: [facility] previous records Clinical information provided by:: patient Social determinants that could affect healthcare access:: none Patient has the following chronic illnesses:: bladder cancer, hypothyroidism, s/p right nephrectomy, CAD s/p CABG, s/p pacemaker placement, hypertension, CKD How is presenting disease/condition affected by chronic disease/condition?: exacerbated by Evaluation data The following diagnostics were reviewed and interpreted by me:: lab results, radiology exam(s) and EKG tracing(s) (My interpretation of the EKG: Paced rhythm (109 bpm). Carson Collazo MD) Lab and/or radiology exams considered but not ordered:: none Interpretation Summary: I reviewed all diagnostic test results. My interpretation of the EKG is paced rhythm. My interpretation of the chest x-ray is infiltrates. Blood tests unremarkable. UA unremarkable. COVID/Influenza negative. Medications / Prescriptions Medications or Prescriptions considered but not ordered:: none Medication administrations:: Medication Administration History Discontinued Medications Azithromycin (Azithromycin 250 Mg Tablet) 500 mg PO X1 ONE Stop: 11/10/24 23:14 Last Admin: 11/10/24 23:49 Dose: 500 mg Documented By: ELLEN Sodium Chloride (Ns) 1,000 mls @ 999 mls/hr IV .Q1H1M ONE Stop: 11/10/24 23:16 Last Infusion: 11/11/24 00:16 Dose: Infused Documented By: Admin: 11/10/24 23:14 Dose: 999 mls/hr Documented By: CVL Ceftriaxone Sodium/Dextrose (Rocephin/D5w 1gm Iv Premix) 1 gm in 50 mls @ 100 mls/hr IV X1 ONE Stop: 11/10/24 23:42 Last Infusion: 11/11/24 00:20 Dose: Infused Documented By: Admin: 11/10/24 23:49 Dose: 100 mls/hr Documented By: ELLEN Methylprednisolone Sodium Succinate (Methylprednisolone Sod Succ 62.5 Mg/Ml 2ml Vial) 125 mg IVP X1 ONE Stop: 11/10/24 22:17 Last Admin: 11/10/24 23:16 Dose: 125 mg Documented By: CVL Ondansetron HCl (Ondansetron Inj 2 Mg/Ml Inj 2 Ml) 4 mg IVP X1 ONE; Protocol Stop: 11/10/24 22:17 Last Admin: 11/10/24 23:15 Dose: 4 mg Documented By: CVL Azithromycin, IV fluid, Rocephin, Solumedrol, Zofran Consultations Consultation(s) initiated? (list below): No Diagnosis Shortness of Breath Differential Diagnosis: acute exacerbation of chronic obstr uctive airways disease, congestive heart failure, community acquired pneumonia, asthma with exacerbation and pulmonary embolism Most likely diagnosis given after review of the tests above:: Pneumonia Admission Indicated Admission indicated?: not indicated Explain why admission is indicated or not indicated:: With significant improvement and no condition needing emergent intervention, there was no indication for admission. Admission Request Was there a request for admission?: No Disposition Plan Disposition Plan: Discharge Discharge Attestation Discharge Attestation: The patient and all family members were given an opportunity to ask questions and understood the discharge instructions. Discharge instructions specifically effects, indications for sooner follow up or return to the emergency department, and the expected course of current diagnosis. Patient condition: Stable Discharge Plan Plan Patient Disposition: HOME (Self Care) Prescriptions/Referrals Prescriptions/Med Rec: New prednisone 50 mg tablet 50 mg PO QDAY Qty: 3 0RF albuterol sulfate 90 mcg/actuation HFA aerosol inhaler 2 puff inhalation Q6H PRN (Reason: shortness of breath or wheezing) Qty: 1 0RF cefdinir 300 mg capsule 300 mg PO BID Qty: 14 0RF azithromycin [Zithromax TRI-SHAYE] 500 mg tablet 500 mg PO QDAY 3 Days Qty: 3 0RF No Action warfarin 5 mg tablet 5 mg PO QDAY furosemide 20 mg tablet 40 mg PO QDAY levothyroxine 25 mcg tablet 25 mcg PO DAILY Problem List Clinical Impression: Pneumonia Patient/Caregiver Discharge Instructions Discharge Activity: activity as tolerated Education Materials: ED Pneumonia (Adult) Additional Instructions: Discharge instructions from Dr. Collazo: --After extensive evaluation, your diagnosis is Pneumonia. --No physical exertion for 3 days to help rest the lungs. ?No smoking or exposure to smoking or pets or dust or humidity. --Zithromax and cefdinir to kill the germs causing the Pneumonia. --Prednisone to help decrease the swelling in the airways. --Albuterol 2 puffs every 4-6 hours as needed for cough or shortness of breath. --See a private doctor on 11/14/2024 for recheck and further care. Ask to review all test results and official radiology reports, to make sure you receive all necessary follow-ups and monitoring. To make sure there is no serious underlying heart condition, ask to help you get more tests for your heart that cannot be done here in the ER. Such as Holter Monitor (cardiac monitoring at home from a day to even a month), heart stress test (on treadmill or with medication), echocardiogram (imaging of your heart structures), heart catherization (checking for blockages in your heart arteries), and a referral to see a Polishing Machine Operator. Ask for help until you are completely better. --Seek immediate medical care with worsening or with any concerns. Print Language: Sammarinese Stand Alone Forms: Veronica Award Info., Patient Portal Info Letter
--- NOTE | 2024-11-10 22:18 | EKG_ITS ---
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
--- NOTE | 2024-11-10 22:18 | XR_ITS ---
Examination: PA chest single view Technique: Upright PA chest single view Date and time: November 10, 2024 1025 hrs., Comparison October 12, 2024 Indications: Shortness breath chest pain weakness today. Findings: Opacity in the right lower lung zone Mild prominence left clavicle Cardiac leads stable position. Mildly prominent right paratracheal region again noted No pulmonary edema Impression: Right mid and lower lung zone pneumonia
[2024-11-10 22:41] LABS: Lactate (Lactic Acid) 1.7 mMol/L (0.4-2.0)
[2024-11-10 22:45] LABS: Sed Rate (ESR) 28 mm/hr (0-20)
[2024-11-10 22:47] LABS: Basophils # (Auto) 0.0 Thou/mm3 (0.0-0.2); Basophils % (Auto) 1 % (0-2.5); Eosinophils # (Auto) 0.4 Thou/mm3 (0.0-0.5); Eosinophils % (Auto) 7 % (0-10); Hematocrit 42.8 % (41.0-53.0); Hemoglobin 14.4 g/dL (13.5-16.0); Immature Granulocytes Auto 0.01 Thou/mm3 (0.00-0.00); Lymphocytes # (Auto) 2.4 Thou/mm3 (1.0-4.8); Lymphocytes % (Auto) 41 % (10-50); Mean Corpuscular HGB Conc 33.6 g/dl (31.0-37.0); Mean Corpuscular Hemoglobin 31.1 pg (25.0-35.0); Mean Corpuscular Volume 92 fL (80-100); Monocytes # (Auto) 0.7 Thou/mm3 (0.0-0.8); Monocytes % (Auto) 11 % (0-12); Neutrophils # (Auto) 2.4 Thou/mm3 (1.8-7.7); Neutrophils % (Auto) 40 % (37-80); Nucleated Red Blood Cell # 0.00 Thou/mm3 (0.00-0.00); Nucleated Red Blood Cell % 0 /100 WBC (0); Platelet Count 174 Thou/mm3 (140-440); RDW Standard Deviation 49.0 fL (35.1-43.9); Red Blood Count 4.63 Miln/mm3 (4.50-5.90); White Blood Count 5.9 Thou/mm3 (3.8-10.6)
[2024-11-10 22:58] LABS: B-Type Natriuretic Peptide 327 pg/mL (0-100)
[2024-11-10 23:13] LABS: Partial Thromboplastin Time 44.4 Seconds (22.0-36.0)
[2024-11-10] MEDS: SODIUM CHLORIDE 0.9% 1000 ML 1,000 ML 999 ML IV (23:14)
[2024-11-10] MEDS: ONDANSETRON INJ 2 MG/ML INJ 2 ML 4 MG IVP (23:15)
[2024-11-10] MEDS: MethylPREDNISolone SOD SUCC 62.5 MG/ML 2ML VIAL 125 MG IVP (23:16)
[2024-11-10 23:19] LABS: Prothrombin Time > 63.0 Seconds (9.0-12.2)
[2024-11-10 23:20] LABS: Collection Type, Urine Clean Catch
[2024-11-10 23:28] LABS: Alanine Aminotransferase 23 U/L (10-49); Albumin, Serum 4.4 gm/dL (3.4-4.8); Albumin/Globulin Ratio 1.4 (1.2-2.2); Alkaline Phosphatase 116 U/L (46-116); Anion Gap 9 (7-16); Aspartate Amino Transferase 19 U/L (0-34); BUN/Creatinine Ratio 15 Ratio (12-20); Bilirubin,Direct 0.1 mg/dL (0.0-0.3); Bilirubin,Total 0.4 mg/dL (0.3-1.2); Blood Urea Nitrogen 27 mg/dL (9-23); C-Reactive Protein < 0.5 mg/dL (0.0-0.9); Calcium 10.0 mg/dL (8.3-10.6); Calcium (Corrected) 10.0 mg/dL (8.5-10.1); Carbon Dioxide 28.4 mMol/L (20.0-31.0); Chloride 106 mMol/L (98-107); Creatinine (Component) 1.8 mg/dL (0.6-1.3); Estimated Creatinine Clearance 27.4 mL/min (>60); Globulin 3.1 gm/dL (2.3-3.5); Glucose 118 mg/dL (74-106); Magnesium 2.2 mg/dL (1.6-2.6); Osmolality,Calculated 291 (275-295); Potassium 5.0 mMol/L (3.4-5.1); Procalcitonin 0.09 ng/ml (0.0-0.49); Sodium 143 mMol/L (136-145); Thyroid Stimulating Hormone 5.71 uIU/mL (0.55-4.78); Total Protein 7.5 gm/dL (5.7-8.2); eGFR 36 See Note
[2024-11-10 23:29] LABS: Troponin I 0.051 ng/mL (0.0-0.045)
[2024-11-10 23:34] LABS: Bilirubin,Urine Negative (Negative); Blood,Urine Negative (Negative); Clarity,Urine Clear (Clear/Hazy); Color,Urine Yellow (Lt Yel-Yel); Culture Indicated,Urine Not Indicated; Glucose, Urine Negative (Negative); Ketones,Urine Negative (Negative); Leukocyte Esterase,Urine Negative (Negative); Nitrite,Urine Negative (Negative); PH,Urine 6.0 (5.0-7.0); Protein,Urine Negative (Neg - Trace); RBC,Urine 1 /hpf (0-3); Specific Gravity,Urine 1.026 (1.001-1.035); Squamous Epithelial Cell,Urine 1 /hpf (0-5); Urobilinogen,Urine Negative mg/dL (0.0-1.0); WBC,Urine 1 /hpf (0-5)
[2024-11-10 23:38] LABS: D-Dimer < 250 ng/mL (<600)
--- NOTE | 2024-11-10 23:38 | PC.NURSE ---
Clarified Abt order, pt has allergy to pcn-Per Dr. sj ma to verified -notified Pharmacy
[2024-11-10] MEDS: cefTRIAXone/D5w 1gm IV premix 1 GM/50 ML BAG IV (23:49)
[2024-11-10] MEDS: AZITHROMYCIN 250 MG TABLET 500 MG PO (23:49)
[2024-11-11 00:38] VITALS: BP 137/95; PULSE 102; RESP 20; TEMP 36.4; O2SAT 94
[2024-11-11 02:04] LABS: Troponin I 0.045 ng/mL (0.0-0.045)
[2024-11-11 03:24] VITALS: PULSE 105; RESP 20; O2SAT 97
== END 2024-11-11 03:30 | disposition home or self-care (01) ==
PROVIDERS: Emergency Provider Emergency Medicine
DX: J18.9 Pneumonia, unspecified organism (principal); I25.10 Atherosclerotic heart disease of native coronary artery without angina pectoris; Z95.1 Presence of aortocoronary bypass graft; Z95.0 Presence of cardiac pacemaker; I10 Essential (primary) hypertension
CPT/HCPCS: 36415; 71045; 80053; 81001; 82248; 83605; 83735; 83880; 84145; 84443; 84484; 85025; 85379; 85610; 85652; 85730; 86140; 87040; 87400; 87811; 93005; 96361; 96365; 96375; 99284; J0696; J2405; J2919; J7030; A9270

== ENCOUNTER → 2024-11-22 | Outpatient (CLI) | payer MEDICARE, BC, SELFPAY ==
--- NOTE | 2024-11-22 | XR_ITS ---
Examination:Left hip AP, lateral, AP pelvis 3 views Technique: Hip AP lateral, AP pelvis, 3 views Exam date and time:November 22, 2024 1113 hours INDICATIONS: Patient fell last month with injury to the left hip, left hip pain. 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
== END | disposition home or self-care (01) ==
LOC: CDIM 11:06
PROVIDERS: PCP Family Medicine; Referring Provider Family Medicine; Visit Provider Family Medicine
DX: S79.912A Unspecified injury of left hip, initial encounter (principal); W19.XXXA Unspecified fall, initial encounter
CPT/HCPCS: 73502

== ENCOUNTER 2024-11-27 07:50 | Inpatient (IN) | payer MEDICARE, BC, SELFPAY ==
[2024-11-27] VITALS (10 sets, daily range): BP systolic 122–162; BP diastolic 78–94; PULSE 69–110; RESP 18–22; TEMP 36.2–36.8; O2SAT 95–98; BMI 29.0
--- NOTE | 2024-11-27 07:53 | EKG_ITS ---
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
--- NOTE | 2024-11-27 08:02 | PD.EDRME ---
Rapid Medical Screening Exam RME Arrival date/time: 11/27/24 07:50 Chief Complaint: Chest Pain Time Seen by Provider: 11/27/24 07:52 Vital signs: Vital Signs Temperature 97.6 F 11/27/24 08:00 Pulse Rate 107 H 11/27/24 08:00 Respiratory Rate 18 11/27/24 08:00 Blood Pressure 122/81 11/27/24 08:00 Pulse Oximetry (%) 95 11/27/24 08:00 Oxygen Delivery Method Room Air 11/27/24 08:00 E Narrative: Chest pain radiating to left shoulder/scapula since 0700 this morning. 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 Hx CAD, CABG, pacemaker on coumadin
--- NOTE | 2024-11-27 08:03 | XR_ITS ---
Examination: AP chest single view Technique: AP portable semiupright chest single view Date and time: November 27, 2024, 0822 hrs. Indications: Shortness of breath today. Findings: CABG. Satisfactory position dual-chamber bipolar cardiac leads Normal heart size No pneumonia or pulmonary edema. Moderate osteopenia with old resection distal left clavicle Impression: No active disease.
--- NOTE | 2024-11-27 08:23 | PD.EDCHEST ---
ED Chest Pain RME/HPI General Chief Complaint: Chest Pain Stated Complaint: CHEST PAIN RADIATING DOWN LEFT ARM AT 0720 Time Seen by Provider: 11/27/24 07:52 Arrival date/time: 11/27/24 07:50 Limitations: no limitations RME / HPI RME / HPI narrative: Chest pain radiating to left shoulder/scapula since 0700 this morning. 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 Hx CAD, CABG, pacemaker on coumadin DR. QUICK MAIN ED EVALUATION: 89-year-old male with past medical history of pacemaker placement, right nephrectomy secondary to bladder cancer, triple bypass surgery at 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 He reports associated palpitations. He denies dysuria, hematuria, melena, hematochezia, or abdominal pain. He takes furosemide in addition to his listed medications. Current surety bond agent is Dr. Dover. On arrival, oxygen saturation is 98% on room air. Related Data Home Medications ?Medication ?Instructions ?Recorded ?Confirmed furosemide 20 mg tablet 40 mg PO QDAY 04/19/19 11/27/24 warfarin 5 mg tablet 5 mg PO QDAY 12/23/22 11/27/24 levothyroxine 25 mcg tablet 25 mcg PO DAILY 04/21/23 11/27/24 carvedilol 3.125 mg tablet 3.125 mg PO Q12H 11/27/24 11/27/24 furosemide 40 mg tablet 40 mg PO Q12H 11/27/24 11/27/24 gabapentin 300 mg capsule 300 mg PO Q12H 11/27/24 11/27/24 Previous Rx's ?Medication ?Instructions ?Recorded cefdinir 300 mg capsule 300 mg PO BID #14 caps 11/11/24 Allergies Allergy/AdvReac Type Severity Reaction Status Date / Time Penicillins Allergy Severe Swelling Verified 11/27/24 07:53 Review of Systems Review of Systems Systems Reviewed: All systems reviewed, normal except as documented Past Medical History Past Medical History CARDIAC: Positive Cardiac Disorders, Myocardial Infarction (HOSP 2019 TRIPLE BYPASS), Angina, Coronary Artery Disease, Hypercholesterolemia, Deep Vein Thrombosis and Hypertension GASTROINTESTINAL: Positive Gastrointestinal Disorders, Diverticulitis and Gastroesophageal Reflux Disease GENITOURINARY: Positive Genitourinary Disorders, Renal Disease (BLADDER tumors ,KIDNEY cancer right removed), Neurogenic Bladder, Prostate Cancer (removed) and Benign Prostatic Hyperplasia MUSCULOSKELETAL: Positive Musculoskeletal Disorders and Arthritis ENT: Positive Cataracts (CHA) and Deafness (CHA HEARING AID at home) HEMATOLOGIC: Positive Blood Disorders and Clotting Problems (taking coumadin) OTHER HISTORY: Positive Hospitalization ([place] 4 years ago), Shingles (1999), Falls (01/26 ER), Chicken Pox, Measles, Mumps, Cancer (KIDNEY AND BLADDER) and Prostate Cancer (removed) Family History FAMILY HISTORY: Positive Family Respiratory Disorders, Family Cardiac Disorders, Family Cancer and Family Surgery Surgical History SURGICAL: Positive Open Heart Surgery (triple bypass), Coronary Artery Bypass Graft, Coronary Stent, Cardiac Catheterization, Pacemaker, Angiogram, Ear Surgery, Nephrectomy (Right) and Arthroscopy Social History SMOKING STATUS: Never smoker SECOND HAND EXPOSURE: No SUBSTANCE USE: does not use ALCOHOL: Never ED Exam General Limitations: Present no limitations General appearance: Present alert and in no apparent distress Head Head exam: Present atraumatic, normocephalic and normal inspection Eye Eye exam: Present normal appearance, PERRL and EOMI ENT ENT exam: Present normal exam, normal oropharynx and mucous membranes moist Neck Neck exam: Present normal inspection, full ROM and trachea midline Chest Chest inspection: Present normal inspection and symmetric chest wall rise Respiratory Respiratory exam: Present normal lung sounds bilaterally Cardiovascular Cardiovascular exam: Present normal rhythm, tachycardia and normal heart sounds Abdominal Exam Abdominal exam: Present soft; Absent distention, tenderness, guarding, rebound or rigidity Extremities Exam Extremities exam: Present normal inspection and full ROM Back Exam Back exam: Present normal inspection and full ROM Neurological Exam Neurological exam: Present alert, oriented X3 and CN II-XII intact; Absent motor sensory deficit Psychiatric Psychiatric exam: Present normal affect and normal mood Skin Skin exam: Present warm, dry, intact and normal color Course Quality Measures none Orders Category Date Time Status CT Screening NOW Care 11/27/24 08:[address] Screening NOW Care 11/27/24 13:15 Active EKG (ED ONLY) *Do not use* NOW Care 11/27/24 07:[address] angio chest abdomen pelvis Stat Exams 11/27/24 13:[address] chest abdomen pelvis wo Stat Exams 11/27/24 10:31 Completed CXR [XR chest 1V] Stat Exams 11/27/24 08:03 Completed EKG (ED Only) Stat Exams 11/27/24 07:53 Draft US aorta Stat Exams 11/27/24 10:32 Completed BNP [B-Type Natriuretic Peptide] Stat Lab 11/27/24 08:24 Completed CBC Stat Lab 11/27/24 08:24 Completed CMP [Comprehensive Metabolic Panel] Stat Lab 11/27/24 08:24 Completed Partial Thromboplastin Time Stat Lab 11/27/24 08:24 Completed Prothrombin Time with INR Stat Lab 11/27/24 08:24 Completed Troponin I Stat Lab 11/27/24 08:24 Completed Aspirin Chew Med 11/27/24 08:24 Discontinued 162 mg PO X1 ONE Ringers Lactated 1000 ml [Lactated Ringers] 1,000 ml Med 11/27/24 13:11 Discontinued IV 999 mls/hr Sodium Chloride 0.9% 1000 ml [Ns] 1,000 ml Med 11/27/24 13:14 Active IV 100 mls/hr Vital Signs Vital signs: Vital Signs Temperature 97.6 F 11/27/24 08:00 Pulse Rate 107 H 11/27/24 08:00 Respiratory Rate 18 11/27/24 08:00 Blood Pressure 122/81 11/27/24 08:00 Pulse Oximetry (%) 95 11/27/24 08:00 Oxygen Delivery Method Room Air 11/27/24 08:00 Chest Pain MDM Narrative MDM Narrative:: IAnjali, am scribing for and in the presence of Dr. Quick. Patient is a 89-year-old male is in the emerged from concerns for chest pain. Vital signs and exam as listed. Concern for ACS arrhythmia electrolyte abnormality viral syndrome pulmonary embolus dissection among others. Ordered labs EKG chest x-ray as well as CT angio of the chest abdomen and pelvis. Labs without leukocytosis, hemoglobin 13.2, platelets 127. No acute electrolyte abnormality, patient creatinine is 2.2. Patient has a single kidney. Given this, will discuss with patient whether not he wants to proceed with a CT scan of the chest. At this point patient does not have any chest pain and he is on room air. 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 Troponin is 0.061. BNP is 223. EKG performed today at 7:56 AM, paced rhythm, nonspecific T wave changes, normal intervals, not a cardiac alert. Chest x-ray unremarkable. Given patient's history will also consult patient's surety bond agent Dr. Dover. 1310: Discussed with patient about his findings on the chest/ abdomen/ pelvis CT without contrast: mild aneurysmal dilatation ascending thoracic aorta. Discussed that is is difficult to know if there is dissection without contrast; he is aware and would be okay getting a CT with contrast despite the risk of worsening renal failure. 1313: Discussed the case with the patient's cupboard builder Dr. Christianson. Given the clinical concern for aortic pathology, he is okay with CT with contrast and also recommends giving a liter of NS and keeping him at 100 cc per hour to mitigate renal failure. I updated patient he is in agreement, understands risk of further renal failure and need for dialysis. 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 Patient also with pulmonary nodules. On reevaluation patient hemodynamically stable no distress continues to be asymptomatic. Consulted hospitalist service for admission. Patient data External records reviewed:: [facility] previous records Clinical information provided by:: patient and spouse Social determinants that could affect healthcare access:: none Patient has the following chronic illnesses:: pacemaker placement, right nephrectomy secondary to bladder cancer, triple bypass surgery at [facility], DVT (has an IVC filter and on warfarin), hypothyroidism (on levothyroxine), hyperlipidemia (on atorvastatin), and penicillin allergy How is presenting disease/condition affected by chronic disease/condition?: exacerbated by Evaluation data The following diagnostics were reviewed and interpreted by me:: lab results, radiology exam(s) and EKG tracing(s) (My interpretation: EKG performed at 0756 hours, paced rhythm, rate 107, QT 540, no cardiac alert) Lab and/or radiology exams considered but not ordered:: none Interpretation Summary: Procedure(s): XR chest 1V Accession Number(s): [id number] cc: Michael Bar MD; Ralph Calderon PA-C; Fazal Carrillo MD~ Examination: AP chest single view Technique: AP portable semiupright chest single view Date and time: November 27, 2024, 0822 hrs. Indications: Shortness of breath today. Findings: CABG. Satisfactory position dual-chamber bipolar cardiac leads Normal heart size No pneumonia or pulmonary edema. Moderate osteopenia with old resection distal left clavicle Impression: No active disease. Dictated By: Michael Bar MD Procedure(s): CT chest abdomen pelvis wo Accession Number(s): [id number] cc: Michael Bar MD; Ada Quick MD; Fazal Carrillo MD~ Examination: CT chest, without intravenous contrast. CT abdomen, without intravenous contrast. CT pelvis, without intravenous contrast. 2-D sagittal and coronal reconstructions. 3-D reconstructions. Date and time of exam:November 27, 2024, 1134 hrs., Comparison October 12, 2024 Indications: Onset chest pain abdominal pain beginning this morning, history renal cell carcinoma post nephrectomy on the right 4 years ago CTDI vol (mgy) 8.9 DLP (MGycm)620 Technique: Multiple CT images, 3.0 mm slice thickness, obtained chest, abdomen, pelvis, with the high-resolution 64 slice scanner.. Sagittal and coronal 2-D reconstructions are obtained. 3-D reconstructions Low dose protocols were performed. One or more of the following dose reduction techniques were used; automated exposure control, adjustment of the mA and/or KV according to patient size, use of iterative reconstruction technique. Findings: Mild aneurysmal dilatation ascending thoracic aorta, AP dimension 4 cm Pulmonary artery segments are not enlarged Heavy calcification left anterior descending coronary artery Mild enlargement left ventricle Transvenous dual-chamber bipolar cardiac leads satisfactory position Atelectasis in the left upper lobe and right base No lobar pneumonia or pulmonary edema Mildly dilated bronchi in the lower lobe on the right Prominent osteopenia Moderate diffuse thoracic degenerative disc disease CABG 5 mm pulmonary nodule medial right lower lobe image 124 4 mm pulmonary nodule right middle lobe image 186 No visualized liver or splenic lesion No gallstones No pancreatic or adrenal mass IVC filter satisfactory position No left renal mass or calculi Absent right kidney No tumor mass in the right renal fossa Normal appendix No abdominal or pelvic lymphadenopathy Colonic diverticulosis, no definite diverticulitis Urinary bladder intact No significant prostatomegaly Advanced degenerative disc disease L4-L5 Impression: Mild aneurysmal dilatation ascending thoracic aorta. Heavy calcification left anterior descending coronary artery No pneumonia or pulmonary edema Noncalcified pulmonary nodules as above, suspicious for early pulmonary nodular metastatic disease, recommend 6 month follow-up CT chest without contrast No tumor mass in the right renal fossa, no interval abdominal or pelvic lymphadenopathy Normal appendix Colonic diverticulosis, no diverticulitis Dictated By: Michael Bar MD Procedure(s): US aorta Accession Number(s): [id number] cc: Michael Bar MD; Ada Quick MD; Fazal Carrillo MD~ Examination: Ultrasound abdominal aorta Technique: Grayscale sonographic images abdominal aorta Date and time: November 27, 2024, 1040 hrs. Indications: Abdominal pain this week Findings: Proximal aorta 2.5 cm mid aorta 2.1 cm distal aorta 2.1 cm Right iliac 2.4 cm left iliac 2.2 cm Impression: Negative for abdominal aortic aneurysm dilatation Enlarged common iliac arteries, clinical correlation advised Dictated By: Michael Bar MD Procedure(s): CT angio chest abdomen pelvis Accession Number(s): [id number] cc: Michael Bar MD; Ada Quick MD; Fazal Carrillo MD~ Examination: CTA chest, with intravenous contrast. CTA abdomen, with intravenous contrast. CTA pelvis, with intravenous contrast. 2-D sagittal and coronal reconstructions. 3-D reconstructions. Date and time of exam: November 27, 2024, 14[address] hrs[address] chest abdomen pelvis without contrast 11/27/2024 1133 hrs. CTDI vol (mgy) 23.2 DLP (MGycm) 783 Technique: Multiple CTA images, 2.0 mm slice thickness, obtained chest, abdomen, pelvis, with the high-resolution 64 slice scanner. 50 cc Isovue-300 is administered intravenously. Sagittal and coronal 2-D reconstructions are obtained. 3-D reconstructions, angiographic images are obtained. 3-D postprocessing, including vascular maximum intensity projections. Low dose protocols were performed. One or more of the following dose reduction techniques were used; automated exposure control, adjustment of the mA and/or KV according to patient size, use of iterative reconstruction technique. Findings: Mild aneurysmal dilatation ascending thoracic aorta 4.0 cm There is no diagnostic visualization of the pulmonary arteries Significant calcification left anterior descending coronary artery Mild enlargement cardiac contour Atelectasis in the left upper lobe and right lower lobe Mildly dilated bronchi in the right lower lobe 5 mm pulmonary nodule medial right lower lobe, 4 mm pulmonary nodule right middle lobe No visualized liver or splenic lesion No gallstones IVC filter primarily below the left renal vein Absent right kidney No left renal mass No bowel obstruction Normal appendix Colonic diverticulosis, axial image 247 mild diverticulitis distal descending colon Urinary bladder intact No significant prostatomegaly Advanced degenerative disc disease L4-L5 Impression: Mild aneurysmal dilatation ascending thoracic aorta, no thoracic aortic dissection Contrast bolus timing error, no diagnostic opacification of the pulmonary arteries Noncalcified pulmonary nodules as above, follow-up needed Absent right kidney, no tumor mass in the right renal fossa Suspicious for mild acute diverticulitis distal descending colon, axial image 247, no peridiverticular abscess Dictated By: Michael Bar MD Medications / Prescriptions Medications or Prescriptions considered but not ordered:: none Medication administrations:: Medication Administration History Sodium Chloride (Ns) 1,000 mls @ 100 mls/hr IV .Q10H RADHA Stop: 12/27/24 13:13 Last Admin: 11/27/24 13:44 Dose: 100 mls/hr Documented By: RAMO Discontinued Medications Aspirin (Aspirin 81 Mg Chew) 162 mg PO X1 ONE Stop: 11/27/24 08:25 Last Admin: 11/27/24 08:34 Dose: 162 mg Documented By: RAMO Lactated Ringer's (Lactated Ringers) 1,000 mls @ 999 mls/hr IV .Q1H1M ONE Stop: 11/27/24 14:11 Last Admin: 11/27/24 13:43 Dose: 999 mls/hr Documented By: RAMO see above if any Consultations Consultation(s) initiated? (list below): Yes Consultation #1 (Physician, Specialty, Details): Discussed test HPI, PMHx, lab, radiology results and/or management with surety bond agent Dr. Dover. Will consult an admission to the hospitalist. Recommends admit for observation and will consult. Time: 10:37 Consultation #2 (Physician, Specialty, Details): Discussed the case with the patient's cupboard builder Dr. Christianson. Given the clinical concern and risk, he is okay with CT with contrast and also recommends giving a liter of NS and keeping him at 100 cc per hour to mitigate renal failure. Time: 13:13 Consultation #3 (Physician, Specialty, Details): Discussed test HPI, PMHx, lab, radiology results and/or management with resident working with the hospitalist. Will admit for further evaluation and management. Accepts patient for admission. Time: 15:51 Diagnosis Chest Pain Differential Diagnosis: other (Acute coronary syndrome, aortic dissection, and arrhythmia-related chest pain.) Most likely diagnosis given after review of the tests above:: Aneurysm, thoracic aortic Chest pain Elevated troponin Admission Indicated Admission indicated?: indicated Admission Request Was there a request for admission?: Yes Admission Attestation Admission request attestation: Discussed case with [] from Hospitalist service regarding admission. Discussed patients ED course, exam findings, labs, and radiology results. The Hospitalist [agrees,declines] to accept the patient for admission. Disposition Plan Disposition Plan: Admit Critical Care Time Critical Care Time Critical Care Time: Yes Total Critical Care Time (min.): 60 Attestation: ?I spent 60 minutes of critical care time with this patient not including reportable procedures. There was an acute impairment of an organ system with a high probability of imminent or life threatening deterioration in the patient's condition. Interventions and changes required in the course of therapy are located in the chart. Time involved was spent in direct patient care, reviewing ancillary data, old records, consulting with decision makers, EMS, other doctors, giving orders and documenting. Discharge Plan Plan Patient Disposition: Admit Acute Care w/in Hospital Prescriptions/Referrals Prescriptions/Med Rec: No Action warfarin 5 mg tablet 5 mg PO QDAY furosemide 20 mg tablet 40 mg PO QDAY levothyroxine 25 mcg tablet 25 mcg PO DAILY cefdinir 300 mg capsule 300 mg PO BID Qty: 14 0RF gabapentin 300 mg capsule 300 mg PO Q12H furosemide 40 mg tablet 40 mg PO Q12H carvedilol 3.125 mg tablet 3.125 mg PO Q12H Referrals: Fazal Carrillo MD [Primary Care Provider, Family Practice] - In 1 week Problem List Clinical Impression: Elevated troponin, Aneurysm, thoracic aortic, Chest pain Patient/Caregiver Discharge Instructions Print Language: Lithuanian Stand Alone Forms: Veronica Award Info., Patient Portal Info Letter
[2024-11-27] MEDS: ASPIRIN 81 MG CHEW 162 MG PO (08:34)
[2024-11-27 08:48] LABS: Basophils # (Auto) 0.1 Thou/mm3 (0.0-0.2); Basophils % (Auto) 1 % (0-2.5); Eosinophils # (Auto) 0.4 Thou/mm3 (0.0-0.5); Eosinophils % (Auto) 7 % (0-10); Hematocrit 40.2 % (41.0-53.0); Hemoglobin 13.2 g/dL (13.5-16.0); Immature Granulocytes Auto 0.01 Thou/mm3 (0.00-0.00); Lymphocytes # (Auto) 2.1 Thou/mm3 (1.0-4.8); Lymphocytes % (Auto) 34 % (10-50); Mean Corpuscular HGB Conc 32.8 g/dl (31.0-37.0); Mean Corpuscular Hemoglobin 30.8 pg (25.0-35.0); Mean Corpuscular Volume 94 fL (80-100); Monocytes # (Auto) 0.6 Thou/mm3 (0.0-0.8); Monocytes % (Auto) 10 % (0-12); Neutrophils # (Auto) 3.0 Thou/mm3 (1.8-7.7); Neutrophils % (Auto) 49 % (37-80); Nucleated Red Blood Cell # 0.00 Thou/mm3 (0.00-0.00); Nucleated Red Blood Cell % 0 /100 WBC (0); Platelet Count 127 Thou/mm3 (140-440); RDW Standard Deviation 51.6 fL (35.1-43.9); Red Blood Count 4.29 Miln/mm3 (4.50-5.90); White Blood Count 6.2 Thou/mm3 (3.8-10.6)
[2024-11-27 09:23] LABS: B-Type Natriuretic Peptide 223 pg/mL (0-100)
[2024-11-27 09:31] LABS: Alanine Aminotransferase 21 U/L (10-49); Albumin, Serum 4.1 gm/dL (3.4-4.8); Albumin/Globulin Ratio 1.8 (1.2-2.2); Alkaline Phosphatase 95 U/L (46-116); Anion Gap 10 (7-16); Aspartate Amino Transferase 26 U/L (0-34); BUN/Creatinine Ratio 12 Ratio (12-20); Bilirubin,Total 0.5 mg/dL (0.3-1.2); Blood Urea Nitrogen 26 mg/dL (9-23); Calcium 9.1 mg/dL (8.3-10.6); Calcium (Corrected) 9.1 mg/dL (8.5-10.1); Carbon Dioxide 22.5 mMol/L (20.0-31.0); Chloride 109 mMol/L (98-107); Creatinine (Component) 2.2 mg/dL (0.6-1.3); Estimated Creatinine Clearance 23.3 mL/min (>60); Globulin 2.3 gm/dL (2.3-3.5); Glucose 102 mg/dL (74-106); Osmolality,Calculated 285 (275-295); Potassium 4.4 mMol/L (3.4-5.1); Sodium 141 mMol/L (136-145); Total Protein 6.4 gm/dL (5.7-8.2); eGFR 28 See Note
[2024-11-27 09:55] LABS: Partial Thromboplastin Time 49.0 Seconds (22.0-36.0)
[2024-11-27 09:58] LABS: Prothrombin Time > 63.0 Seconds (9.0-12.2)
[2024-11-27 10:00] LABS: Troponin I 0.061 ng/mL (0.0-0.045)
--- NOTE | 2024-11-27 10:31 | XR_ITS ---
Examination: CT chest, without intravenous contrast. CT abdomen, without intravenous contrast. CT pelvis, without intravenous contrast. 2-D sagittal and coronal reconstructions. 3-D reconstructions. Date and time of exam:November 27, 2024, 1134 hrs., Comparison October 12, 2024 Indications: Onset chest pain abdominal pain beginning this morning, history renal cell carcinoma post nephrectomy on the right 4 years ago CTDI vol (mgy) 8.9 DLP (MGycm)620 Technique: Multiple CT images, 3.0 mm slice thickness, obtained chest, abdomen, pelvis, with the high-resolution 64 slice scanner.. Sagittal and coronal 2-D reconstructions are obtained. 3-D reconstructions Low dose protocols were performed. One or more of the following dose reduction techniques were used; automated exposure control, adjustment of the mA and/or KV according to patient size, use of iterative reconstruction technique. Findings: Mild aneurysmal dilatation ascending thoracic aorta, AP dimension 4 cm Pulmonary artery segments are not enlarged Heavy calcification left anterior descending coronary artery Mild enlargement left ventricle Transvenous dual-chamber bipolar cardiac leads satisfactory position Atelectasis in the left upper lobe and right base No lobar pneumonia or pulmonary edema Mildly dilated bronchi in the lower lobe on the right Prominent osteopenia Moderate diffuse thoracic degenerative disc disease CABG 5 mm pulmonary nodule medial right lower lobe image 124 4 mm pulmonary nodule right middle lobe image 186 No visualized liver or splenic lesion No gallstones No pancreatic or adrenal mass IVC filter satisfactory position No left renal mass or calculi Absent right kidney No tumor mass in the right renal fossa Normal appendix No abdominal or pelvic lymphadenopathy Colonic diverticulosis, no definite diverticulitis Urinary bladder intact No significant prostatomegaly Advanced degenerative disc disease L4-L5 Impression: Mild aneurysmal dilatation ascending thoracic aorta. Heavy calcification left anterior descending coronary artery No pneumonia or pulmonary edema Noncalcified pulmonary nodules as above, suspicious for early pulmonary nodular metastatic disease, recommend 6 month follow-up CT chest without contrast No tumor mass in the right renal fossa, no interval abdominal or pelvic lymphadenopathy Normal appendix Colonic diverticulosis, no diverticulitis
--- NOTE | 2024-11-27 10:32 | XR_ITS ---
Examination: Ultrasound abdominal aorta Technique: Grayscale sonographic images abdominal aorta Date and time: November 27, 2024, 1040 hrs. Indications: Abdominal pain this week Findings: Proximal aorta 2.5 cm mid aorta 2.1 cm distal aorta 2.1 cm Right iliac 2.4 cm left iliac 2.2 cm Impression: Negative for abdominal aortic aneurysm dilatation Enlarged common iliac arteries, clinical correlation advised
--- NOTE | 2024-11-27 10:43 | PC.NURSE ---
PATIENT IN ROOM WITH NO COMPLAINTS AT THIS TIME. PATIENT STATES CHEST PAIN HAS DECREASED AND FEELS MUCH BETTER. PATIENT WITH NO OTHER COMPLAINTS AT THIS TIME.
--- NOTE | 2024-11-27 13:15 | XR_ITS ---
Examination: CTA chest, with intravenous contrast. CTA abdomen, with intravenous contrast. CTA pelvis, with intravenous contrast. 2-D sagittal and coronal reconstructions. 3-D reconstructions. Date and time of exam: November 27, 2024, 14[address] hrs[address] chest abdomen pelvis without contrast 11/27/2024 1133 hrs. CTDI vol (mgy) 23.2 DLP (MGycm) 783 Technique: Multiple CTA images, 2.0 mm slice thickness, obtained chest, abdomen, pelvis, with the high-resolution 64 slice scanner. 50 cc Isovue-300 is administered intravenously. Sagittal and coronal 2-D reconstructions are obtained. 3-D reconstructions, angiographic images are obtained. 3-D postprocessing, including vascular maximum intensity projections. Low dose protocols were performed. One or more of the following dose reduction techniques were used; automated exposure control, adjustment of the mA and/or KV according to patient size, use of iterative reconstruction technique. Findings: Mild aneurysmal dilatation ascending thoracic aorta 4.0 cm There is no diagnostic visualization of the pulmonary arteries Significant calcification left anterior descending coronary artery Mild enlargement cardiac contour Atelectasis in the left upper lobe and right lower lobe Mildly dilated bronchi in the right lower lobe 5 mm pulmonary nodule medial right lower lobe, 4 mm pulmonary nodule right middle lobe No visualized liver or splenic lesion No gallstones IVC filter primarily below the left renal vein Absent right kidney No left renal mass No bowel obstruction Normal appendix Colonic diverticulosis, axial image 247 mild diverticulitis distal descending colon Urinary bladder intact No significant prostatomegaly Advanced degenerative disc disease L4-L5 Impression: Mild aneurysmal dilatation ascending thoracic aorta, no thoracic aortic dissection Contrast bolus timing error, no diagnostic opacification of the pulmonary arteries Noncalcified pulmonary nodules as above, follow-up needed Absent right kidney, no tumor mass in the right renal fossa Suspicious for mild acute diverticulitis distal descending colon, axial image 247, no peridiverticular abscess
[2024-11-27] MEDS: RINGERS LACTATED 1000 ML 1,000 ML 999 ML IV (13:43)
[2024-11-27] MEDS: SODIUM CHLORIDE 0.9% 1000 ML 1,000 ML 100 ML IV (13:44)
--- NOTE | 2024-11-27 18:16 | PD.RESHP ---
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 Patient reported that he was apparently normal till this morning when he was moving lawn, he noted to have chest pain, mainly located in the center, radiating to the inner side of the left arm and to the back. Denies palpitations, fever, cough, shortness of breath, fever, nausea, vomitings, PND, orthopnea. Reported that the pain started around 7 AM in the morning and subsided by the time he came to the ED without any medications but reported that he had severe chest comfort during this entire time and also noted to have tachycardia with heart rate around 107 bpm when checked at home for which she came to the ED. Also reported that he came 2 weeks ago with similar complaints and was discharged from the ED. Patient had recent hospitalization history of further acute diverticulitis and was treated with antibiotics during that hospital stay. ED course: - Vitals at the time of admission are stable except for mild tachycardia with heart rate around 107 bpm. - Labs at the time of admission are significant for hemoglobin 13.2, platelets 127, INR is not measurable, BUN 26, creatinine 2.2, troponin 0.061, BNP 223 - Urine analysis is unremarkable. 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 Denies smoking, alcohol, other illicit drug abuse. Family history: Father at the age of 63 with leukemia Social history: Penicillin Review of Systems Review of Systems Systems Reviewed: All systems reviewed, normal except as documented Exam Vital Signs Temp Pulse Resp BP Pulse Ox O2 Del Method 98.2 F 78 20 137/86 H 97 Room Air 11/27/24 16:39 11/27/24 16:39 11/27/24 16:39 11/27/24 16:39 11/27/24 16:39 11/27/24 16:39 Narrative Exam General: Awake. lying comfortably on the bed. HEENT: Normocephalic, atraumatic, mucous membranes moist. Heart: Regular rate and rhythm, no murmurs. noted pacemaker. Lungs: Clear to auscultation with no wheezing or crackles. Abdomen: Soft, nondistended, nontender, positive bowel sounds. ?No guarding or rebound tenderness. Neurologic: Alert and oriented x3, no gross neurological deficit, and patient able to move all 4 extremities. Extremities: No edema. noted varicosities Skin: No rash or ecchymoses. Results: Labs 11/28/24 05:31 11/28/24 05:31 Labs: Short CBC 11/27/24 Range/Units 08:24 WBC 6.2 (3.8-10.6) Thou/mm3 Hgb 13.2 L (13.5-16.0) g/dL Hct 40.2 L (41.0-53.0) % Plt Count 127 L D (140-440) Thou/mm3 BMP 11/27/24 08:24 Sodium 141 Potassium 4.4 Chloride 109 H Carbon Dioxide 22.5 BUN 26 H Creatinine 2.2 H Glucose 102 Calcium 9.1 Cardiac Enzymes 11/27/24 Range/Units 08:24 Troponin I 0.061 H* (0.0-0.045) ng/mL Liver Function 11/27/24 Range/Units 08:24 Total Bilirubin 0.5 (0.3-1.2) mg/dL AST 26 (0-34) U/L ALT 21 (10-49) U/L Alkaline Phosphatase 95 (46-116) U/L Albumin 4.1 (3.4-4.8) gm/dL Quality Measures Quality Measures none Advance care planning discussed with:: patient and spouse Medications Home Medications and Allergies Home Medications ?Medication ?Instructions ?Recorded ?Confirmed ?Type furosemide 20 mg tablet 40 mg PO QDAY 04/19/19 11/27/24 History warfarin 5 mg tablet 5 mg PO QDAY 12/23/22 11/27/24 History levothyroxine 25 mcg tablet 25 mcg PO DAILY 04/21/23 11/27/24 History carvedilol 3.125 mg tablet 3.125 mg PO Q12H 11/27/24 11/27/24 History furosemide 40 mg tablet 40 mg PO Q12H 11/27/24 11/27/24 History gabapentin 300 mg capsule 300 mg PO Q12H 11/27/24 11/27/24 History Allergies Allergy/AdvReac Type Severity Reaction Status Date / Time Penicillins Allergy Severe Swelling Verified 11/27/24 07:53 Visit Medications Acetaminophen (Acetaminophen 325 Mg Tablet) 650 mg PO Q6H PRN PRN Reason: Fever >101 Stop: 12/27/24 17:32 Atorvastatin Calcium (Atorvastatin Calcium 20 Mg Tablet) 20 mg PO HS RADHA Stop: 12/27/24 20:59 Sodium Chloride (Ns) 1,000 mls @ 100 mls/hr IV .Q10H RADHA Stop: 12/27/24 13:13 Last Admin: 11/27/24 13:44 Dose: 100 mls/hr Lactulose (Lactulose Syrup 20 Gm/30 Ml Udc) 10 gm PO QDAY RADHA; Protocol Stop: 12/28/24 08:59 Ondansetron HCl (Ondansetron Inj 2 Mg/Ml Inj 2 Ml) 4 mg IVP Q6H PRN; Protocol PRN Reason: NAUSEA OR VOMITING Stop: 12/27/24 17:32 Pantoprazole Sodium (Pantoprazole 40 Mg Tablet) 40 mg PO QDAY RADHA Stop: 12/28/24 08:59 Discontinued Medications Aspirin (Aspirin 81 Mg Chew) 162 mg PO X1 ONE Stop: 11/27/24 08:25 Last Admin: 11/27/24 08:34 Dose: 162 mg Lactated Ringer's (Lactated Ringers) 1,000 mls @ 999 mls/hr IV .Q1H1M ONE Stop: 11/27/24 14:11 Last Infusion: 11/27/24 16:44 Dose: Infused Assessment & Plan Plan A 89-year-old male with significant past medical history of bladder cancer, renal carcinoma status post left nephrectomy, 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 # NSTEMI type I versus type II - Patient presented to the hospital with chief complaints of chest pain, mainly located in the center radiating to the inner side of the left arm onto the back of that started 7 AM on the day of admission and subsided by the time he came to the hospital - Denies any other associated complaints except for chest discomfort - Vitals at the time of admission are stable except for mild tachycardia, 107 bpm - EKG done at the time of admission did not show any acute ST-T wave changes except for paced rhythm - Troponin at the time of admission is noted to be 0.061 -On physical examination, CVS S1-S2 present, normal sinus rhythm, no murmurs heard - Patient reported that he underwent coronary angiogram in last couple of years and found to be normal - CTA chest/abdomen/pelvis was done to rule out aortic dissection/pulmonary embolism in view of extensive history of DVT and the imaging rule out dissection pulmonary embolism Plan - Consulted, lead php developer Dr. Dover and will appreciate his recommendation - Currently patient was not started on any blood thinner in view of supratherapeutic INR - Atorvastatin 20 mg at bedtime - Admitted to telemetry - Will continue to monitor troponin # Supratherapeutic INR - Patient is using warfarin 5 mg once daily - INR done during this admission, is not measurable - Patient denies any bleeding manifestations as of now and hemoglobin appears to be stable Plan - Will continue to monitor PT with INR - If patient develops any bleeding manifestations, will give prothrombin complex concentrate versus FFP based on availability -No need of vitamin K for reversal as of now as patient did not develop any bleeding manifestations # CAD s/p CABG # S/p pacemaker # History of heart failure - Patient is using carvedilol, furosemide at home - Resumed carvedilol but furosemide is held as of now in view of elevated creatinine and as patient does not appear to be fluid overloaded # TIMOTHY on CKD - Patient's baseline creatinine is around 1.8, but creatinine at the time of admission is 2.2 - In addition to that, patient received contrast for CTA chest to rule out the aortic dissection - Patient was given 1 L of fluid in the ED Plan - Consulted assistant corporation counsel, Is aware that he recommended to give IV maintenance fluid - Will continue to monitor renal function - Strict I&O's are ordered - Will avoid nephrotoxic medications and renally dose medication # History of urothelial bladder carcinoma # History of left renal carcinoma s/p nephrectomy and ureterectomy - Stable as of now and follows oncologist, Dr. Torres and urologist, Dr. Ferrell - Currently is not on any treatment Hospital Maintenance: Dispo: Tele DVT ppx: SCD GI ppx: Pantoprazole Diet: Cardiac IV lines: peripheral Code status: Full Patient plan of care was discussed with the attending physician, Dr. Dilia Cm, PGY2 Attending Provider Attestation/Addendum I have examined the patient, reviewed labs and imaging findings, discussed the case with the resident(s), and reviewed entered orders. I agree with the plan of care as outlined in this note, with these additional summaries/recommendations: After examination of the patient and review of the clinical data, I feel that this patient needs admission to the hospital for further treatment and evaluation. Patient is a 89-year-old male with a medical history of CAD status post CABG, bradycardia status post pacemaker, hypothyroidism, primary hypertension, CKD, deep vein thrombosis on warfarin, bladder cancer, partial right nephrectomy, and dyslipidemia presents to [facility] emergency department on 11/27/2024 with chief complaint of chest pain. Patient and patient's seen at bedside. He reports he had chest pain this morning radiating to his back and down his left arm not relieved with rest. Patient diagnosed with angina versus NSTEMI. Troponin elevated to 0.061. EKG reviewed which revealed paced rhythm and nonspecific T wave changes. Patient's lead php developer was contacted who recommended admission. Patient will be admitted for angina versus NSTEMI. Patient received loading dose of aspirin. Case discussed with patient's lead php developer and recommend statin therapy and holding aspirin given patient's coagulopathy. Admit to telemetry. As needed morphine or nitro if chest pain returns. Trend troponin every 6 hours or until downtrend. We will hold patient's warfarin for now given on calculable INR and repeat coagulation panel in AM. Per patient's lead php developer she did have a cardiac catheterization approximately 1 year ago. Given patient's presenting symptoms there was concern for aortic dissection. Patient's assistant corporation counsel was contacted who recommended giving IV fluids for CTA of chest. CTA chest obtained which revealed mild aneurysmal dilation ascending thoracic aorta but no dissection. No evidence of PE. Suspicion for mild diverticulitis although patient denies abdominal symptoms at this time. Continue low-dose fluids for CKD. Avoid nephrotoxic agents and renally dose medications. Resume home antihypertensives. Resume home levothyroxine. Repeat hematology and chemistry panel in AM. Patient and family updated on the plan and in agreement. All questions answered to satisfaction. Please see residents note for additional details and management. Dr. Dilia MD
[2024-11-27 18:52] LABS: Troponin I 0.075 ng/mL (0.0-0.045)
--- NOTE | 2024-11-27 20:12 | PC.NURSE ---
pt was getting ns at 100ml/hr. rate was decreased to 75mls/hr based on mar order
[2024-11-27] MEDS: GABAPENTIN 300 MG CAPSULE PO (21:24)
[2024-11-27] MEDS: ATORVASTATIN CALCIUM 20 MG TABLET PO (21:24)
[2024-11-27] MEDS: MELATONIN 3 MG TABLET 6 MG PO (22:46)
[2024-11-28] VITALS (8 sets, daily range): BP systolic 110–134; BP diastolic 69–89; PULSE 65–79; RESP 16–21; TEMP 35.9–36.2; O2SAT 96–99; BMI 29.7
[2024-11-28 00:55] LABS: Troponin I 0.085 ng/mL (0.0-0.045)
[2024-11-28] MEDS: SODIUM CHLORIDE 0.9% 1000 ML 1,000 ML 75 ML IV (02:39)
[2024-11-28] MEDS: LEVOTHYROXINE SODIUM 25 MCG TABLET PO (05:22)
[2024-11-28 05:51] LABS: Basophils # (Auto) 0.0 Thou/mm3 (0.0-0.2); Basophils % (Auto) 1 % (0-2.5); Eosinophils # (Auto) 0.4 Thou/mm3 (0.0-0.5); Eosinophils % (Auto) 5 % (0-10); Hematocrit 37.8 % (41.0-53.0); Hemoglobin 12.3 g/dL (13.5-16.0); Immature Granulocytes Auto 0.02 Thou/mm3 (0.00-0.00); Lymphocytes # (Auto) 2.0 Thou/mm3 (1.0-4.8); Lymphocytes % (Auto) 29 % (10-50); Mean Corpuscular HGB Conc 32.5 g/dl (31.0-37.0); Mean Corpuscular Hemoglobin 30.9 pg (25.0-35.0); Mean Corpuscular Volume 95 fL (80-100); Monocytes # (Auto) 0.7 Thou/mm3 (0.0-0.8); Monocytes % (Auto) 10 % (0-12); Neutrophils # (Auto) 3.8 Thou/mm3 (1.8-7.7); Neutrophils % (Auto) 55 % (37-80); Nucleated Red Blood Cell # 0.00 Thou/mm3 (0.00-0.00); Nucleated Red Blood Cell % 0 /100 WBC (0); Platelet Count 103 Thou/mm3 (140-440); RDW Standard Deviation 52.1 fL (35.1-43.9); Red Blood Count 3.98 Miln/mm3 (4.50-5.90); White Blood Count 7.0 Thou/mm3 (3.8-10.6)
[2024-11-28 06:17] LABS: Alanine Aminotransferase 17 U/L (10-49); Albumin, Serum 3.5 gm/dL (3.4-4.8); Albumin/Globulin Ratio 1.8 (1.2-2.2); Alkaline Phosphatase 85 U/L (46-116); Anion Gap 7 (7-16); Aspartate Amino Transferase 23 U/L (0-34); BUN/Creatinine Ratio 14 Ratio (12-20); Bilirubin,Total 0.5 mg/dL (0.3-1.2); Blood Urea Nitrogen 23 mg/dL (9-23); Calcium 8.6 mg/dL (8.3-10.6); Calcium (Corrected) 9.0 mg/dL (8.5-10.1); Carbon Dioxide 24.4 mMol/L (20.0-31.0); Chloride 112 mMol/L (98-107); Creatinine (Component) 1.7 mg/dL (0.6-1.3); Estimated Creatinine Clearance 30.5 mL/min (>60); Globulin 2.0 gm/dL (2.3-3.5); Glucose 100 mg/dL (74-106); Magnesium 1.7 mg/dL (1.6-2.6); Osmolality,Calculated 288 (275-295); Potassium 4.7 mMol/L (3.4-5.1); Sodium 143 mMol/L (136-145); Total Protein 5.5 gm/dL (5.7-8.2); eGFR 38 See Note
[2024-11-28 06:18] LABS: Troponin I 0.085 ng/mL (0.0-0.045)
[2024-11-28 06:19] LABS: Prothrombin Time > 63.0 Seconds (9.0-12.2)
[2024-11-28] MEDS: PANTOPRAZOLE 40 MG TABLET PO (08:39)
[2024-11-28] MEDS: GABAPENTIN 300 MG CAPSULE PO ×2 (08:39→20:43)
--- NOTE | 2024-11-28 10:23 | ESPR_ITS ---
<Statement entered by Eric Cm MD - 11/29/24 07:31> I have personally seen and examined the patient, agree with residents assessment and plan Patient plan of care was discussed with the attending physician, Dr. Dilia Cm, PGY2 Documentation for date of: 11/28/24 Subjective Subjective Interval history: No acute events overnight. PT and INR continue to be elevated, patient reports that he is taking 5 mg warfarin daily, last checked about 5 weeks ago. Was supposed to be following with PCP for this but has not been able to due to recent hospitalizations. Spoke with Dr. Dover who recommends to hold vitamin K and FFP if no signs of acute bleed. Will continue to monitor hemoglobin and continue to hold anticoagulation. Troponin downtrended, likely NSTEMI II in setting of CKD s/p right nephrectomy. Will continue to hold Lasix, does not appear to be fluid overloaded at this time. Creatinine improved s/p maintenance fluids. Encouraged oral hydration, unclear history of heart failure as no echo on file, no fluid restriction. Strict I's and O's. Exam Vital Signs Temp Pulse Resp BP Pulse Ox O2 Del Method 97.1 F 70 21 H 134/80 H 96 Room Air 11/28/24 08:00 11/28/24 08:39 11/28/24 08:00 11/28/24 08:39 11/28/24 08:00 11/28/24 08:00 Narrative Exam Physical Exam General: Awake and in no acute distress. Conversational and non-toxic appearing. HEENT: Normocephalic, atraumatic, mucous membranes moist. Heart: Regular rate and rhythm, normal S1 and S2, no murmurs appreciated. Pacemaker present. Lungs: Clear to auscultation with no wheezing or crackles. Abdomen: Soft, nondistended, nontender, positive bowel sounds. No guarding or rebound tenderness. Neurologic: Alert and oriented x3, no gross neurological deficit, and patient able to move all 4 extremities. Extremities: No edema. Varicose veins bilaterally. Skin: No rash or ecchymoses. Objective Labs 11/28/24 05:31 11/28/24 05:31 Labs: Laboratory Results - last 24 hr 11/27/24 11/27/24 11/28/24 17:55 23:55 05:31 WBC 7.0 RBC 3.98 L Hgb 12.3 L Hct 37.8 L MCV 95 MCH 30.9 MCHC 32.5 RDW Std Deviation 52.1 H Plt Count 103 L Neut % (Auto) 55 Lymph % (Auto) 29 Garland % (Auto) 10 Eos % (Auto) 5 Baso % (Auto) 1 Neut # (Auto) 3.8 Lymph # (Auto) 2.0 Garland # (Auto) 0.7 Eos # (Auto) 0.4 Baso # (Auto) 0.0 Immature Gran # (Auto) 0.02 H Absolute Nucleated RBC 0.00 Immature Gran % 0 Nucleated RBC % 0 PT > 63.0 H* INR Sodium 143 Potassium 4.7 Chloride 112 H Carbon Dioxide 24.4 Anion Gap 7 BUN 23 Creatinine 1.7 H D Estim Creat Clear Calc 30.5 L eGFR 38 L BUN/Creatinine Ratio 14 Glucose 100 Calculated Osmolality 288 Calcium 8.6 Corrected Calcium 9.0 Magnesium 1.7 Total Bilirubin 0.5 AST 23 ALT 17 Alkaline Phosphatase 85 Troponin I 0.075 H* 0.085 H* 0.085 H* Total Protein 5.5 L Albumin 3.5 D Globulin 2.0 L Albumin/Globulin Ratio 1.8 Quality Measures Quality Measures none Advance care planning discussed with:: patient Assessment & Plan Assessment Current Active Medications: Generic Name Dose Route Start Last Admin Trade Name Freq PRN Reason Stop Dose Admin Acetaminophen 650 mg 11/27/24 17:33 Acetaminophen 325 Mg Tablet PO 12/27/24 17:32 Q6H PRN Fever >101 Atorvastatin Calcium 20 mg 11/27/24 21:00 11/27/24 21:24 Atorvastatin Calcium 20 Mg Tablet PO 12/27/24 20:59 20 mg HS RADHA Administration Carvedilol 3.125 mg 11/27/24 21:00 11/28/24 08:39 Carvedilol 3.125 Mg Tablet PO 12/27/24 20:59 3.125 mg Q12H RADHA Administration Gabapentin 300 mg 11/27/24 21:00 11/28/24 08:39 Gabapentin 300 Mg Capsule PO 12/27/24 20:59 300 mg Q12H RADHA Administration Lactulose 10 gm 11/28/24 09:00 11/28/24 08:42 Lactulose Syrup 20 Gm/30 Ml Udc PO 10/22/25 08:59 Not Given QDAY RADHA Protocol Levothyroxine Sodium 25 mcg 11/28/24 06:00 11/28/24 05:22 Levothyroxine Sodium 25 Mcg Tablet PO 12/28/24 05:59 25 mcg DAILY@0600 [facility] Administration Ondansetron HCl 4 mg 11/27/24 17:33 Ondansetron Inj 2 Mg/Ml Inj 2 Ml IVP 12/27/24 17:32 Q6H PRN NAUSEA OR VOMITING Protocol Pantoprazole Sodium 40 mg 11/28/24 09:00 11/28/24 08:39 Pantoprazole 40 Mg Tablet PO 12/28/24 08:59 40 mg QDAY RADHA Administration Plan Patient is a A 89-year-old male with significant past medical history of bladder cancer, renal carcinoma s/p left nephrectomy (2023), chronic DVT s/p IVC filter placement and on warfarin, CKD, CAD status post CABG, status post pacemaker placement presented on 11/27 with chief complaints of chest pain, admitted for concern of NSTEMI type I versus type II. # NSTEMI type I versus type II # CAD s/p CABG # S/p pacemaker Likely type II > type I in setting of left nephrectomy and TIMOTHY on CKD. On admission, endorsed substernal chest pain, with radiation to left arm and back that started around 7 AM on 11/27. 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 Denied any other associated symptoms such as nausea vomiting. Reported he underwent coronary angiogram in last couple of years, found to be normal. Follows deputy clerk of superior court Dr. Sanchez. Vitals were stable except for mild tachycardia, 107 bpm. EKG done at the time of admission did not show any acute ST-T wave changes except for paced rhythm. Troponin 0.061 > 0.075> 0.085> 0.085> 0.071. CTA chest/abdomen/pelvis showed heavy calcification of LAD. Plan: - Consulted, deputy clerk of superior court Dr. Dover, appreciate recommendations - Holding anticoagulation due to supratherapeutic INR - Atorvastatin 20 mg nightly - Telemetry # Chronic DVT # S/p IVC filter placement (06/29/2023) # Supratherapeutic INR, on warfarin Patient was placed on warfarin 5 mg daily by deputy clerk of superior court Dr. Dover. Reports that he is not checked his INR for at least 5 weeks now. Checks level with PCP Dr. Carrillo. Per Dr. Sanchez, patient was unable to be started on Eliquis due to insurance issues. INR on admission was unquantifiable, severely elevated. No obvious bleeding manifestations at this time, hemoglobin appears to be stable. Plan: - Consulted deputy clerk of superior court Dr. 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 Aortic ultrasound negative for abdominal aortic aneurysm dilatation however noted enlarged common iliac arteries. Home medications include carvedilol 3.125 mg twice daily and furosemide 40 mg daily. No previous echo found. Unknown EF, patient is unaware if he has heart failure. Unknown if patient has bicuspid aortic valve. - Does not qualify for elective repair at this time - Continue home dose carvedilol # TIMOTHY on CKD, likely pre renal, resolved # CKD stage III Creatinine on admission 2.2, baseline creatinine 1.8. Note, patient received contrast for CTA chest to rule out the aortic dissection. S/p 1 L of fluid in the ED with improvement in creatinine. Plan - Consulted recovery analyst Dr. 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 Torres and urologist, Dr. Ferrell. - Currently is not on any treatment - CTM for signs of urinary obstruction #Colonic diverticulosis, mild diverticulitis distal descending Previously admitted 10/13-10/14/[address] of abdomen pelvis showed colonic diverticulosis and acute diverticulitis of distal descending colon without peridiverticular abscess. Patient was discharged with 7 day course of ciprofloxacin and metronidazole. Repeat findings on CT C/A/P on this admission but asymptomatic. Denies abdominal pain or bowel issues at this time. - CTM for symptoms #Bilateral pulmonary nodules #Advanced degenerative disc disease L4-L5 Chronic. CT C/A/P showed 5 mm pulmonary nodule medial right lower lobe, 4 mm pulmonary nodule right since 09/29/22, stable. - No inpatient treatment required, outpatient management Hospital Maintenance: Dispo: Tele DVT ppx: SCD GI ppx: Pantoprazole Diet: Cardiac IV lines: peripheral Code status: Full Patient plan of care was discussed with the resident, Dr. Cm, and attending physician, Dr. Dobbs. Vickie Lopez, PGY-1 Attending Provider Attestation/Addendum I have examined the patient, reviewed labs and imaging findings, discussed the case with the resident(s), and reviewed entered orders. I agree with the plan of care as outlined in this note, with these additional summaries/recommendations: Patient is a 89-year-old male with a medical history of CAD status post CABG, bradycardia status post pacemaker, hypothyroidism, primary hypertension, CKD, deep vein thrombosis on warfarin, bladder cancer, partial right nephrectomy, and dyslipidemia presents to [facility] emergency department on 11/27/2024 with chief complaint of chest pain. Patient and patient?s family seen at bedside. No acute overnight events. Patient currently reports resolution of chest pain. Patient diagnosed with angina versus NSTEMI. Troponin peaked at 0.085. EKG reviewed which revealed paced rhythm and nonspecific T wave changes. Patient's deputy clerk of superior court was contacted who recommended admission. Patient received loading dose of aspirin. Case discussed with patient's deputy clerk of superior court and recommend statin therapy and holding aspirin/anticoagulation given patient's coagulopathy. As needed morphine or nitro if chest pain returns. Patient has coagulopathy with on calculable INR. He reports he takes warfarin 5 mg daily and denies being counseled on diet. Patient's INR appears supratherapeutic for quite some time and unclear why patient is on warfarin versus NOAC. Patient appears to not have received vitamin K for INR in the past and we will follow-up with cardiology for additional recommendations. Per patient's deputy clerk of superior court he did have a cardiac catheterization approximately 1 year ago. Given patient's presenting symptoms there was concern for aortic dissection. Patient's recovery analyst was contacted who recommended giving IV fluids for CTA of chest. CTA chest obtained which revealed mild aneurysmal dilation ascending thoracic aorta but no dissection. No evidence of PE. No suspicion of diverticulitis. Continue low-dose fluids for CKD. Avoid nephrotoxic agents and renally dose medications. Continue home antihypertensives. Continue home levothyroxine. Repeat hematology and chemistry panel in AM. Patient and family updated on the plan and in agreement. All questions answered to satisfaction. Please see residents note for additional details and management. Dr. Dilia MD
--- NOTE | 2024-11-28 11:06 | PC.SS ---
Follow up note: Monitoring I&R, trending troponins, and Dr. Dover is consulting.
--- NOTE | 2024-11-28 12:22 | PD.NEPHCONS ---
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 Patient reported that he was apparently normal till this morning when he was moving lawn, he noted to have chest pain, mainly located in the center, radiating to the inner side of the left arm and to the back. Denies palpitations, fever, cough, shortness of breath, fever, nausea, vomitings. Patient follows with me as outpatient. Patient had a CT scan with contrast. IV hydration given for prophylaxis for contrast-induced nephropathy. cc:: cc: Fidel Dobbs MD Review of Systems Review of Systems Narrative Review of Systems: REVIEW OF SYSTEMS: CONSTITUTIONAL: No weight loss, fever, chills, weakness or fatigue. HEENT: Eyes: No visual loss, blurred vision, double vision or yellow sclerae. Ears, Nose, Throat: No hearing loss, sneezing, congestion, runny nose or sore throat. SKIN: No rash or itching. CARDIOVASCULAR: As HPI RESPIRATORY: No shortness of breath, cough or sputum. GASTROINTESTINAL: No anorexia, nausea, vomiting or diarrhea. No abdominal pain or blood. GENITOURINARY: Burning on urination. . Last menstrual period, NEUROLOGICAL: No headache, dizziness, syncope, paralysis, ataxia, numbness or tingling in the extremities. No change in bowel or bladder control. MUSCULOSKELETAL: No muscle, back pain, joint pain or stiffness. HEMATOLOGIC: No anemia, bleeding or bruising. LYMPHATICS: No enlarged nodes. No history of splenectomy. PSYCHIATRIC: No history of depression or anxiety. ENDOCRINOLOGIC: No reports of sweating, cold or heat intolerance. No polyuria or polydipsia. ALLERGIES: No history of asthma, hives, eczema or rhinitis. Meds Home Medications and Allergies Home Medications ?Medication ?Instructions ?Recorded ?Confirmed ?Type furosemide 20 mg tablet 40 mg PO QDAY 04/19/19 11/27/24 History warfarin 5 mg tablet 5 mg PO QDAY 12/23/22 11/27/24 History levothyroxine 25 mcg tablet 25 mcg PO DAILY 04/21/23 11/27/24 History carvedilol 3.125 mg tablet 3.125 mg PO Q12H 11/27/24 11/27/24 History furosemide 40 mg tablet 40 mg PO Q12H 11/27/24 11/27/24 History gabapentin 300 mg capsule 300 mg PO Q12H 11/27/24 11/27/24 History Allergies Allergy/AdvReac Type Severity Reaction Status Date / Time Penicillins Allergy Severe Swelling Verified 11/27/24 07:53 Exam Vital Signs Temp Pulse Resp BP Pulse Ox O2 Del Method 97.1 F 70 21 H 134/80 H 96 Room Air 11/28/24 08:00 11/28/24 08:39 11/28/24 08:00 11/28/24 08:39 11/28/24 08:00 11/28/24 08:00 Narrative Exam GEN. APPEARANCE: Patient is a well-hydrated, well-nourished in no acute distress. HEENT: Patient is normocephalic, atraumatic, EOMI, PERRLA. Throat is without erythema or exudate. Moist oral mucosa. NECK: Neck is supple, no JVD or bruits. CARDIOVASCULAR: Heart is regular in rhythm. S1 and S2 normal. LUNGS\CHEST: Lungs are clear to auscultation bilaterally. No rales, rhonchi, or wheezing. Normal inspection. ABDOMEN: Abdomen is soft, nontender, with normal bowel sounds. No pulsatile masses. No rebound, rigidity, or guarding. Normal inspection and palpation. EXTREMITIES: Normal inspection and palpation. No edema, clubbing, or cyanosis. SKIN: Skin is warm and dry without rashes. Normal inspection. MUSCULOSKELETAL: No calf tenderness, no joint swellings. NEURO: Patient is awake, alert and oriented into 3. No focal weakness or numbness. PSYCHIATRIC: Normal mood and affect. Denies homicidal or suicidal ideation. GENITOURINARY: No CVA tenderness. No flank masses. No suprapubic tenderness or swelling. LYMPHATICS: No adenopathy noted in the inguinal, axillary, or cervical chains. Results Labs 11/28/24 05:31 11/28/24 05:31 Labs: Short CBC 11/28/24 Range/Units 05:31 WBC 7.0 (3.8-10.6) Thou/mm3 Hgb 12.3 L (13.5-16.0) g/dL Hct 37.8 L (41.0-53.0) % Plt Count 103 L (140-440) Thou/mm3 BMP 11/28/24 05:31 Sodium 143 Potassium 4.7 Chloride 112 H Carbon Dioxide 24.4 BUN 23 Creatinine 1.7 H D Glucose 100 Calcium 8.6 Cardiac Enzymes 11/27/24 11/27/24 11/28/24 Range/Units 17:55 23:55 05:31 Troponin I 0.075 H* 0.085 H* 0.085 H* (0.0-0.045) ng/mL Liver Function 11/28/24 Range/Units 05:31 Total Bilirubin 0.5 (0.3-1.2) mg/dL AST 23 (0-34) U/L ALT 17 (10-49) U/L Alkaline Phosphatase 85 (46-116) U/L Albumin 3.5 D (3.4-4.8) gm/dL Assessment & Plan Assessment and plan (1) Acute renal failure: Status: Acute Assessment and plan: Acute kidney injury on CKD is most likely due to prerenal. Creatinine is improving with IV hydration. Patient to have a history of a nephrectomy. CT scan report is reviewed. Continue with IV hydration Avoid nephrotoxic medications Monitor renal panel closely Follow-up as outpatient after discharge. (2) Chest pain: Status: Acute (3) S/P CABG x 3: Status: Acute (4) Renal insufficiency: Status: Acute
--- NOTE | 2024-11-28 13:51 | PC.PT ---
PT eval only. Patient was xI with bed mobility, transfers, and ambulation using no AD. Patient is safe to ambulate to the bathroom and in the halls with no AD and no staff. RN made aware.
[2024-11-28 14:48] LABS: Troponin I 0.071 ng/mL (0.0-0.045)
[2024-11-28] MEDS: ATORVASTATIN CALCIUM 20 MG TABLET PO (20:43)
[2024-11-29] VITALS (7 sets, daily range): BP systolic 115–155; BP diastolic 70–97; PULSE 70–80; RESP 16–22; TEMP 36.1–36.6; O2SAT 94–99
[2024-11-29] MEDS: LEVOTHYROXINE SODIUM 25 MCG TABLET PO (05:11)
[2024-11-29 05:48] LABS: Basophils # (Auto) 0.1 Thou/mm3 (0.0-0.2); Basophils % (Auto) 1 % (0-2.5); Eosinophils # (Auto) 0.3 Thou/mm3 (0.0-0.5); Eosinophils % (Auto) 4 % (0-10); Hematocrit 39.2 % (41.0-53.0); Hemoglobin 13.3 g/dL (13.5-16.0); Immature Granulocytes Auto 0.02 Thou/mm3 (0.00-0.00); Lymphocytes # (Auto) 2.0 Thou/mm3 (1.0-4.8); Lymphocytes % (Auto) 27 % (10-50); Mean Corpuscular HGB Conc 33.9 g/dl (31.0-37.0); Mean Corpuscular Hemoglobin 31.8 pg (25.0-35.0); Mean Corpuscular Volume 94 fL (80-100); Monocytes # (Auto) 0.8 Thou/mm3 (0.0-0.8); Monocytes % (Auto) 11 % (0-12); Neutrophils # (Auto) 4.2 Thou/mm3 (1.8-7.7); Neutrophils % (Auto) 56 % (37-80); Nucleated Red Blood Cell # 0.00 Thou/mm3 (0.00-0.00); Nucleated Red Blood Cell % 0 /100 WBC (0); Platelet Count 106 Thou/mm3 (140-440); RDW Standard Deviation 51.8 fL (35.1-43.9); Red Blood Count 4.18 Miln/mm3 (4.50-5.90); White Blood Count 7.4 Thou/mm3 (3.8-10.6)
[2024-11-29 06:04] LABS: INR 3.0 (0.9-1.3)
[2024-11-29 06:09] LABS: Alanine Aminotransferase 18 U/L (10-49); Albumin, Serum 3.8 gm/dL (3.4-4.8); Albumin/Globulin Ratio 1.7 (1.2-2.2); Alkaline Phosphatase 91 U/L (46-116); Anion Gap 7 (7-16); Aspartate Amino Transferase 23 U/L (0-34); BUN/Creatinine Ratio 14 Ratio (12-20); Bilirubin,Total 0.6 mg/dL (0.3-1.2); Blood Urea Nitrogen 21 mg/dL (9-23); Calcium 9.3 mg/dL (8.3-10.6); Calcium (Corrected) 9.5 mg/dL (8.5-10.1); Carbon Dioxide 25.1 mMol/L (20.0-31.0); Chloride 111 mMol/L (98-107); Creatinine (Component) 1.5 mg/dL (0.6-1.3); Estimated Creatinine Clearance 34.5 mL/min (>60); Globulin 2.2 gm/dL (2.3-3.5); Glucose 108 mg/dL (74-106); Osmolality,Calculated 288 (275-295); Potassium 4.8 mMol/L (3.4-5.1); Sodium 143 mMol/L (136-145); Total Protein 6.0 gm/dL (5.7-8.2); eGFR 45 See Note
[2024-11-29 06:33] LABS: Prothrombin Time 30.5 Seconds (9.0-12.2)
[2024-11-29] MEDS: LACTULOSE SYRUP 20 GM/30 ML UDC 10 GM PO (09:09)
[2024-11-29] MEDS: GABAPENTIN 300 MG CAPSULE PO (09:09)
[2024-11-29] MEDS: PANTOPRAZOLE 40 MG TABLET PO (09:09)
--- NOTE | 2024-11-29 14:08 | ESDS_ITS ---
Planned Discharge Date 11/29/24 DS: Providers Provider Date of admission: 11/27/24 17:33 Primary care physician: Fazal Carrillo MD Admitting Provider: Fidel Dobbs MD Attending Provider on Admission: Calixto Unger DO Consults: 11/28/24 08:02 Consult to Cardiology Routine Comment: Consulting Provider: Abdoulaye Dover 11/28/24 10:03 Referral Physical Therapy Routine Comment: Physician Instructions: Attending Provider on DC: Calixto Unger DO Discharging Provider: Vickie Lopez DO DS: Diagnosis Problem List Completed Was Problem List Reviewed/Reconciled?: Yes Hospital Course Hospital Course Hospital course: Summary: Patient is a a 89-year-old male with significant past medical history of bladder cancer, renal carcinoma s/p left nephrectomy (2023), chronic DVT s/p IVC filter placement and on warfarin, CKD, CAD status post CABG, status post pacemaker placement presented on 11/27 with chief complaints of chest pain, admitted for concern of NSTEMI type I versus type II. Consulted education program specialist Dr. Dover, did not recommend just observation. Warfarin was held due to supratherapeutic INR, resolved after 3 days without vit K and FFP. Was discharged with decreased dose. Also found to have dilatation of ascending thoracic aorta at 4mm, does not qualify for elective repair at this time and recommended surveillance in 6-12 months. Admitted with TIMOTHY on CKD but resolved with IV fluid resuscitation. Patient was safely discharged with instructions of close follow up, emphasized importance of checking INR weekly. ED Course: - Vitals were stable except for mild tachycardia with heart rate around 107 bpm. - Labs significant for hemoglobin 13.2, platelets 127, INR is not measurable, BUN 26, creatinine 2.2, troponin 0.061, BNP 223 - Urine analysis is unremarkable. 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 - EKG done at the time of admission showed wide-complex tachycardia which is paced without any acute ST and T wave changes Discharge Recommendations: -Follow-up with PCP within 1 week of discharge. If you do not have appointment, please follow-up with the regional hospital for respiratory and complex care with Dr. Cm. Call [phone] to make an appointment. 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 Patient plan of care was discussed with the attending physician, Dr. Unger. Vickie Lopez, PGY-1 Time Spent with Patient Time attestation: Total time spent providing and/or coordinating discharge services: Time spent: Greater than 30 minutes Exam Vital Signs Temp Pulse Resp BP Pulse Ox O2 Del Method 97.8 F 70 22 H 115/70 97 Room Air 11/29/24 11:43 11/29/24 12:00 11/29/24 11:43 11/29/24 11:43 11/29/24 11:43 11/29/24 11:43 Narrative Exam Physical Exam General: Awake and in no acute distress. Conversational and non-toxic appearing. HEENT: Normocephalic, atraumatic, mucous membranes moist. Heart: Regular rate and rhythm, normal S1 and S2, no murmurs appreciated. Pacemaker present. Lungs: Clear to auscultation with no wheezing or crackles. Abdomen: Soft, nondistended, nontender, positive bowel sounds. No guarding or rebound tenderness. Neurologic: Alert and oriented x3, no gross neurological deficit, and patient able to move all 4 extremities. Extremities: No edema. Varicose veins bilaterally. Skin: No rash or ecchymoses. Discharge Plan Plan Patient Disposition: Home w/HOME HEALTH Patient condition on transfer: Stable Care Plan Goals: -Follow-up with PCP within 1 week of discharge. If you do not have appointment, please follow-up with the regional hospital for respiratory and complex care with Dr. Cm. Call [phone] to make an appointment. -Recommended to take warfarin 4mg once daily -Recommended to take Furosemide 40mg ONCE DAILY UNTIL U SEE INFORMATION ASSURANCE MANAGER -Recommended to continue rest of the home medications -Return to ED if symptoms persist or return Prescriptions/Referrals Prescriptions/Med Rec: Continued furosemide 20 mg tablet 40 mg PO QDAY levothyroxine 25 mcg tablet 25 mcg PO DAILY gabapentin 300 mg capsule 300 mg PO Q12H carvedilol 3.125 mg tablet 3.125 mg PO Q12H Changed warfarin 5 mg tablet 4 mg PO QDAY Qty: 30 0RF Discontinued cefdinir 300 mg capsule 300 mg PO BID Qty: 14 0RF furosemide 40 mg tablet 40 mg PO Q12H Referrals: Fazal Carrillo MD [Primary Care Provider, Family Practice] Patient/Caregiver Discharge Instructions Education Materials: What to Know When Taking?Warfarin, Cardiac Rehab Getting Started, Heart Attack: Back at Home Print Language: [place] Stand Alone Forms: [employer] Award Info., Patient Portal Info Letter Discharge Order Discharge Orders: Discharge (Routine); Ordered 11/29/24 Ordered By: Eric Cm Quality Discharge Quality Measures VTE prophylaxis MD Attestestation MD Attestation I have discussed and was present for the essential components of the discharge history, physical examination, diagnosis, and discharge treatment plan with the resident. I agree with the patient's discharge care as documented by the resident and amended herein by me. Aguila Unger, . The patient understood all discharge instructions, all questions were answered satisfactorily. The patient was instructed to return to the Emergency Department is symptoms worsened or persisted. Although this document has been carefully reviewed, there may still be some phonetic and other typographical errors. These errors are purely grammatical due to imperfections in the software program and should not be construed in any way to compromise the substance of the patient's medical care during this visit.
--- NOTE | 2024-11-29 15:13 | PC.SS ---
SS met with patient regarding his d/c plan. Pt is alert/oriented. Pt was admitted for Chest Pain. Pt confirmed demographic and contact information is correct on facesheet. Pt resides with . Pt ambulates independently without assistance or DME. Pt is ok with all ADLs. Patient's physical address is: [address] [place] [address]. SS has contact pt registration to update patient's facesheet with his physical address. Patient?s pharmacy of choice is [facility]. Pt named his , Henna Leon medical decision maker if he is unable. SS provided verbal dc options for d/c to home or SNF. Patient?s choice is to return home upon d/c. Pt does not have an advance directive, SS offered, and pt declined. Pt states not diabetic and is not on dialysis. Pt states he followed up with PCP this month, Nov (last week). SS attempted contact Dr. Carrillo's office but was only able to leave voicemail. will provide transportation home. Pt does not have preference for HH. SS provided with [facility]. D/C plan: Return home Next of Kin: , Henna Leon, phone# [phone] PCP: Dr. Carrillo Address: [address] [place]
--- NOTE | 2024-11-29 16:50 | PC.CC ---
Addendum entered by Sarah Otero RN 11/29/24 16:58: Pt is booked with [facility], SOC is 12/01 Original Note: Sent HH referral to all agencies
== END 2024-11-29 16:04 | disposition home health service (06) | DRG 281 ==
LOC: SERX 16:36 → SERHOLD 17:46 → S2NX 21:00 → S3NX 11-29 05:33
PROVIDERS: Physician Assistant; Admitting Provider Student in an Organized Health Care Education/Training Program; Emergency Provider Emergency Medicine; PCP Family Medicine; Visit Provider Student in an Organized Health Care Education/Training Program
DX: I21.4 Non-ST elevation (NSTEMI) myocardial infarction (principal); D68.9 Coagulation defect, unspecified; N17.9 Acute kidney failure, unspecified; K57.32 Diverticulitis of large intestine without perforation or abscess without bleeding; I13.0 Hypertensive heart and chronic kidney disease with heart failure and stage 1 through stage 4 chronic kidney disease, or unspecified chronic kidney disease; I21.A1 Myocardial infarction type 2; E03.9 Hypothyroidism, unspecified; I25.10 Atherosclerotic heart disease of native coronary artery without angina pectoris; Z85.51 Personal history of malignant neoplasm of bladder; Z90.5 Acquired absence of kidney; E78.5 Hyperlipidemia, unspecified; I71.21 Aneurysm of the ascending aorta, without rupture; N18.30 Chronic kidney disease, stage 3 unspecified; Z95.1 Presence of aortocoronary bypass graft; R91.8 Other nonspecific abnormal finding of lung field; I50.9 Heart failure, unspecified; Z95.0 Presence of cardiac pacemaker; Z86.718 Personal history of other venous thrombosis and embolism; Z85.528 Personal history of other malignant neoplasm of kidney; M51.369 Other intervertebral disc degeneration, lumbar region without mention of lumbar back pain or lower extremity pain; Z79.01 Long term (current) use of anticoagulants; Z88.0 Allergy status to penicillin; Z90.79 Acquired absence of other genital organ(s); Z95.828 Presence of other vascular implants and grafts; Z79.899 Other long term (current) drug therapy
CPT/HCPCS: 36415; 71045; 71250; 71275; 74174; 74176; 76770; 80053; 83735; 83880; 84484; 85025; 85610; 85730; 93005; 96360; 96361; 97161; 99284; A4649; J7030; J7120; Q9967; A9270

== ENCOUNTER → 2024-12-02 | Outpatient (BNVA) | payer MEDICARE, BC, SELFPAY | END | disposition home or self-care (01) | PROVIDERS: PCP Family Medicine; Referring Provider Family Medicine; Visit Provider Urology | DX: M54.9 Dorsalgia, unspecified (principal); K57.92 Diverticulitis of intestine, part unspecified, without perforation or abscess without bleeding; I12.9 Hypertensive chronic kidney disease with stage 1 through stage 4 chronic kidney disease, or unspecified chronic kidney disease; N18.30 Chronic kidney disease, stage 3 unspecified; E66.9 Obesity, unspecified; Z68.27 Body mass index [BMI] 27.0-27.9, adult; Z85.51 Personal history of malignant neoplasm of bladder; Z85.528 Personal history of other malignant neoplasm of kidney; Z85.54 Personal history of malignant neoplasm of ureter; Z80.42 Family history of malignant neoplasm of prostate; Z90.5 Acquired absence of kidney | CPT/HCPCS: 81003; 99212; G0463 ==

== ENCOUNTER → 2024-12-06 | Outpatient (CLI) | payer MEDICARE, BC, SELFPAY ==
[2024-12-06 13:03] LABS: INR 1.8 (0.9-1.3); Prothrombin Time 18.5 Seconds (9.0-12.2)
== END | disposition home or self-care (01) ==
PROVIDERS: PCP Family Medicine; Referring Provider Family Medicine; Visit Provider Family Medicine
DX: Z01.89 Encounter for other specified special examinations (principal)
CPT/HCPCS: 36415; 85610

== ENCOUNTER → 2024-12-14 | Outpatient (CLI) | payer MEDICARE, BC, SELFPAY ==
[2024-12-14 15:13] LABS: INR 2.5 (0.9-1.3); Prothrombin Time 24.9 Seconds (9.0-12.2)
== END | disposition home or self-care (01) ==
LOC: COPL 13:22
PROVIDERS: PCP Family Medicine; Referring Provider Family Medicine; Visit Provider Family Medicine
DX: I82.431 Acute embolism and thrombosis of right popliteal vein (principal)
CPT/HCPCS: 36415; 85610

== ENCOUNTER → 2024-12-30 | Outpatient (CLI) | payer MEDICARE, BC, SELFPAY ==
[2024-12-30 13:22] LABS: Basophils # (Auto) 0.1 Thou/mm3 (0.0-0.2); Basophils % (Auto) 1 % (0-2.5); Eosinophils # (Auto) 0.4 Thou/mm3 (0.0-0.5); Eosinophils % (Auto) 5 % (0-10); Hematocrit 48.3 % (41.0-53.0); Hemoglobin 15.8 g/dL (13.5-16.0); Immature Granulocytes Auto 0.01 Thou/mm3 (0.00-0.00); Lymphocytes # (Auto) 2.8 Thou/mm3 (1.0-4.8); Lymphocytes % (Auto) 35 % (10-50); Mean Corpuscular HGB Conc 32.7 g/dl (31.0-37.0); Mean Corpuscular Hemoglobin 30.4 pg (25.0-35.0); Mean Corpuscular Volume 93 fL (80-100); Monocytes # (Auto) 0.7 Thou/mm3 (0.0-0.8); Monocytes % (Auto) 9 % (0-12); Neutrophils # (Auto) 3.9 Thou/mm3 (1.8-7.7); Neutrophils % (Auto) 49 % (37-80); Nucleated Red Blood Cell # 0.00 Thou/mm3 (0.00-0.00); Nucleated Red Blood Cell % 0 /100 WBC (0); Platelet Count 147 Thou/mm3 (140-440); RDW Standard Deviation 48.4 fL (35.1-43.9); Red Blood Count 5.20 Miln/mm3 (4.50-5.90); White Blood Count 8.0 Thou/mm3 (3.8-10.6)
[2024-12-30 13:45] LABS: Alanine Aminotransferase 20 U/L (10-49); Albumin, Serum 5.0 gm/dL (3.4-4.8); Albumin/Globulin Ratio 2.1 (1.2-2.2); Alkaline Phosphatase 126 U/L (46-116); Anion Gap 9 (7-16); Aspartate Amino Transferase 23 U/L (0-34); BUN/Creatinine Ratio 14 Ratio (12-20); Bilirubin,Total 0.9 mg/dL (0.3-1.2); Blood Urea Nitrogen 26 mg/dL (9-23); Calcium 9.7 mg/dL (8.3-10.6); Calcium (Corrected) 9.7 mg/dL (8.5-10.1); Carbon Dioxide 24.9 mMol/L (20.0-31.0); Chloride 107 mMol/L (98-107); Creatinine (Component) 1.8 mg/dL (0.6-1.3); Globulin 2.4 gm/dL (2.3-3.5); Glucose 93 mg/dL (74-106); Osmolality,Calculated 285 (275-295); Phosphorous 4.1 mg/dL (2.4-5.1); Potassium 5.0 mMol/L (3.4-5.1); Sodium 141 mMol/L (136-145); Total Protein 7.4 gm/dL (5.7-8.2); eGFR 36 See Note
[2024-12-30 13:48] LABS: INR 2.5 (0.9-1.3); Prothrombin Time 24.5 Seconds (9.0-12.2)
== END | disposition home or self-care (01) ==
PROVIDERS: PCP Family Medicine; Referring Provider Internal Medicine; Visit Provider Internal Medicine Hematology & Oncology
DX: C67.9 Malignant neoplasm of bladder, unspecified (principal); C64.9 Malignant neoplasm of unspecified kidney, except renal pelvis; I82.409 Acute embolism and thrombosis of unspecified deep veins of unspecified lower extremity; I82.431 Acute embolism and thrombosis of right popliteal vein; I12.9 Hypertensive chronic kidney disease with stage 1 through stage 4 chronic kidney disease, or unspecified chronic kidney disease; N18.32 Chronic kidney disease, stage 3b; I25.10 Atherosclerotic heart disease of native coronary artery without angina pectoris; Z90.5 Acquired absence of kidney; E87.5 Hyperkalemia
CPT/HCPCS: 36415; 80053; 84100; 85025; 85610

== ENCOUNTER → 2025-01-10 | Outpatient (CLI) | payer MEDICARE, BC, SELFPAY ==
--- NOTE | 2025-01-10 15:00 | XR_ITS ---
Examination: CT left hip, without contrast. 2-D sagittal reconstructions. 2-D coronal reconstructions. 3-D reconstructions. Date and time of exam: January 10, 2025, 1435 hours INDICATIONS: Patient fell 6 weeks ago with injury to the left hip, left hip pain CTDI: vol (mGy): 7.58 DLP: (mGycm): 282 Technique: Multiple 1.25 mm axial sections of the left hip and pelvis have been obtained. 2-D sagittal and coronal reconstructions have been obtained. 3-D reconstructions have been obtained. Low dose protocols were performed. One or more of the following dose reduction techniques were used; automated exposure control, adjustment of the mA and/or KV according to patient size, use of iterative reconstruction technique. Findings: No left hip fracture or dislocation Moderate left hip osteoarthritis Moderate right hip osteoarthritis Bones of the pelvis intact IMPRESSION: Moderate bilateral hip osteoarthritis No hip or pelvic fractures
== END | disposition home or self-care (01) ==
PROVIDERS: Referring Provider Family Medicine; Visit Provider Family Medicine
DX: M16.0 Bilateral primary osteoarthritis of hip (principal)
CPT/HCPCS: 73700

== ENCOUNTER → 2025-01-11 | Outpatient (CLI) | payer MEDICARE, BC, SELFPAY ==
--- NOTE | 2025-01-11 16:00 | XR_ITS ---
Examination: Venous duplex lower extremity sonogram, bilateral. Date and time of exam: 01/11/2025 at 4:38 p.m. INDICATION: Reassessment of blood clots. COMPARISON: Bilateral lower extremity venous ultrasound 06/29/2024. CTA chest abdomen and pelvis 11/27/2024. INDICATION: Technique: Multiple sonographic images of the deep venous system have been obtained. B-mode/2-D grayscale imaging of vascular structures and Doppler spectral analysis (waveforms) and color performed Both legs are examined. Findings: Numbness for acute occlusive DVT in either lower extremity. Redemonstration of chronic nonocclusive thrombi in the right superficial femoral vein, popliteal vein and right peroneal vein, as well as in the left superficial femoral vein, popliteal vein and peroneal vein. Previously visualized left posterior tibial vein thrombus is not seen. There are pulsatile waveforms in the bilateral lower extremity veins as well. Impression: No evidence for acute DVT in either lower extremity. Redemonstration of bilateral chronic nonocclusive DVTs as before except for apparent resolution of previously visualized left posterior tibial DVT. Biphasic venous waveforms suggest increased right heart pressure which could be due to right heart failure or tricuspid regurgitation.
--- NOTE | 2025-01-11 16:04 | XR_ITS ---
Examination: Abdomen AP single view Technique: AP portable supine abdomen, single view (2 images total Exam date and time: 01/11/2025, 4:10 p.m. INDICATION: Left lower quadrant pain for 5 days. History of right nephrectomy 8 years ago. COMPARISON: CTA angio chest abdomen pelvis 11/27/2024 FINDINGS: Unremarkable bowel gas pattern. No free air. A phlebolith is reidentified in the right hemipelvis, and there is bilateral iliac atherosclerosis and splenic artery atherosclerosis as well. Otherwise, no calcified stones in the projection of the gallbladder, the left kidney, left ureter or urinary bladder. Limited views of the chest show no evidence for acute airspace disease in the lower lung mariscal. Mild CABG sequela are present. A dual-chamber cardiac pacemaker is in place. Residual epicardial leads are also seen. 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 IMPRESSION: No radiographic evidence for acute abdomen. Consider follow-up CT of the abdomen pelvis to assess for possible diverticulitis in this patient with colonic diverticulosis.
[2025-01-11 16:59] LABS: Basophils # (Auto) 0.0 Thou/mm3 (0.0-0.2); Basophils % (Auto) 0 % (0-2.5); Eosinophils # (Auto) 0.0 Thou/mm3 (0.0-0.5); Eosinophils % (Auto) 1 % (0-10); Hematocrit 43.1 % (41.0-53.0); Hemoglobin 14.8 g/dL (13.5-16.0); Immature Granulocytes Auto 0.02 Thou/mm3 (0.00-0.00); Lymphocytes # (Auto) 0.8 Thou/mm3 (1.0-4.8); Lymphocytes % (Auto) 13 % (10-50); Mean Corpuscular HGB Conc 34.3 g/dl (31.0-37.0); Mean Corpuscular Hemoglobin 31.4 pg (25.0-35.0); Mean Corpuscular Volume 91 fL (80-100); Monocytes # (Auto) 0.1 Thou/mm3 (0.0-0.8); Monocytes % (Auto) 2 % (0-12); Neutrophils # (Auto) 5.1 Thou/mm3 (1.8-7.7); Neutrophils % (Auto) 84 % (37-80); Nucleated Red Blood Cell # 0.00 Thou/mm3 (0.00-0.00); Nucleated Red Blood Cell % 0 /100 WBC (0); Platelet Count 214 Thou/mm3 (140-440); RDW Standard Deviation 46.1 fL (35.1-43.9); Red Blood Count 4.72 Miln/mm3 (4.50-5.90); White Blood Count 6.1 Thou/mm3 (3.8-10.6)
[2025-01-11 17:23] LABS: Alanine Aminotransferase 16 U/L (10-49); Albumin, Serum 4.9 gm/dL (3.4-4.8); Albumin/Globulin Ratio 2.0 (1.2-2.2); Alkaline Phosphatase 126 U/L (46-116); Amylase 30 U/L (30-118); Anion Gap 12 (7-16); Aspartate Amino Transferase 21 U/L (0-34); BUN/Creatinine Ratio 14 Ratio (12-20); Bilirubin,Total 0.7 mg/dL (0.3-1.2); Blood Urea Nitrogen 28 mg/dL (9-23); Calcium 9.9 mg/dL (8.3-10.6); Calcium (Corrected) 9.9 mg/dL (8.5-10.1); Carbon Dioxide 25.1 mMol/L (20.0-31.0); Chloride 104 mMol/L (98-107); Creatinine (Component) 2.0 mg/dL (0.6-1.3); Globulin 2.4 gm/dL (2.3-3.5); Glucose 131 mg/dL (74-106); Lipase 39 U/L (12-53); Osmolality,Calculated 288 (275-295); Potassium 4.7 mMol/L (3.4-5.1); Sodium 141 mMol/L (136-145); Total Protein 7.3 gm/dL (5.7-8.2); eGFR 32 See Note
== END | disposition home or self-care (01) ==
LOC: CDIM 15:56 → COPL 16:23
PROVIDERS: PCP Family Medicine; Referring Provider Family Medicine; Visit Provider Radiology Diagnostic Radiology
DX: C67.9 Malignant neoplasm of bladder, unspecified (principal); C64.9 Malignant neoplasm of unspecified kidney, except renal pelvis; I82.409 Acute embolism and thrombosis of unspecified deep veins of unspecified lower extremity; R14.0 Abdominal distension (gaseous); R10.13 Epigastric pain
CPT/HCPCS: 36415; 74018; 80053; 81001; 82150; 83690; 85025; 93970

== ENCOUNTER → 2025-01-12 | Outpatient (CLI) | payer MEDICARE, BC, SELFPAY ==
[2025-01-12 09:32] LABS: Collection Type, Urine Clean Catch
[2025-01-12 10:53] LABS: Bilirubin,Urine Negative (Negative); Blood,Urine Negative (Negative); Clarity,Urine Clear (Clear/Hazy); Color,Urine Lt-Yellow (Lt Yel-Yel); Glucose, Urine Negative (Negative); Ketones,Urine Negative (Negative); Leukocyte Esterase,Urine Negative (Negative); Nitrite,Urine Negative (Negative); PH,Urine 5.5 (5.0-7.0); Protein,Urine Negative (Neg - Trace); RBC,Urine 1 /hpf (0-3); Specific Gravity,Urine 1.016 (1.001-1.035); Squamous Epithelial Cell,Urine 1 /hpf (0-5); Urobilinogen,Urine Negative mg/dL (0.0-1.0); WBC,Urine 1 /hpf (0-5)
== END | disposition home or self-care (01) ==
LOC: SLDO 09:25
PROVIDERS: Referring Provider Specialist; Visit Provider Specialist
DX: R14.0 Abdominal distension (gaseous) (principal); R10.13 Epigastric pain
CPT/HCPCS: 81001

== ENCOUNTER → 2025-01-25 | Outpatient (CLI) | payer MEDICARE, BC, SELFPAY ==
[2025-01-25 14:22] LABS: Basophils # (Auto) 0.1 Thou/mm3 (0.0-0.2); Basophils % (Auto) 1 % (0-2.5); Eosinophils # (Auto) 0.3 Thou/mm3 (0.0-0.5); Eosinophils % (Auto) 3 % (0-10); Hematocrit 44.1 % (41.0-53.0); Hemoglobin 14.5 g/dL (13.5-16.0); Immature Granulocytes Auto 0.05 Thou/mm3 (0.00-0.00); Lymphocytes # (Auto) 3.4 Thou/mm3 (1.0-4.8); Lymphocytes % (Auto) 39 % (10-50); Mean Corpuscular HGB Conc 32.9 g/dl (31.0-37.0); Mean Corpuscular Hemoglobin 31.1 pg (25.0-35.0); Mean Corpuscular Volume 95 fL (80-100); Monocytes # (Auto) 0.7 Thou/mm3 (0.0-0.8); Monocytes % (Auto) 8 % (0-12); Neutrophils # (Auto) 4.3 Thou/mm3 (1.8-7.7); Neutrophils % (Auto) 49 % (37-80); Nucleated Red Blood Cell # 0.00 Thou/mm3 (0.00-0.00); Nucleated Red Blood Cell % 0 /100 WBC (0); Platelet Count 162 Thou/mm3 (140-440); RDW Standard Deviation 48.3 fL (35.1-43.9); Red Blood Count 4.66 Miln/mm3 (4.50-5.90); White Blood Count 8.8 Thou/mm3 (3.8-10.6)
[2025-01-25 14:26] LABS: INR 2.0 (0.9-1.3); Partial Thromboplastin Time 32.4 Seconds (22.0-36.0); Prothrombin Time 19.9 Seconds (9.0-12.2)
[2025-01-25 14:27] LABS: Albumin, Serum 4.6 gm/dL (3.4-4.8); Anion Gap 10 (7-16); BUN/Creatinine Ratio 14 Ratio (12-20); Blood Urea Nitrogen 26 mg/dL (9-23); Calcium 9.6 mg/dL (8.3-10.6); Calcium (Corrected) 9.6 mg/dL (8.5-10.1); Carbon Dioxide 28.4 mMol/L (20.0-31.0); Chloride 107 mMol/L (98-107); Creatinine (Component) 1.9 mg/dL (0.6-1.3); Glucose 128 mg/dL (74-106); Osmolality,Calculated 295 (275-295); Phosphorous 4.1 mg/dL (2.4-5.1); Potassium 4.9 mMol/L (3.4-5.1); Sodium 145 mMol/L (136-145); eGFR 34 See Note
== END | disposition home or self-care (01) ==
LOC: COPL 12:33
PROVIDERS: PCP Family Medicine; Referring Provider Internal Medicine; Visit Provider Internal Medicine
DX: I12.9 Hypertensive chronic kidney disease with stage 1 through stage 4 chronic kidney disease, or unspecified chronic kidney disease (principal); N18.32 Chronic kidney disease, stage 3b; C67.9 Malignant neoplasm of bladder, unspecified; I25.10 Atherosclerotic heart disease of native coronary artery without angina pectoris; Z90.5 Acquired absence of kidney; E87.5 Hyperkalemia; I48.91 Unspecified atrial fibrillation; I82.431 Acute embolism and thrombosis of right popliteal vein
CPT/HCPCS: 36415; 80048; 80069; 85025; 85610; 85730

== ENCOUNTER 2025-01-31 10:31 | Outpatient (RCR) | payer MEDICARE, BC, SELFPAY | END 2025-02-05 23:59 | disposition home or self-care (01) | LOC: SCTC 10:31 | PROVIDERS: PCP Family Medicine; Referring Provider Family Medicine; Visit Provider Nurse Practitioner Family | DX: Z08 Encounter for follow-up examination after completed treatment for malignant neoplasm (principal); Z85.51 Personal history of malignant neoplasm of bladder; Z90.6 Acquired absence of other parts of urinary tract; Z86.718 Personal history of other venous thrombosis and embolism; Z79.01 Long term (current) use of anticoagulants | CPT/HCPCS: 99212; G0463 ==

== ENCOUNTER → 2025-02-09 | Outpatient (CLI) | payer MEDICARE, BC, SELFPAY ==
[2025-02-09 14:49] LABS: INR 2.5 (0.9-1.3); Prothrombin Time 24.5 Seconds (9.0-12.2)
== END | disposition home or self-care (01) ==
LOC: S2EX 02-13 11:19 → SLAB 02-13 11:21
PROVIDERS: PCP Family Medicine; Referring Provider Family Medicine; Visit Provider Family Medicine
DX: I82.431 Acute embolism and thrombosis of right popliteal vein (principal)
CPT/HCPCS: 36415; 85610